=== PATIENT | female | born 1945 | race Caucasian/White ===

== ENCOUNTER 2018-07-14 16:55 | Emergency (ER) | payer OTHER, SELFPAY ==
--- NOTE | 2018-07-14 17:38 | ER ---
Nurse's Notes [facility] Name: Sonia Barbour Age: 72 yrs Sex: Female : 1945 Arrival Date: 07/14/2018 Time: 16:59 Bed 5 Private MD: Leland Rdz Diagnosis: Urinary tract infection, site not specified Presentation: 07/14 17:00 Presenting complaint: Patient states: i can just barley pee, i need to pee all the time ch and it barbour. this started yesterday. And i have renal failure but i dont know which stage. and there are sores on my legs, they hurt. Transition of care: patient was not received from another setting of care. Onset of symptoms was July 13, 2018. Risk Assessment: Do you want to hurt yourself or someone else? Patient reports no desire to harm self or others. Initial Sepsis Screen: Does the patient meet any 2 criteria? No. Patient's initial sepsis screen is negative. Does the patient have a suspected source of infection? No. Patient's initial sepsis screen is negative. Care prior to arrival: None. 17:00 Method Of Arrival: Wheelchair ch 17:00 Acuity: PAULINO 4 ch Triage Assessment: 17:06 General: Appears in no apparent distress. comfortable, Behavior is calm, cooperative, ch appropriate for age. Historical: - Allergies: 17:06 Sulfa (Sulfonamide Antibiotics); ch - Home Meds: 17:06 Tresiba FlexTouch U-100 100 unit/mL (3 mL) subcutaneous inpn [Active]; furosemide 80 mg ch Oral tab 1 tab 2 times per day [Active]; Senokot 8.6 mg Oral tab 2 tabs once daily [Active]; aspirin 81 mg Oral chew 1 tab once daily [Active]; spironolactone 50 mg Oral tab 1 tab 2 times per day [Active]; allopurinol 100 mg Oral tab 1 tab once daily [Active]; amlodipine 5 mg tab 1 tab once daily [Active]; aloe vera 25 mg oral cap [Active]; atorvastatin 10 mg oral tab 1 tab once daily [Active]; - PMHx: 17:06 Hypertension; Lupus; Diabetes - IDDM; kidney failure; neck pain/crick; lymphedema; ch edema; COPD; hypoxia-normally 88-95%; - PSHx: 17:06 ; Cholecystectomy; navel probe; ch - Immunization history:: Adult Immunizations up to date. - Social history:: Smoking status: Patient/guardian denies using tobacco. - Ebola Screening: : Patient negative for fever greater than or equal to 101.5 degrees Fahrenheit, and additional compatible Ebola Virus Disease symptoms Patient denies exposure to infectious person Patient denies travel to an Ebola-affected area in the 21 days before illness onset No symptoms or risks identified at this time. Screenin:19 Abuse screen: Denies threats or abuse. Nutritional screening: No deficits noted. tw2 Tuberculosis screening: No symptoms or risk factors identified. Fall Risk None identified. Assessment: 17:10 General: Appears in no apparent distress. obese, unkempt, Behavior is calm, tw2 cooperative, appropriate for age. Pain: Complains of pain in "burning with urination". Neuro: Level of Consciousness is awake, alert, obeys commands, Oriented to person, place, time, situation. Cardiovascular: Denies chest pain, shortness of breath, Heart tones S1 S2 Capillary refill < 3 seconds Patient's skin is warm and dry. Respiratory: Airway is patent Respiratory effort is even, unlabored, Respiratory pattern is regular, symmetrical. GI: No signs and/or symptoms were reported involving the gastrointestinal system. Abdomen is round non-distended, obese, Bowel sounds present X 4 quads. : Reports burning with urination. EENT: No signs and/or symptoms were reported regarding the EENT system. Derm: No signs and/or symptoms reported regarding the dermatologic system. Skin is dry. Musculoskeletal: Circulation, motion, and sensation intact. Range of motion: intact in all extremities. 17:46 Reassessment: Patient appears in no apparent distress at this time. No changes from tw2 previously documented assessment. Patient and/or family updated on plan of care and expected duration. Pain level reassessed. Patient is alert, oriented x 3, equal unlabored respirations, skin warm/dry/pink. Vital Signs: 17:06 BP 174 / 79; Pulse 77; Resp 24; Temp 99.2; Pulse Ox 93% on R/A; Height 5 ft. 7 in. ch (170.18 cm); Pain 8/10; 17:14 Weight 130.95 kg; aa5 17:14 Body Mass Index 45.22 (130.95 kg, 170.18 cm) aa5 ED Course: 16:59 Patient arrived in ED. as 16:59 Leland Rdz MD is Private Physician. as 17:02 Triage completed. 17:06 Arm band placed on left wrist. Patient placed in an exam room, on a stretcher. 17:09 Constantino Perez PA is PHCP. jr8 17:17 Reva Nielsen RN is Primary Nurse. tw2 17:18 Bed in low position. Call light in reach. Adult w/ patient. Pulse ox on. NIBP on. tw2 17:26 Diaz Garcia MD is Attending Physician. jr8 17:30 Straight cath inserted, using sterile technique, 18 Fr. Specimen obtained. ROBBY Juárez tw2 served as archery instructor Returned odette urine. Patient tolerated well. 17:38 Leland Rdz MD is Referral Physician. jr8 17:42 Urine Microscopic Only Sent. tw2 17:46 No provider procedures requiring assistance completed. Patient did not have IV access tw2 during this emergency room visit. Administered Medications: No medications were administered Outcome: 17:38 Discharge ordered by . jr8 17:46 Discharged to home via wheelchair, with family. tw2 17:46 Condition: stable 17:46 Discharge instructions given to patient, family, Instructed on discharge instructions, follow up and referral plans. medication usage, Demonstrated understanding of instructions, follow-up care, medications, Prescriptions given X 1. 17:46 Patient left the ED. tw2 Addendum: 07/17/2018 08:46 Addendum: Culture Results: Positive urine culture. No further action required. Bacteria s s sensitive to prescribed antibiotic. Signatures: Ann Menezes RN RN ch Martinez, Amelia as Calderon, Audri, RN RN aa5 Shama Davis RN RN Constantino Perez PA PA jr8 Reva Nielsen RN RN tw2 Corrections: (The following items were deleted from the chart) 07/14 17:08 17:00 Presenting complaint: Patient states: i can just barley pee, i need to pee all ch the time and it barbour. this started yesterday. And i have renal failure but i dont know which stage.
--- NOTE | 2018-07-14 17:38 | EDPHYS ---
Physician Documentation [facility] Name: Sonia Bright Age: 72 yrs Sex: Female : 1945 Arrival Date: 07/14/2018 Time: 16:59 Bed 5 Private MD: Leland Rdz ED Physician Diaz Garcia HPI: 07/14 17:23 This 72 yrs old Female presents to ER via Wheelchair with complaints of jr8 Urinary Problem. 17:23 The patient presents with urinary symptoms, dysuria. Onset: The symptoms/episode jr8 began/occurred acutely, today. Modifying factors: The symptoms are alleviated by nothing, the symptoms are aggravated by urinating. Associated signs and symptoms: The patient has no apparent associated signs or symptoms. Severity of symptoms: At their worst the symptoms were moderate, in the emergency department the symptoms are unchanged. The patient has not experienced similar symptoms in the past. The patient has not recently seen a physician. Historical: - Allergies: 17:06 Sulfa (Sulfonamide Antibiotics); ch - Home Meds: 17:06 Tresiba FlexTouch U-100 100 unit/mL (3 mL) subcutaneous inpn [Active]; furosemide 80 mg ch Oral tab 1 tab 2 times per day [Active]; Senokot 8.6 mg Oral tab 2 tabs once daily [Active]; aspirin 81 mg Oral chew 1 tab once daily [Active]; spironolactone 50 mg Oral tab 1 tab 2 times per day [Active]; allopurinol 100 mg Oral tab 1 tab once daily [Active]; amlodipine 5 mg tab 1 tab once daily [Active]; aloe vera 25 mg oral cap [Active]; atorvastatin 10 mg oral tab 1 tab once daily [Active]; - PMHx: 17:06 Hypertension; Lupus; Diabetes - IDDM; kidney failure; neck pain/crick; lymphedema; ch edema; COPD; hypoxia-normally 88-95%; - PSHx: 17:06 ; Cholecystectomy; navel probe; ch - Immunization history:: Adult Immunizations up to date. - Social history:: Smoking status: Patient/guardian denies using tobacco. - Ebola Screening: : Patient negative for fever greater than or equal to 101.5 degrees Fahrenheit, and additional compatible Ebola Virus Disease symptoms Patient denies exposure to infectious person Patient denies travel to an Ebola-affected area in the 21 days before illness onset No symptoms or risks identified at this time. ROS: 17:23 Eyes: Negative for injury, pain, redness, and discharge, ENT: Negative for injury, jr8 pain, and discharge, Neck: Negative for injury, pain, and swelling, Cardiovascular: Negative for chest pain, palpitations, and edema, Respiratory: Negative for shortness of breath, cough, wheezing, and pleuritic chest pain, Abdomen/GI: Negative for abdominal pain, nausea, vomiting, diarrhea, and constipation, Back: Negative for injury and pain, MS/Extremity: Negative for injury and deformity, Skin: Negative for injury, rash, and discoloration, Neuro: Negative for headache, weakness, numbness, tingling, and seizure. 17:23 : Positive for urinary symptoms, small amounts, burning with urination. Exam: 17:23 Eyes: Pupils equal round and reactive to light, extra-ocular motions intact. Lids and jr8 lashes normal. Conjunctiva and sclera are non-icteric and not injected. Cornea within normal limits. Periorbital areas with no swelling, redness, or edema. ENT: Nares patent. No nasal discharge, no septal abnormalities noted. Tympanic membranes are normal and external auditory canals are clear. Oropharynx with no redness, swelling, or masses, exudates, or evidence of obstruction, uvula midline. Mucous membranes moist. Neck: Trachea midline, no thyromegaly or masses palpated, and no cervical lymphadenopathy. Supple, full range of motion without nuchal rigidity, or vertebral point tenderness. No Meningismus. Cardiovascular: Regular rate and rhythm with a normal S1 and S2. No gallops, murmurs, or rubs. Normal PMI, no JVD. No pulse deficits. 3 + bilateral lower extremity edema Respiratory: Lungs have equal breath sounds bilaterally, clear to auscultation and percussion. No rales, rhonchi or wheezes noted. No increased work of breathing, no retractions or nasal flaring. Abdomen/GI: Soft, non-tender, with normal bowel sounds. No distension or tympany. No guarding or rebound. No evidence of tenderness throughout. Back: No spinal tenderness. No costovertebral tenderness. Full range of motion. Skin: Warm, dry with normal turgor. Normal color with no rashes, no lesions, and no evidence of cellulitis. MS/ Extremity: Pulses equal, no cyanosis. Neurovascular intact. Full, normal range of motion. Neuro: Awake and alert, GCS 15, oriented to person, place, time, and situation. Cranial nerves II-XII grossly intact. Motor strength 5/5 in all extremities. Sensory grossly intact. Vital Signs: 17:06 BP 174 / 79; Pulse 77; Resp 24; Temp 99.2; Pulse Ox 93% on R/A; Height 5 ft. 7 in. ch (170.18 cm); Pain 8; 17:14 Weight 130.95 kg; aa5 17:14 Body Mass Index 45.22 (130.95 kg, 170.18 cm) [facility] MDM: 17:09 Patient medically screened. [facility] 17:37 Data reviewed: vital signs, nurses notes, lab test result(s), and as a result, I will 8 discharge patient. Data interpreted: Pulse oximetry: on room air is 93 %. Interpretation: acceptable. Counseling: I had a detailed discussion with the patient and/or guardian regarding: the historical points, exam findings, and any diagnostic results supporting the discharge/admit diagnosis, lab results, the need for outpatient follow up, a family practitioner, to return to the emergency department if symptoms worsen or persist or if there are any questions or concerns that arise at home. 07/14 17:19 Order name: Urine Microscopic Only [facility] 07/14 17:38 Order name: Urine Dipstick--Ancillary (enter results) bd 07/14 17:19 Order name: Urine Dipstick-Ancillary (obtain specimen); Complete Time: 17:42 [facility] 07/14 17:20 Order name: Straight Cath - Urine; Complete Time: 17:39 [facility] Administered Medications: No medications were administered Disposition: 07/14/18 17:38 Discharged to Home. Impression: Urinary tract infection, site not specified. - Condition is Stable. - Discharge Instructions: Urinary Tract Infection, Adult. - Prescriptions for Levaquin 500 mg Oral Tablet - take 1 tablet by ORAL route once daily for 5 days; 5 tablet. - Medication Reconciliation Form, Thank You Letter, Antibiotic Education, Prescription Opioid Use form. - Follow up: Leland Rdz MD; When: 2 - 3 days; Reason: Recheck today's complaints, Continuance of care, Re-evaluation by your physician. - Problem is new. - Symptoms have improved. Addendum: 07/15/2018 17:47 Co-signature as Attending Physician, Diaz Garcia MD I agree with the assessment and c gunter plan of care. Signatures: Dispatcher [employer] EDAnn Molina, RN RN Diaz Nunez MD MD cha Roszak, Josh, PA PA jr8 Reva Nielsen, RN RN tw2 Corrections: (The following items were deleted from the chart) 07/14 17:46 17:38 07/14/2018 17:38 Discharged to Home. Impression: Urinary tract infection, site tw2 not specified. Condition is Stable. Forms are Medication Reconciliation Form, Thank You Letter, Antibiotic Education, Prescription Opioid Use. Follow up: Leland Rdz; When: 2 - 3 days; Reason: Recheck today's complaints, Continuance of care, Re-evaluation by your physician. Problem is new. Symptoms have improved. jr8
[2018-07-14 17:49] LABS: Urine Bacteria LOADED /HPF (<20); Urine RBC <5 /HPF (NONE SEEN)
[2018-07-14 17:50] LABS: Urine Culture Reflex Order REFLEXED
[2018-07-14 17:57] LABS: Urine Blood TRACE (NEG); Urine Glucose NEGATIVE (NEG); Urine Protein NEGATIVE (NEG); Urine pH 5.5 (5.0-7.0)
== END 2018-07-14 17:46 | disposition home or self-care (01) ==
LOC: ER 16:55
DX: N39.0 Urinary tract infection, site not specified (principal); I10 Essential (primary) hypertension; E11.9 Type 2 diabetes mellitus without complications; J44.9 Chronic obstructive pulmonary disease, unspecified; Z79.4 Long term (current) use of insulin; Z79.82 Long term (current) use of aspirin; Z88.2 Allergy status to sulfonamides
CPT/HCPCS: 51702; 81003; 81015; 87077; 87086; 87088; 87186; 99283

== ENCOUNTER 2019-05-15 23:47 | Observation (INO) | payer OTHER ==
[2019-05-16 00:38] LABS: Absolute Lymphocytes (CBC) 2.6 K/uL (0.7-4.9); Basophils % 0.6 % (0-1.3); Hematocrit 49.7 % (36.0-45.0); Lymphocytes % 23.8 % (15.3-44.8); MPV 8.6 fL (7.6-11.3); RBC Red Blood Cell Count 6.01 M/uL (3.86-4.86)
[2019-05-16 00:43] LABS: Protime INR 1.09
[2019-05-16 01:00] LABS: ALT/SGPT 25 U/L (12-78); AST/SGOT 26 U/L (15-37); Alkaline Phosphatase 151 U/L (45-117); BUN Blood Urea Nitrogen 23 mg/dL (7-18); Bicarbonate 35 mmol/L (21-32); Bilirubin Direct 0.2 mg/dL (0-0.2); Bilirubin Total 0.6 mg/dL (0.2-1.0); CKMB Creatine Kinase MB < 1.0 ng/mL (0.3-3.6); Creatine Phosphokinase 35 U/L (26-192); Glucose Level 79 mg/dL (74-106); Lipase 202 U/L (73-393); Magnesium 2.1 mg/dL (1.8-2.4); NT PRO-BNP 255 pg/mL (<125); Protein, Total 8.1 g/dL (6.4-8.2); Sodium Level 137 mmol/L (136-145); Troponin (Emerg Dept Use Only) < 0.02 ng/mL (0.0-0.045)
--- NOTE | 2019-05-16 02:45 | EDPHYS ---
Physician Documentation [facility] Name: Sonia Bright Age: 73 yrs Sex: Female : 1945 Arrival Date: 05/15/2019 Time: 23:50 Bed 4 Private MD: Lealnd Rdz ED Physician Molina Kincaid HPI: 05/16 02:58 This 73 yrs old Female presents to ER via Wheelchair with complaints of tw4 Breathing Difficulty. 02:58 The patient has shortness of breath at rest. Onset: The symptoms/episode began/occurred tw4 2 day(s) ago. Duration: The symptoms are continuous, and are unchanged since they started. The patient's shortness of breath has no apparent modifying factors. Associated signs and symptoms: The patient has no apparent associated signs or symptoms. Severity of symptoms: At their worst the symptoms were moderate in the emergency department the symptoms are unchanged. The patient has not experienced similar symptoms in the past. Historical: - Allergies: 00:06 Sulfa (Sulfonamide Antibiotics); ak1 00:06 Lidocaine; ak1 00:06 Novocain; ak1 - Home Meds: 00:06 Tresiba FlexTouch U-100 100 unit/mL (3 mL) subcutaneous inpn [Active]; spironolactone ak1 50 mg Oral tab 1 tab 2 times per day [Active]; Senokot 8.6 mg Oral tab 2 tabs once daily [Active]; furosemide 80 mg Oral tab 1 tab 2 times per day [Active]; atorvastatin 10 mg Oral tab 1 tab once daily [Active]; aspirin 81 mg Oral chew 1 tab once daily [Active]; amlodipine 5 mg tab 1 tab once daily [Active]; allopurinol 100 mg Oral tab 1 tab once daily [Active]; aloe vera 25 mg Oral cap [Active]; - PMHx: 00:06 COPD; Diabetes - IDDM; Diabetes - NIDDM; EDEMA; Hypertension; hypoxia-normally 88-95%; ak1 kidney failure; Lupus; lymphedema; neck pain/crick; - PSHx: 00:06 ; Cholecystectomy; navel probe; ak1 - Immunization history:: Adult Immunizations unknown. - Social history:: Smoking status: Patient/guardian denies using tobacco, the patient reports quitting approximately 35 years ago. - Ebola Screening: : No symptoms or risks identified at this time. ROS: 02:58 Constitutional: Negative for fever, chills, and weight loss, Eyes: Negative for injury, tw4 pain, redness, and discharge, Cardiovascular: Negative for chest pain, palpitations, and edema, Abdomen/GI: Negative for abdominal pain, nausea, vomiting, diarrhea, and constipation, Back: Negative for injury and pain, MS/Extremity: Negative for injury and deformity, Skin: Negative for injury, rash, and discoloration, Neuro: Negative for headache, weakness, numbness, tingling, and seizure. 02:58 Respiratory: Positive for shortness of breath. Exam: 02:58 Constitutional: This is a well developed, well nourished patient who is awake, alert, tw4 and in no acute distress. Head/Face: Normocephalic, atraumatic. Chest/axilla: Normal chest wall appearance and motion. Nontender with no deformity. No lesions are appreciated. Cardiovascular: Regular rate and rhythm with a normal S1 and S2. No gallops, murmurs, or rubs. Normal PMI, no JVD. No pulse deficits. Respiratory: Lungs have equal breath sounds bilaterally, clear to auscultation and percussion. No rales, rhonchi or wheezes noted. No increased work of breathing, no retractions or nasal flaring. Abdomen/GI: Soft, non-tender, with normal bowel sounds. No distension or tympany. No guarding or rebound. No evidence of tenderness throughout. 02:58 Musculoskeletal/extremity: Extremities: noted in the left wilson: chronic venous stasis ulcers, noted in the right wilson: chronic venous stasis ulcers. Vital Signs: 05/15 23:58 BP 152 / 73; Pulse 77; Resp 20; Temp 97.5(O); Pulse Ox 89% on R/A; Weight 113.4 kg (R); ak1 Height 5 ft. 9 in. (175.26 cm) (R); Pain 0/10; 05/16 00:02 Pulse Ox 94% on 2 lpm NC; ak1 01:57 BP 125 / 67; Pulse 73; Resp 18; Temp 97.6(TE); Pulse Ox 93% on 2 lpm NC; Pain 0/10; ak1 03:00 BP 142 / 68; Pulse 76; Resp 18; Pulse Ox 93% on 2 lpm NC; jb4 05/15 23:58 Body Mass Index 36.92 (113.40 kg, 175.26 cm) ak1 MDM: 05/15 23:54 Patient medically screened. 05/16 02:58 Differential diagnosis: Anxiety Reaction asthma, Bronchitis CHF exacerbation, tw4 Myocardial Infarction pneumonia. Antibiotic administration: Not indicated. Data reviewed: vital signs, nurses notes. Data interpreted: Pulse oximetry: on room air is 88 %. Interpretation: hypoxia. Plan: O2 by NC applied. Counseling: I had a detailed discussion with the patient and/or guardian regarding: the historical points, exam findings, and any diagnostic results supporting the discharge/admit diagnosis, lab results, radiology results. Physician consultation: Ron Schumacher MD was called at 03:00, regarding admission, to the telemetry unit. and will see patient in inpatient room. 05/15 23:55 Order name: Blood Culture Adult (2) 05/15 23:55 Order name: BMP; Complete Time: :57 05/16 01:57 Interpretation: Normal except: CL 97; BUN 23; GFR 41. 05/15 23:55 Order name: CBC with Diff; Complete Time: 01:57 05/16 01:57 Interpretation: Normal except: WBC 11.1; RBC 6.01; HGB 16.0; HCT 49.7; MCV 82.7; MCH tw4 26.6; PLT 633; RDW 19.0. 05/15 23:55 Order name: Ckmb; Complete Time: 01:57 05/16 01:58 Interpretation: Within normal limits: CKMB < 1.0. 05/15 23:55 Order name: CPK; Complete Time: 01:57 05/16 01:58 Interpretation: Within normal limits: CPK 35. 05/15 23:55 Order name: D-Dimer; Complete Time: 01:58 05/16 01:58 Interpretation: Abnormal: D-DIMER 810. 05/15 23:55 Order name: Hepatic Function; Complete Time: 01:57 05/16 01:57 Interpretation: Normal except: ALK 151; ALB 3.0; GLOB 5.1; A/G 0.6. 05/15 23:55 Order name: Lipase; Complete Time: 01:57 05/16 01:58 Interpretation: Within normal limits: LIP 202. 05/15 23:55 Order name: Magnesium; Complete Time: 01:57 tw 05/16 01:58 Interpretation: Within normal limits: MG 2.1. 05/15 23:55 Order name: NT PRO-BNP; Complete Time: 01:57 [email or web address]] 05/16 01:58 Interpretation: Normal except: NT PRO-BNP 255. 05/15 23:55 Order name: PT-INR; Complete Time: 01:59 05/16 01:59 Interpretation: Abnormal. 05/15 23:55 Order name: Ptt, Activated; Complete Time: 01:59 05/16 01:59 Interpretation: Abnormal: PTT 63.4. 05/15 23:55 Order name: Troponin (emerg Dept Use Only); Complete Time: 01:57 [facility] [[email or web address]] 05/16 01:58 Interpretation: Within normal limits: TROPED < 0.02. 05/16 00:25 Order name: Glucose, Ancillary Testing; Complete Time: 01:57 EDMS 05/16 01:58 Interpretation: Within normal limits: GLUC,ANCIL 80. 05/15 23:55 Order name: Call for Old EKG; Complete Time: 00:02 05/15 23:55 Order name: XRAY CXR (1 view) 05/15 23:55 Order name: EKG; Complete Time: 23:58 05/15 23:55 Order name: Cardiac monitoring; Complete Time: 00:02 05/15 23:55 Order name: EKG - Nurse/Tech; Complete Time: 00:02 05/15 23:55 Order name: IV Saline Lock; Complete Time: 00:28 05/15 23:55 Order name: Labs collected and sent; Complete Time: 00:29 05/15 23:55 Order name: O2 Per Protocol; Complete Time: 00:02 05/15 23:55 Order name: O2 Sat Monitoring; Complete Time: 00:02 05/16 03:12 Order name: Troponin I EDMS 05/16 03:12 Order name: Troponin I EDMS EC:07 Rate is 63 beats/min. Rhythm is regular with 1st degree heart block. QRS [place] is tw4 Normal. SD interval is normal. QRS interval is normal. No Q waves. T waves are Normal. No ST changes noted. Clinical impression: NSR w/ Non-specific ST/T Changes. Interpreted by me. Reviewed by me. Administered Medications: No medications were administered Point of Care Testing: Blood Glucose: 00:25 Blood Glucose: 80 mg/dL; ak1 00:25 pt stated she felt as if her blood sugar was "low" pt given orange juice. ak1 Ranges: Critical Glucose Levels:Adult <50 mg/dl or >400 mg/dl <40 mg/dl or >180 mg/dl Disposition: 05/16/19 02:43 Hospitalization ordered by Ron Schumacher for Inpatient Admission. Preliminary diagnosis is Chronic obstructive pulmonary disease with (acute) exacerbation. - Bed requested for Telemetry/MedSurg (observation). - Status is Inpatient Admission. fc - Condition is Fair. - Problem is an ongoing problem. - Symptoms are unchanged. UTI on Admission? No Signatures: Dispatcher [employer] [facility] Lexie Boudreaux, RN RN Meenakshi Mckeon RN RN ak1 Molina Kincaid MD MD tw4 Enedina Villarreal mw2 Bri Lowe ar5 Corrections: (The following items were deleted from the chart) 02:04 00:37 Chest For PE [id number].[id number] ordered. [facility] 03:16 02:43 Hospitalization Ordered by Ron Schumacher MD for Inpatient Admission. Preliminary ar5 diagnosis is Chronic obstructive pulmonary disease with (acute) exacerbation. Bed requested for Telemetry/MedSurg (observation). Status is Inpatient Admission. Condition is Fair. Problem is an ongoing problem. Symptoms are unchanged. UTI on Admission? No. tw4 04:16 03:16 05/16/2019 02:43 Hospitalization Ordered by Ron Schumacher MD for Inpatient fc Admission. Preliminary diagnosis is Chronic obstructive pulmonary disease with (acute) exacerbation. Bed requested for Telemetry/MedSurg (observation). Status is Inpatient Admission. Condition is Fair. Problem is an ongoing problem. Symptoms are unchanged. UTI on Admission? No. ar5
--- NOTE | 2019-05-16 02:45 | ER ---
Nurse's Notes [facility] Name: Sonia Bright Age: 73 yrs Sex: Female : 1945 Arrival Date: 05/15/2019 Time: 23:50 Bed 4 Private MD: Leland Rdz Diagnosis: Chronic obstructive pulmonary disease with (acute) exacerbation Presentation: 05/16 00:02 Presenting complaint: Patient states: SOB "for a long time" that worsened tonight at ak1 1700. pt denies pain. Transition of care: patient was not received from another setting of care. Onset of symptoms is unknown. Risk Assessment: Do you want to hurt yourself or someone else? Patient reports no desire to harm self or others. Initial Sepsis Screen: Does the patient meet any 2 criteria? No. Patient's initial sepsis screen is negative. Does the patient have a suspected source of infection? No. Patient's initial sepsis screen is negative. Care prior to arrival: None. 00:02 Method Of Arrival: Wheelchair ak1 00:02 Acuity: PAULINO 3 ak1 00:02 Note pt is wheelchair bound. ak1 Triage Assessment: 00:06 General: Appears in no apparent distress. obese, unkempt, Behavior is calm, ak1 cooperative. Pain: Denies pain. EENT: No signs and/or symptoms were reported regarding the EENT system. Neuro: Level of Consciousness is awake, alert, obeys commands, Oriented to person, place, time, situation, Moves all extremities. Gait is pt uses wheelchair at home. . Speech is normal. 00:29 Respiratory: Reports shortness of breath at rest on exertion since 1700 Onset: The ak symptoms/episode began/occurred 1700 tonight SOB worsened. pt stated she has had SOB "for a long time" pt sees Dr. Couch and states she need a sleep study done. , the patient has mild shortness of breath Denies cough. Historical: - Allergies: 00:06 Sulfa (Sulfonamide Antibiotics); ak1 00:06 Lidocaine; ak1 00:06 Novocain; ak1 - Home Meds: 00:06 Tresiba FlexTouch U-100 100 unit/mL (3 mL) subcutaneous inpn [Active]; spironolactone ak1 50 mg Oral tab 1 tab 2 times per day [Active]; Senokot 8.6 mg Oral tab 2 tabs once daily [Active]; furosemide 80 mg Oral tab 1 tab 2 times per day [Active]; atorvastatin 10 mg Oral tab 1 tab once daily [Active]; aspirin 81 mg Oral chew 1 tab once daily [Active]; amlodipine 5 mg tab 1 tab once daily [Active]; allopurinol 100 mg Oral tab 1 tab once daily [Active]; aloe vera 25 mg Oral cap [Active]; - PMHx: 00:06 COPD; Diabetes - IDDM; Diabetes - NIDDM; EDEMA; Hypertension; hypoxia-normally 88-95%; ak1 kidney failure; Lupus; lymphedema; neck pain/crick; - PSHx: 00:06 ; Cholecystectomy; navel probe; ak1 - Immunization history:: Adult Immunizations unknown. - Social history:: Smoking status: Patient/guardian denies using tobacco, the patient reports quitting approximately 35 years ago. - Ebola Screening: : No symptoms or risks identified at this time. Screenin:25 Abuse screen: Denies threats or abuse. Denies injuries from another. Nutritional ak1 screening: No deficits noted. Tuberculosis screening: No symptoms or risk factors identified. Fall Risk Ambulatory Aid- Crutches/Cane/Walker (15 pts). Assessment: 00:25 General: Appears in no apparent distress. comfortable, obese, unkempt, Behavior is ak1 calm, cooperative, appropriate for age. Pain: Denies pain. Neuro: Level of Consciousness is awake, alert, obeys commands, Oriented to person, place, time, situation, Appropriate for age Logistics Planner are equal bilaterally Moves all extremities. Gait is pt uses wheelchair at home and needs assistance with ambulation. . Cardiovascular: Rhythm is regular. Respiratory: Airway is patent Respiratory effort is even, unlabored, Respiratory pattern is regular, symmetrical, Breath sounds are clear bilaterally. GI: No signs and/or symptoms were reported involving the gastrointestinal system. : No signs and/or symptoms were reported regarding the genitourinary system. EENT: No signs and/or symptoms were reported regarding the EENT system. Derm: No signs and/or symptoms reported regarding the dermatologic system. Musculoskeletal: pt uses wheelchair at home, needs assistance with ambulation. 01:23 Reassessment: pt in CT. ak1 01:58 Reassessment: Patient appears in no apparent distress at this time. No changes from ak1 previously documented assessment. Patient and/or family updated on plan of care and expected duration. Pain level reassessed. Patient is alert, oriented x 3, equal unlabored respirations, skin warm/dry/pink. pt returned from CT with skin tears from attempt at moving from ER stretcher to CT table. pipe organ technician Mona stated pt refused to lay flat for CT. pt stated she can not lay flat, she can not breath laying flat. Dr. Kincaid notified. Vital Signs: 05/15 23:58 BP 152 / 73; Pulse 77; Resp 20; Temp 97.5(O); Pulse Ox 89% on R/A; Weight 113.4 kg (R); ak1 Height 5 ft. 9 in. (175.26 cm) (R); Pain 0/10; 05/16 00:02 Pulse Ox 94% on 2 lpm NC; ak1 01:57 BP 125 / 67; Pulse 73; Resp 18; Temp 97.6(TE); Pulse Ox 93% on 2 lpm NC; Pain 0/10; ak1 03:00 BP 142 / 68; Pulse 76; Resp 18; Pulse Ox 93% on 2 lpm NC; jb4 05/15 23:58 Body Mass Index 36.92 (113.40 kg, 175.26 cm) ak1 ED Course: 05/15 23:50 Patient arrived in ED. es 23:50 Leland Rdz MD is Private Physician. es 23:54 Molina Kincaid MD is Attending Physician. tw4 23:58 Arm band placed on Patient placed in an exam room, on a stretcher, on oxygen, on ak1 monitor car operator, on pulse oximetry. 05/16 00:03 Triage completed. ak1 00:20 Initial lab(s) drawn, by ky, sent to lab. First set of blood cultures drawn by me, ak1 Second set of blood cultures drawn pedi culture sent EKG done, by ED staff, reviewed by Molina Kincaid MD X-ray(s) taken. Oxygen administration via nasal cannula \\T\\ 2L/min. 00:25 Meenakshi Mckeon, RN is Primary Nurse. ak1 00:25 Patient has correct armband on for positive identification. Placed in gown. Bed in low ak1 position. Call light in reach. Side rails up X2. Adult w/ patient. court recording monitor on. Pulse ox on. NIBP on. 00:25 Inserted saline lock: 20 gauge in right antecubital area, using aseptic technique. ak1 Blood collected. 00:27 XRAY CXR (1 view) In Process Unspecified. EDMN 02:43 Ron Schumacher MD is Hospitalizing Provider. tw4 02:51 No provider procedures requiring assistance completed. Patient admitted, IV remains in ak1 place. Administered Medications: No medications were administered Point of Care Testing: Blood Glucose: 00:25 Blood Glucose: 80 mg/dL; ak1 00:25 pt stated she felt as if her blood sugar was "low" pt given orange juice. ak1 Ranges: Outcome: 02:43 Decision to Hospitalize by Provider. tw4 02:51 Condition: good ak1 02:51 Instructed on the need for admit. 03:54 Admitted to Tele accompanied by tech, family with patient, via stretcher, room 419, ak1 with oxygen, with chart, Report called to Denita BUSTAMANTE 04:16 Patient left the ED. fc Signatures: Dispatcher [employer] Preeti Ellison Felicia, RN RN fc Meenakshi Mcekon RN RN ak1 Louis Rock, ROBBY RN 4 Molina Kincaid MD MD tw4
[2019-05-16] MEDS ORDERED: IPRATROPIUM BROM 0.5MG/2.5ML NEB PRN (03:10)
[2019-05-16] MEDS ORDERED: ACETAMINOPHEN 500 MG TAB PO PRN (03:10)
[2019-05-16] MEDS ORDERED: ALBUTEROL 2.5 MG/3 ML NEB SOL NEB PRN (03:10)
[2019-05-16] MEDS ORDERED: METHYLPREDNISOLONE 40 MG INJ IV SCH (04:00)
[2019-05-16 04:38] VITALS: BMI 44.0
--- NOTE | 2019-05-16 07:45 | P.HP ---
Certification for Inpatient Patient admitted to: Observation With expected LOS: <2 Midnights Patient will require the following post-hospital care: None Practitioner: I am a practitioner with admitting privileges, knowledge of patient current condition, hospital course, and medical plan of care. Services: Services provided to patient in accordance with Admission requirements found in Title 42 Section 412.3 of the Code of Federal Regulations Patient History Date of Service: 05/16/19 Reason for admission: Acute COPD exacerbation History of Present Illness: Patient is a 73-year-old female who presents to the hospital with shortness of breath. She states she has been feeling some abdominal distention and has noticed that she has had more difficulty with her respirations over the last 24 hours. She came into the hospital for further evaluation. In the emergency room, patient was found to have a leukocytosis and was hypoxic with the O2 sat of 89%. Patient has been told she possibly has obstructive sleep apnea but she has not arranged for outpatient sleep study. She does have a history of diastolic congestive heart failure & COPD. She is on Lasix and Aldactone. She will be admitted to the hospital for further evaluation. Initially, she had stated that she was feeling better and wanted to go home. However, they stated they would be able to get her upstairs immediately, and she decided to stay in the hospital for further evaluation. I found out that patient was still in the hospital after reviewing medical records. Will consult Pulmonary for further evaluation. Allergies Sulfa (Sulfonamide Antibiotics) Allergy (Verified 07/26/12 14:13) Anaphylaxis "all victorina for numbing" Allergy (Uncoded 03/31/19 08:36) Unknown Albuterol Allergy (Uncoded 02/24/15 00:47) Unknown Home Medications: Allopurinol [Zyloprim] 100 mg PO DAILY 03/31/19 Amlodipine [Norvasc] 5 mg PO DAILY 03/31/19 Atorvastatin Calcium [Lipitor] 10 mg PO BEDTIME 03/31/19 Furosemide 80 mg PO DAILY 03/31/19 Insulin Aspart [Novolog Flexpen] 55 unit SQ TID 03/31/19 Insulin Degludec [Tresiba Flextouch U-200] 100 unit SQ DAILY 03/31/19 Spironolactone [Aldactone] 50 mg PO BID 03/31/19 - Past Medical/Surgical History Has patient received pneumonia vaccine in the past: No Diabetic: Yes -: HTN -: DM -: Lymphedema -: Insomnia -: -: Cholecystectomy - Family History Father Medical History: Cancer Mother Medical History: Stroke - Social History Smoking Status: Former smoker Alcohol use: No CD- Drugs: No Caffeine use: Yes Place of Residence: Home Review of Systems 10-point ROS is otherwise unremarkable Physical Examination - Vital Signs Temperature: 96.5 F Blood Pressure: 141/68 Pulse: 81 Respirations: 16 Pulse Ox (%): 94 - Physical Exam General: Alert, In no apparent distress, Oriented x3 HEENT: Atraumatic, PERRLA, Mucous membr. moist/pink, EOMI, Sclerae nonicteric Neck: Supple, 2+ carotid pulse no bruit, No LAD, Without JVD or thyroid abnormality Respiratory: Diminished, Expiratory wheezes Cardiovascular: Regular rate/rhythm, Normal S1 S2, Systolic murmur Gastrointestinal: Normal bowel sounds, Soft and benign, Non-distended, No tenderness Musculoskeletal: No clubbing, No tenderness, Swelling Integumentary: No rashes Neurological: Normal speech, Normal tone, Sensation intact, Cranial nerves 3-12 intact, Normal affect, Abnormal gait, Abnormal strength Lymphatics: No axilla or inguinal lymphadenopathy - Studies Laboratory Data (last 24 hrs) 05/16/19 00:20: PT 12.8 H, INR 1.09, APTT 63.4 H 05/16/19 00:20: WBC 11.1 H, Hgb 16.0 H, Hct 49.7 H, Plt Count 633 H 05/16/19 00:20: Sodium 137, Potassium 4.0, BUN 23 H, Creatinine 1.29, Glucose 79 , Magnesium 2.1, Total Bilirubin 0.6, AST 26, ALT 25, Alkaline Phosphatase 151 H , Lipase 202 Microbiology Data (last 24 hrs): 05/16/19 00:20 Blood - Blood Anaerobic Blood Culture - Final Assessment & Plan - Problems (Diagnosis) (1) COPD (chronic obstructive pulmonary disease) with acute bronchitis Current Visit: Yes Status: Acute (2) CHF (congestive heart failure) Current Visit: Yes Status: Acute (3) Chronic venous hypertension w/ulcer and inflammation involv both sides Current Visit: No Status: Acute (4) Diabetes Current Visit: No Status: Acute Qualifiers: Diabetes mellitus type: type 2 (5) Hyperlipidemia Current Visit: No Status: Acute (6) Hypertension Current Visit: No Status: Acute Qualifiers: Hypertension type: essential hypertension Qualified Code(s): I10 - Essential (primary) hypertension (7) Lymphedema Current Visit: No Status: Acute (8) Thrombocytosis Current Visit: Yes Status: Acute - Plan -nebs, steroids, and antibiotics; continue with gentle diuresing -O2 per protocol. -outpt sleep study -liver function testing; repeat coagulation profile; repeat CBC -repeat chest x-ray -pulmonary consultation Discharge Plan: Home Plan to discharge in: 48 Hours - Advance Directives Does patient have a Living Will: No Does patient have a Durable POA for Healthcare: No - Code Status/Comfort Care Code Status Assessed: Yes Code Status: Full Code Critical Care: No Time Spent Managing PTS Care (In Minutes): 45
[2019-05-16] MEDS ORDERED: GLUCAGON 1 MG/VIAL IM PRN ×2 (07:57→08:58)
[2019-05-16] MEDS ORDERED: D50W 25 GM/50 ML SYRINGE IV PRN ×2 (07:57→08:58)
[2019-05-16 08:13] LABS: Urine Appearance CLEAR; Urine Bilirubin NEGATIVE (NEG); Urine Blood NEGATIVE (NEG); Urine Color YELLOW; Urine Glucose NEGATIVE (NEG); Urine Protein 1+ (NEG)
[2019-05-16 08:28] LABS: Urine Microscopic Reflex ORDER UMIC
[2019-05-16] MEDS ORDERED: ASPIRIN EC 81 MG TAB PO SCH (09:00)
[2019-05-16] MEDS ORDERED: INSULIN ASPART 55 UNIT SQ SCH (09:00)
[2019-05-16] MEDS ORDERED: HOME MED 1 EA UNK (Spironolactone [Aldactone] 50 MG) PO SCH (09:00)
[2019-05-16] MEDS ORDERED: PNEUMOCOCCAL VACCINE 0.5 ML IMVAC ONE (09:00)
[2019-05-16] MEDS ORDERED: FUROSEMIDE 20 MG/ 2ML VIAL IV SCH (09:00)
[2019-05-16 09:02] LABS: Urine Bacteria <20 /HPF (<20); Urine Culture Reflex Order NOT NEEDED; Urine RBC <5 /HPF (NONE SEEN)
--- NOTE | 2019-05-16 09:08 | EKG ---
Test Date: 2019-05-16 Test Time: 00:08:42 Therapy Administrative Assistant: GABRIELE MEASUREMENT RESULTS: Intervals: Rate: 63 NE: 210 QRSD: 98 QT: 462 QTc: 472 [place]: P: 30 NE: 210 QRS: -33 T: 46 INTERPRETIVE STATEMENTS: Sinus rhythm with 1st degree AV block Left axis deviation Cannot rule out Anterior infarct, age undetermined Abnormal ECG Compared to ECG 12/13/2017 19:57:12 First degree AV block now present Myocardial infarct finding still present Electronically Signed On 05-16-19 09:07:37 CDT by Faustino De La Cruz
[2019-05-16] MEDS: INSULIN LISPRO 100 UNIT/1 ML SQ SCH ×3 (09:28→17:00)
[2019-05-16] MEDS: INSULIN GLARGINE 100 UNITS/ML SQ SCH (09:29)
[2019-05-16] MEDS: SPIRONOLACTONE 25 MG TABLET PO SCH ×2 (09:30→20:00)
[2019-05-16] MEDS: ALLOPURINOL 100 MG TAB PO SCH (09:30)
[2019-05-16] MEDS: FUROSEMIDE 40 MG/4 ML VIAL IV SCH ×2 (09:30→20:00)
[2019-05-16] MEDS: AMLODIPINE 5 MG TAB PO SCH (09:30)
[2019-05-16 11:28] LABS: Arterial Blood Carboxyhemoglob 1.8 % (0-1.5); Blood Gas Oxyhemoglobin 88.9 % (94-97); Blood O2 Saturation 91.1 % (92-98.5)
--- NOTE | 2019-05-16 11:35 | P.PN ---
Subjective Date of Service: 05/17/19 (Hospitalist) Chief Complaint: Hypoxemia Patient is 73 years of age add recently saw her in my clinic patient was scheduled to have a sleep study done admitted with hypoxemia she has never smoked patient's oxygen saturation satisfactory she was scheduled to have an outpatient ABG in was unable to do so denies any cough sputum hemoptysis chest pain Review of Systems General: Weakness Respiratory: Shortness of Breath Cardiovascular: Edema (Lower extremity edema) Physical Examination - Vital Signs Temperature: 96.6 F Blood Pressure: 158/74 Pulse: 82 Respirations: 20 Pulse Ox (%): 90 - Physical Exam General: Alert, Oriented x3 Neck: Supple Respiratory: Clear to auscultation bilaterally, Diminished Cardiovascular: Edema - Studies Laboratory Data (last 24 hrs) 05/16/19 00:20: PT 12.8 H, INR 1.09, APTT 63.4 H 05/16/19 00:20: WBC 11.1 H, Hgb 16.0 H, Hct 49.7 H, Plt Count 633 H 05/16/19 00:20: Sodium 137, Potassium 4.0, BUN 23 H, Creatinine 1.29, Glucose 79 , Magnesium 2.1, Total Bilirubin 0.6, AST 26, ALT 25, Alkaline Phosphatase 151 H , Lipase 202 Microbiology Data (last 24 hrs): 05/16/19 00:20 Blood - Blood Anaerobic Blood Culture - Final Assessment & Plan - Problems (Diagnosis) (1) Respiratory failure Current Visit: Yes Status: Acute Plan: Patient is 73 years of age admitted with hypoxemia no prior history of COPD never smoked the check her arterial blood gases patient was scheduled to have outpatient sleep study he probably has a fatty liver. Abnormally elevated alkaline phosphatase patient is polycythemic blood pressure elevated chest x- ray shows cardiomegaly possible volume overload continue with diuretics patient did not qualify for home O2 from my office Qualifiers: Chronicity: acute on chronic
[2019-05-16] MEDS: INSULIN -REGULAR HUMAN 50 UNIT/0.5 ML ML SQ SCH ×3 (11:51→21:36)
--- NOTE | 2019-05-16 12:07 | RAD REPORT ---
EXAM DESCRIPTION: RAD - Chest Single View - 05/16/2019 12:13 am CLINICAL HISTORY: SOB Chest pain. COMPARISON: No comparisonsChest Pa And Lat (2 Views) dated 01/10/2018; Chest Pa And Lat (2 Views) dyllan ed 12/07/2017; CHEST PA AND LAT 2 VIEW dated 08/30/2013; CHEST PA AND LAT 2 VIEW dated 06/06/2011 FINDINGS: Portable technique limits examination quality. Mild interstitial pulmonary edema is noted. The heart is moderately enlarged in size. The patient's c hin obscures a portion of the superior chest. IMPRESSION: Mild CHF.
[2019-05-17 06:52] LABS: Potassium 4.8 mmol/L (3.5-5.1)
[2019-05-17] MEDS: INSULIN -REGULAR HUMAN 50 UNIT/0.5 ML ML SQ SCH ×3 (07:30→16:30)
[2019-05-17 07:32] LABS: Absolute Lymphocytes (CBC) 1.4 K/uL (0.7-4.9); Basophils % 0.2 % (0-1.3); Hematocrit 51.1 % (36.0-45.0); Lymphocytes % 8.8 % (15.3-44.8); RBC Red Blood Cell Count 6.14 M/uL (3.86-4.86)
[2019-05-17] MEDS: INSULIN LISPRO 100 UNIT/1 ML SQ SCH ×3 (08:26→16:33)
[2019-05-17] MEDS: INSULIN GLARGINE 100 UNITS/ML SQ SCH (08:26)
[2019-05-17] MEDS: ALLOPURINOL 100 MG TAB PO SCH (08:27)
[2019-05-17] MEDS: FUROSEMIDE 40 MG/4 ML VIAL IV SCH (08:28)
[2019-05-17] MEDS: AMLODIPINE 5 MG TAB PO SCH (08:28)
[2019-05-17] MEDS: SPIRONOLACTONE 25 MG TABLET PO SCH (08:28)
[2019-05-17] MEDS ORDERED: ALLOPURINOL 100 MG TAB PO SCH (09:00)
[2019-05-17] MEDS ORDERED: ATORVASTATIN 10 MG TAB PO SCH (09:00)
[2019-05-17] MEDS ORDERED: ASPIRIN EC 81 MG TAB PO SCH (09:00)
[2019-05-17] MEDS ORDERED: AMLODIPINE 5 MG TAB PO SCH (09:00)
--- NOTE | 2019-05-17 09:56 | P.PN ---
Subjective Date of Service: 05/17/19 Chief Complaint: Respiratory failure No change in patient's condition denies any shortness of breath Review of Systems General: Weakness Cardiovascular: Edema Physical Examination - Vital Signs Temperature: 96.6 F Blood Pressure: 158/74 Pulse: 82 Respirations: 20 Pulse Ox (%): 90 - Physical Exam General: Alert, Oriented x3 HEENT: Atraumatic Neck: Supple Respiratory: Clear to auscultation bilaterally Cardiovascular: Edema Neurological: Normal speech - Studies Microbiology Data (last 24 hrs): 05/16/19 00:20 Blood - Blood Anaerobic Blood Culture - Final Assessment & Plan - Problems (Diagnosis) (1) Respiratory failure Current Visit: Yes Status: Acute Plan: Patient is chronically hypoxic hypercapnic as not qualify for home oxygen. Patient has abnormally console cardiology 2D echo resume p.o. diuretics patient advice to schedule an outpatient sleep study cardiology evaluation prior to discharge echocardiogram ordered troponins on admission were negative vital signs stable Qualifiers: Chronicity: acute on chronic
[2019-05-17 16:43] VITALS: BP 138/63; TEMP 97.3; O2SAT 93
--- NOTE | 2019-05-17 18:01 | P.DS ---
Admission Date: 05/16/19 Discharge Date: 05/17/19 Disposition: ROUTINE DISCHARGE Discharge Condition: FAIR Reason for Admission: Respiratory failure - Problems (1) Respiratory failure Status: Acute Qualifiers: Chronicity: acute on chronic Brief History of Present Illness: Pt presented with hypoxemia Hospital Course: Pt admitted with hypoxemia. ABG hypoxic hypercarbic resp failire.Pt did well. EKG's S/B cardilogy,BNP elevated. TSH normal .Pt did not qualify for home O2. Instructed to have sleep study done as outpatient Vital Signs/Physical Exam: Temp Pulse Resp BP Pulse Ox 97.3 F 74 20 138/63 93 05/17/19 16:00 05/17/19 16:00 05/17/19 16:00 05/17/19 16:00 05/17/19 16:00 Laboratory Data at Discharge: WBC 16.3 K/uL (4.3-10.9) H D 05/17/19 06:20 Hgb 16.1 g/dL (12.0-15.0) H 05/17/19 06:20 Hct 51.1 % (36.0-45.0) H 05/17/19 06:20 Plt Count 700 K/uL (152-406) H 05/17/19 06:20 PT 12.8 SECONDS (9.5-12.5) H 05/16/19 00:20 INR 1.09 05/16/19 00:20 APTT 63.4 SECONDS (24.3-36.9) H 05/16/19 00:20 Sodium 136 mmol/L (136-145) 05/17/19 06:20 Potassium 4.8 mmol/L (3.5-5.1) 05/17/19 06:20 BUN 33 mg/dL (7-18) H 05/17/19 06:20 Creatinine 1.19 mg/dL (0.55-1.3) 05/17/19 06:20 Glucose 139 mg/dL (74-106) H 05/17/19 06:20 Magnesium 2.1 mg/dL (1.8-2.4) 05/16/19 00:20 Total Bilirubin 0.6 mg/dL (0.2-1.0) 05/16/19 00:20 AST 26 U/L (15-37) 05/16/19 00:20 ALT 25 U/L (12-78) 05/16/19 00:20 Alkaline Phosphatase 151 U/L (45-117) H 05/16/19 00:20 Troponin I < 0.02 ng/mL (0.0-0.045) 05/16/19 07:37 Lipase 202 U/L (73-393) 05/16/19 00:20 Home Medications: Allopurinol [Zyloprim*] 100 mg PO DAILY 05/16/19 Amlodipine [Norvasc*] 1 tab PO DAILY 05/16/19 Aspirin [Aspirin EC 81 MG] 1 tab PO DAILY 05/16/19 Atorvastatin Calcium 10 mg PO DAILY 05/16/19 Furosemide 80 mg PO DAILY 05/16/19 Insulin Aspart [Novolog] See Protocol SQ TID 05/16/19 Insulin Degludec [Tresiba Flextouch U-200] 100 units SQ DAILY 05/16/19 Spironolactone [Aldactone] 50 mg PO BID 05/16/19 Diet: ADA Followup: Tono Garcia MD [ACTIVE - CAN ADMIT] - (call to schedule appointment)
--- NOTE | 2019-05-17 22:23 | CON ---
Date of Consultation: 05/17/2019 Reason For Consultation: Shortness of breath and abnormal EKG. History Of Present Illness: Ms. Bright is a 73-year-old woman, who has never really had any previous cardiac history. She has a history of morbid obesity. She weighs 298 pounds. She has a history of COPD, gout, hypertension, diabetes, dyslipidemia, lupus, lymphedema, and chronic renal insufficiency stage 3. She came in with shortness of breath, was hypoxic. Her initial pO2 was 64 with a pCO2 of 5 3, pH was 7.41. Never had any chest pain, mostly had issues with shortness of breath. Her chest x-r ay showed mild failure. EKG showed old anterior SC. She denied any palpitations or syncope. Has im proved dramatically on COPD therapy. She is awaiting to go home on her home oxygen and follow up. Past Medical History: As stated above. Allergies: INCLUDE SULFA AND CAROLINE. Review of Systems: Negative. Social History: Negative. Family History: Noncontributory. Medications: At home include allopurinol, Norvasc, aspirin, Lipitor, Lasix, insulin, and aldactone. Physical Examination: General: Ms. Bright weighed 298 pounds. She was in no acute distress. Vital Signs: Stable. She was afebrile. Chest: Clear to auscultation and percussion. Cardiac: Revealed a regular rhythm and rate without any murmurs, gallops, or rubs. Abdomen: Obese, but benign. Extremities: Revealed lymphedema bilaterally. Diagnostic Data: Includes a blood gas that was mentioned earlier. Her white count was 16,000. Her D-dimer was 810. BNP was 858 with a glucose of 139. Her GFR is 41. Chest x-ray showed mild CHF. EKG showed possible old anterior SC. Impression And Plan: 1.Abnormal EKG, secondary to chronic obstructive pulmonary disease and obesity. Patient had no ches t pain. She has what may be congestive heart failure on x-ray, although with her size and chronic ob structive pulmonary disease, I am not so sure this is the case. Nevertheless, I will be careful with diuresis considering her renal dysfunction. I am comfortable with her going home. It would be reas onable to have her do an echocardiogram as an outpatient. I believe her body habitus and size and wo uld make it very difficult for her to have a stress test. She would be a poor candidate for a chemic al stress test as well. 2.Chronic obstructive pulmonary disease exacerbation. 3.Gout. 4.Hypertension, well controlled. 5.Diabetes, well controlled. 6.Dyslipidemia, well controlled. 7.History of lupus. 8.Lymphedema. 9.Renal insufficiency stage 3. The case was discussed with Dr. Garcia. I would agree with her present regimen. I agree with her going. Home O2 is being planned. SILVESTRE/KODAK Voice ID: [id number] Report ID: [id number]
== END 2019-05-17 17:45 | disposition home or self-care (01) ==
LOC: ER 23:47 → ERHOLD 05-16 03:09 → 4TH 05-16 03:50
PROVIDERS: ADMIT Hospitalist; ATTEND Hospitalist
DX: J44.1 Chronic obstructive pulmonary disease with (acute) exacerbation (principal); J96.21 Acute and chronic respiratory failure with hypoxia; I12.9 Hypertensive chronic kidney disease with stage 1 through stage 4 chronic kidney disease, or unspecified chronic kidney disease; E11.22 Type 2 diabetes mellitus with diabetic chronic kidney disease; N18.3 Chronic kidney disease, stage 3 (moderate); I89.0 Lymphedema, not elsewhere classified; M10.9 Gout, unspecified; Z88.2 Allergy status to sulfonamides
CPT/HCPCS: 36415; 71045; 80048; 80076; 81003; 81015; 82550; 82553; 82805; 82962; 83690; 83735; 83880; 84443; 84484; 85025; 85379; 85610; 85730; 87040; 93005; 94760; 99285; G0378; J1940; J2920

== ENCOUNTER 2019-07-30 16:16 | Emergency (ER) | payer OTHER ==
[2019-07-30 18:12] LABS: Arterial Blood Carboxyhemoglob 1.9 % (0-1.5); Blood Gas Oxyhemoglobin 93.9 % (94-97); Blood O2 Saturation 96.2 % (92-98.5)
[2019-07-30 19:18] LABS: Arterial Blood Carboxyhemoglob 1.6 % (0-1.5); Blood Gas Oxyhemoglobin 88.9 % (94-97)
--- NOTE | 2019-07-30 19:32 | EDPHYS ---
Physician Documentation [facility] Name: Sonia Bright Age: 73 yrs Sex: Female : 1945 Arrival Date: 07/30/2019 Time: 18:00 Bed 7 Private MD: ED Physician Jimmie Barcenas HPI: 07/30 19:35 This 73 yrs old Female presents to ER via Unassigned with complaints of kdr Breathing Difficulty. 19:35 The patient has shortness of breath at rest, The patient has extreme kyphosis which is kdr now periodically especially when she sleeps. She is not able to lay down and her head droops forward. When in this position, she occasionally has difficulty breathing. Once her head is raised, her SOB resolves. Onset: The symptoms/episode began/occurred gradually, at an unknown time. Duration: The symptoms are intermittent. The patient's shortness of breath is aggravated by Slleeping. Associated signs and symptoms: The patient has no apparent associated signs or symptoms. Severity of symptoms: At their worst the symptoms were mild in the emergency department the symptoms have improved mildly. The patient has experienced similar episodes in the past, chronically. The patient has been recently seen by a physician: the patient's primary care provider. Historical: - Allergies: 18:14 Lidocaine; jl7 18:14 Novocain; jl7 18:14 Sulfa (Sulfonamide Antibiotics); jl7 18:14 Iodine; jl7 - Home Meds: 18:14 spironolactone 50 mg Oral tab 1 tab 2 times per day [Active]; furosemide 80 mg Oral tab jl7 1 tab 2 times per day [Active]; atorvastatin 10 mg Oral tab 1 tab once daily [Active]; allopurinol 100 mg Oral tab 1 tab once daily [Active]; amlodipine 5 mg tab 1 tab once daily [Active]; Tresiba FlexTouch U-100 100 unit/mL (3 mL) subcutaneous inpn [Active]; Novolog 100 unit/mL Sub-Q soln [Active]; Advair Diskus Inhl [Active]; - PMHx: 18:14 COPD; Diabetes - IDDM; Diabetes - NIDDM; EDEMA; Hypertension; hypoxia-normally 88-95%; jl7 kidney failure; Lupus; lymphedema; neck pain/crick; - PSHx: 18:14 ; Cholecystectomy; navel probe; jl7 - Immunization history:: Adult Immunizations unknown. - Social history:: Smoking status: unknown. - Ebola Screening: : No symptoms or risks identified at this time. ROS: 19:35 Constitutional: Negative for fever, chills, and weight loss, Eyes: Negative for injury, kdr pain, redness, and discharge, ENT: Negative for injury, pain, and discharge, Neck: Negative for injury, pain, and swelling, Cardiovascular: Negative for chest pain, palpitations, and edema, Abdomen/GI: Negative for abdominal pain, nausea, vomiting, diarrhea, and constipation, Back: Negative for injury and pain, : Negative for injury, bleeding, discharge, and swelling, Neuro: Negative for headache, weakness, numbness, tingling, and seizure activity. Psych: Negative for depression, anxiety, suicide ideation, homicidal ideation, and hallucinations, Allergy/Immunology: Negative for hives, rash, and allergies, Endocrine: Negative for neck swelling, polydipsia, polyuria, polyphagia, and marked weight changes, Hematologic/Lymphatic: Negative for swollen nodes, abnormal bleeding, and unusual bruising. 19:35 Respiratory: Positive for shortness of breath, Negative for hemoptysis, pleurisy, wheezing. 19:35 MS/extremity: Positive for Bilateral leg swelling which is chronic and worsening over time. Exam: 19:35 Constitutional: This is a well developed, well nourished patient who is awake, alert, kdr and in no acute distress. Head/Face: Normocephalic, atraumatic. Eyes: Pupils equal round and reactive to light, extra-ocular motions intact. Lids and lashes normal. Conjunctiva and sclera are non-icteric and not injected. Cornea within normal limits. Periorbital areas with no swelling, redness, or edema. Neck: Trachea midline, no thyromegaly or masses palpated, and no cervical lymphadenopathy. Supple, full range of motion without nuchal rigidity, or vertebral point tenderness. No Meningismus. Chest/axilla: Normal chest wall appearance and motion. Nontender with no deformity. No lesions are appreciated. Cardiovascular: Regular rate and rhythm with a normal S1 and S2. No gallops, murmurs, or rubs. Normal PMI, no JVD. No pulse deficits. 19:35 Abdomen/GI: Inspection: obese 19:35 Musculoskeletal/extremity: Bilateral swelling - chronic. Vital Signs: 17:15 BP 144 / 67; Pulse 71; Resp 14 S; Pulse Ox 91% on R/A; jl7 18:00 BP 120 / 74; Pulse 69; Resp 19; Pulse Ox 96% on 2 lpm NC; jl7 18:46 BP 120 / 83; Pulse 75; Resp 19 S; Pulse Ox 93% on R/A; jl7 19:25 BP 102 / 80; Pulse 70; Resp 17; Temp 98; Pulse Ox 94% on R/A; rr5 MDM: 19:31 Patient medically screened. kdr 19:35 Data reviewed: vital signs, nurses notes, radiologic studies. Counseling: I had a kdr detailed discussion with the patient and/or guardian regarding: the historical points, exam findings, and any diagnostic results supporting the discharge/admit diagnosis, the need for outpatient follow up. Physician consultation: Tono Garcia MD and will see patient in office, next week, States that he has not been able to find that the patient is hypoxic enough to qualify for insurance coverage of a home oxygen supply. Physician consultation: Leland Rdz MD regarding patient's condition, outpatient follow-up, next week, and will see patient in office, next week. ED course: The patient was stable and non-acute in the ED. There was no evidence by history or physical of a need for an acute intervention in what has been chronic problems that are progressively worsening over time. 07/30 18:00 Order name: ABG Arterial Blood Gas; Complete Time: 18:23 EDMS 07/30 18:23 Order name: ABG kdr 07/30 18:00 Order name: EKG Electrocardiogram; Complete Time: 18:44 EDMS Administered Medications: No medications were administered Disposition: 07/30/19 19:31 Discharged to Home. Impression: Shortness of breath - Secondary to body habitus. - Condition is Stable. - Discharge Instructions: Shortness of Breath, [id number]. - Medication Reconciliation Form, Thank You Letter form. - Follow up: Private Physician; When: 2 - 3 days; Reason: If symptoms return, Further diagnostic work-up, Recheck today's complaints, Continuance of care, Re-evaluation by your physician. - Problem is an ongoing problem. - Symptoms are unchanged. Signatures: Dispatcher [employer] EDDC Jimmie Barcenas MD MD kdr Marti Faye RN RN iw Vijay Decker, RN RN jl7 Rashi Herrera, RN RN rr5 Corrections: (The following items were deleted from the chart) 19:31 19:31 07/30/2019 19:31 Discharged to Home. Impression: Shortness of breath. Condition kdr is Stable. Forms are Medication Reconciliation Form, Thank You Letter, Antibiotic Education, Prescription Opioid Use. Follow up: Private Physician; When: 2 - 3 days; Reason: If symptoms return, Further diagnostic work-up, Recheck today's complaints, Continuance of care, Re-evaluation by your physician. Problem is an ongoing problem. Symptoms are unchanged. kdr 20:00 19:31 07/30/2019 19:31 Discharged to Home. Impression: Shortness of breath - Secondary rr5 to body habitus. Condition is Stable. Forms are Medication Reconciliation Form, Thank You Letter, Antibiotic Education, Prescription Opioid Use. Follow up: Private Physician; When: 2 - 3 days; Reason: If symptoms return, Further diagnostic work-up, Recheck today's complaints, Continuance of care, Re-evaluation by your physician. Problem is an ongoing problem. Symptoms are unchanged. kdr
--- NOTE | 2019-07-30 19:32 | ER ---
Nurse's Notes [facility] Name: Sonia Bright Age: 73 yrs Sex: Female : 1945 Arrival Date: 07/30/2019 Time: 18:00 Bed 7 Private MD: Diagnosis: Shortness of breath-Secondary to body habitus Presentation: 07/30 18:11 Risk Assessment: Do you want to hurt yourself or someone else? Patient reports no jl7 desire to harm self or others. Initial Sepsis Screen: Does the patient meet any 2 criteria? No. Patient's initial sepsis screen is negative. Does the patient have a suspected source of infection? No. Patient's initial sepsis screen is negative. Care prior to arrival: None. 18:11 Acuity: PAULINO 3 jl7 Historical: - Allergies: 18:14 Lidocaine; jl7 18:14 Novocain; jl7 18:14 Sulfa (Sulfonamide Antibiotics); jl7 18:14 Iodine; jl7 - Home Meds: 18:14 spironolactone 50 mg Oral tab 1 tab 2 times per day [Active]; furosemide 80 mg Oral tab jl7 1 tab 2 times per day [Active]; atorvastatin 10 mg Oral tab 1 tab once daily [Active]; allopurinol 100 mg Oral tab 1 tab once daily [Active]; amlodipine 5 mg tab 1 tab once daily [Active]; Tresiba FlexTouch U-100 100 unit/mL (3 mL) subcutaneous inpn [Active]; Novolog 100 unit/mL Sub-Q soln [Active]; Advair Diskus Inhl [Active]; - PMHx: 18:14 COPD; Diabetes - IDDM; Diabetes - NIDDM; EDEMA; Hypertension; hypoxia-normally 88-95%; jl7 kidney failure; Lupus; lymphedema; neck pain/crick; - PSHx: 18:14 ; Cholecystectomy; navel probe; jl7 - Immunization history:: Adult Immunizations unknown. - Social history:: Smoking status: unknown. - Ebola Screening: : No symptoms or risks identified at this time. Screenin:30 Abuse screen: Denies threats or abuse. Denies injuries from another. Nutritional jl7 screening: No deficits noted. Tuberculosis screening: No symptoms or risk factors identified. Fall Risk No fall in past 12 months (0 pts). Secondary diagnosis (15 points) impaired mobility, No IV (0 pts). Ambulatory Aid- None/Bed Rest/Nurse Assist (0 pts). Gait- Impaired (20 pts.). Mental Status- Overestimates/Forgets Limitations (15 pts.). Assessment: 17:30 General: Appears in no apparent distress. uncomfortable, obese, unkempt, Behavior is jl7 calm, cooperative, appropriate for age. Pain: Complains of pain in OROSCO. Neuro: Level of Consciousness is awake, alert, obeys commands, Oriented to person, place, time, situation. Cardiovascular: Patient's skin is warm and dry. Rhythm is regular. Respiratory: Airway is patent Respiratory effort is even, unlabored, Respiratory pattern is regular, symmetrical, Breath sounds are clear bilaterally. GI: Abdomen is round non-distended. EENT: Eyes. Derm: Skin is pink, warm \T\ dry. 19:25 Reassessment: awaiting for review. repeat ABG done. General: Appears in no apparent rr5 distress. uncomfortable, Behavior is calm, cooperative, appropriate for age. Pain: Complains of pain in head Pain radiates to neck Pain Quality of pain is described as aching, Pain began gradually, Is intermittent. Neuro: Level of Consciousness is awake, alert, obeys commands, Oriented to person, place, time, situation, Appropriate for age Reports headache. Cardiovascular: Capillary refill < 3 seconds Patient's skin is warm and dry. Respiratory: Airway is patent Respiratory effort is even, unlabored, Respiratory pattern is regular, symmetrical. GI: Abdomen is round obese. : No signs and/or symptoms were reported regarding the genitourinary system. : No signs and/or symptoms were reported regarding the genitourinary system. EENT: Eyes reddened left eye. Derm: Skin is pink, warm \T\ dry. Musculoskeletal: Circulation, motion, and sensation intact. Capillary refill < 3 seconds. 19:56 Reassessment: Patient appears in no apparent distress at this time. Patient is alert, rr5 oriented x 3, equal unlabored respirations, skin warm/dry/pink. discharge instruction given and explained without complaints, verbalized understanding. Vital Signs: 17:15 BP 144 / 67; Pulse 71; Resp 14 S; Pulse Ox 91% on R/A; jl7 18:00 BP 120 / 74; Pulse 69; Resp 19; Pulse Ox 96% on 2 lpm NC; jl7 18:46 BP 120 / 83; Pulse 75; Resp 19 S; Pulse Ox 93% on R/A; jl7 19:25 BP 102 / 80; Pulse 70; Resp 17; Temp 98; Pulse Ox 94% on R/A; rr5 ED Course: 17:30 Patient has correct armband on for positive identification. Call light in reach. Side jl7 rails up X 1. monitoring analyst on. Pulse ox on. NIBP on. pt sitting in personal wheelchair. 18:00 Patient arrived in ED. iw 18:00 Arm band placed on right wrist. jl7 18:04 Jimmie Barcenas MD is Attending Physician. iw 18:10 Vijay Decker, RN is Primary Nurse. jl7 18:12 Triage completed. jl7 19:58 No provider procedures requiring assistance completed. Patient did not have IV access rr5 during this emergency room visit. Administered Medications: No medications were administered Outcome: 19:31 Discharge ordered by . kdr 19:58 Discharged to home via wheelchair, with family. rr5 19:58 Condition: stable 19:58 Discharge instructions given to patient, family, Instructed on discharge instructions, follow up and referral plans. oxygen prescription. Demonstrated understanding of instructions, follow-up care. 20:00 Patient left the ED. rr5 Signatures: Jimmie Barcenas MD MD kdr Marti Faye RN RN iw Vijay Decker RN RN jl7 Rashi Herrera RN RN rr5
[2019-07-30 21:35] VITALS: BP 102/80; TEMP 98; O2SAT 94
--- NOTE | 2019-07-31 07:44 | EKG ---
Test Date: 2019-07-30 Test Time: 17:19:47 Dial Refinisher: ESE MEASUREMENT RESULTS: Intervals: Rate: 69 KS: 216 QRSD: 90 QT: 444 QTc: 475 [place]: P: 58 KS: 216 QRS: -34 T: 41 INTERPRETIVE STATEMENTS: Sinus rhythm with 1st degree AV block with premature atrial complexes Left axis deviation Possible Anterior infarct, age undetermined Abnormal ECG Compared to ECG 05/16/2019 00:08:42 Atrial premature complex(es) now present Myocardial infarct finding still present Electronically Signed On 07-31-19 07:42:50 CDT by Ortiz Gonsalves
== END 2019-07-30 20:00 | disposition home or self-care (01) ==
LOC: ER 16:16
DX: R06.02 Shortness of breath (principal)
CPT/HCPCS: 82805; 93005; 99284

== ENCOUNTER 2019-10-11 17:48 | Emergency (ER) | payer OTHER ==
[2019-10-11] MEDS ORDERED: IPRATROPIUM BROM 0.5MG/2.5ML ONE (18:13)
[2019-10-11] MEDS ORDERED: ALBUTEROL 2.5 MG/3 ML NEB SOL ONE (18:13)
--- NOTE | 2019-10-11 19:25 | ER ---
Nurse's Notes [facility] Name: Sonia Bright Age: 74 yrs Sex: Female : 1945 Arrival Date: 10/11/2019 Time: 17:49 Bed 8 Private MD: Diagnosis: Acute upper respiratory infection, unspecified Presentation: 10/11 18:01 Presenting complaint: Patient states: SOB started earlier today and she checked her sv pulse ox and it was 62%. Pt appears in no apparent distress at this time. Transition of care: patient was not received from another setting of care. Onset of symptoms was October 11, 2019. Risk Assessment: Do you want to hurt yourself or someone else? Patient reports no desire to harm self or others. Initial Sepsis Screen: Does the patient meet any 2 criteria? RR > 20 per min. No. Patient's initial sepsis screen is negative. Does the patient have a suspected source of infection? No. Patient's initial sepsis screen is negative. Care prior to arrival: None. 18:01 Method Of Arrival: Wheelchair sv 18:01 Acuity: PAULINO 3 sv Triage Assessment: 18:01 General: Appears in no apparent distress. comfortable, well developed, Behavior is sv calm, cooperative, appropriate for age. Pain: Denies pain. Neuro: Level of Consciousness is awake, alert, obeys commands, Oriented to person, place, time, situation, Moves all extremities. Full function Speech is normal. Cardiovascular: Capillary refill is sluggish in bilateral fingers Patient's skin is warm and dry. Respiratory: Reports shortness of breath at rest Airway is patent Respiratory effort is even, unlabored, Respiratory pattern is regular, tachypnea Onset: The symptoms/episode began/occurred today, the patient has mild shortness of breath. Derm: Skin is normal. Historical: - Allergies: 18:06 Iodine; sv 18:06 Lidocaine; sv 18:06 Novocain; sv 18:06 Sulfa (Sulfonamide Antibiotics); sv - Home Meds: 18:06 Advair Diskus Inhl [Active]; allopurinol 100 mg Oral tab 1 tab once daily [Active]; sv atorvastatin 10 mg Oral tab 1 tab once daily [Active]; amlodipine 5 mg tab 1 tab once daily [Active]; furosemide 80 mg Oral tab 1 tab once daily [Active]; Tresiba FlexTouch U-100 100 unit/mL (3 mL) subcutaneous inpn [Active]; Novolog 100 unit/mL Sub-Q soln [Active]; - PMHx: 18:06 COPD; Diabetes - IDDM; EDEMA; Hypertension; hypoxia-normally 88-95%; kidney failure; sv Lupus; lymphedema; neck pain/crick; - PSHx: 18:06 ; Cholecystectomy; navel probe; sv - Immunization history:: Adult Immunizations up to date, Flu vaccine is up to date. - Social history:: Smoking status: Patient/guardian denies using tobacco. - Ebola Screening: : No symptoms or risks identified at this time. Screenin:00 Abuse screen: Denies threats or abuse. Denies injuries from another. Nutritional sv screening: No deficits noted. Tuberculosis screening: No symptoms or risk factors identified. Fall Risk None identified. Assessment: 18:45 Reassessment: Patient appears in no apparent distress at this time. No changes from sv previously documented assessment. Patient and/or family updated on plan of care and expected duration. Pain level reassessed. Patient is alert, oriented x 3, equal unlabored respirations, skin warm/dry/pink. 20:03 Reassessment: pt is A\T\O x 4, resp unlabored, verbalized understanding of and agrees to bb plan of care discharge instructions given pt assisted to exit via wheelchair accompanied by family. Vital Signs: 18:06 BP 146 / 68; Pulse 72; Resp 22; Temp 97.6; Pulse Ox 85% on R/A; Weight 127.01 kg; sv Height 5 ft. 9 in. (175.26 cm); 18:45 BP 128 / 67; Pulse 68; Resp 22; Pulse Ox 96% on 2 lpm NC; sv 20:04 BP 134 / 62; Pulse 70; Resp 18 S; Temp 97.7(O); Pulse Ox 96% on 2 lpm NC; bb 18:06 Body Mass Index 41.35 (127.01 kg, 175.26 cm) sv 18:06 Pt placed on O2 \T\ 2L per NC, O2 sat up to 95%. sv ED Course: 17:49 Patient arrived in ED. as 17:59 Zev Sy NP is PHCP. pm1 18:00 Jagdeep Foley MD is Attending Physician. pm1 18:00 Jacoby, Kellen, RN is Primary Nurse. sv 18:00 Patient has correct armband on for positive identification. Call light in reach. Adult sv w/ patient. Pulse ox on. NIBP on. Door closed. 18:04 Triage completed. sv 18:07 Arm band placed on. sv 18:17 Flu and/or RSV swab sent to lab. Strep swab sent to lab. sv 18:43 Throat Culture Sent. sv 19:24 Tono Garcia MD is Referral Physician. pm1 20:05 No provider procedures requiring assistance completed. Patient did not have IV access bb during this emergency room visit. Administered Medications: 18:17 Drug: Albuterol - atroVENT (3:1) (2.5 mg - 0.5 mg) 3 ml Route: Nebulizer; sv 18:43 Follow up: Response: No adverse reaction sv 19:50 Drug: predniSONE 60 mg Route: PO; rb1 20:03 Follow up: Response: No adverse reaction bb 20:03 Not Given (Patient Refused): Rocephin (cefTRIAXone) 1 grams IM once bb Outcome: 19:24 Discharge ordered by . pm1 20:05 Discharged to home via wheelchair, with family. bb 20:05 Condition: stable 20:05 Discharge instructions given to patient. 20:06 Patient left the ED. bb Signatures: Kellen Dozier, Celina Loyd RN, Brenda, RN RN bb Sarita Webster, ROBBY RN rb1 Zev Sy, GLOBAL MARKETING SPECIALIST GLOBAL MARKETING SPECIALIST pm1
--- NOTE | 2019-10-11 19:25 | EDPHYS ---
Physician Documentation [facility] Name: Sonia Bright Age: 74 yrs Sex: Female : 1945 Arrival Date: 10/11/2019 Time: 17:49 Bed 8 Private MD: ED Physician Jagdeep Foley HPI: 10/11 18:09 This 74 yrs old Female presents to ER via Wheelchair with complaints of pm1 Shortness Of Breath. 18:09 The patient has shortness of breath at rest. Onset: The symptoms/episode began/occurred pm1 this morning. Duration: The symptoms are continuous. The patient's shortness of breath is aggravated by exertion, is alleviated by nothing. Associated signs and symptoms: Pertinent positives: productive cough, Pertinent negatives: chest pain, fever, nausea, vomiting. The patient has not recently seen a physician, has an appointment scheduled, Dr Garcia in 2 days. Patient presented to the ER with complaints of shortness of breath with a cough. She believes that she might have the flu. Her and son who are present in the ER with here have the same symptoms of cough, cold, and congestion. Historical: - Allergies: 18:06 Iodine; sv 18:06 Lidocaine; sv 18:06 Novocain; sv 18:06 Sulfa (Sulfonamide Antibiotics); sv - Home Meds: 18:06 Advair Diskus Inhl [Active]; allopurinol 100 mg Oral tab 1 tab once daily [Active]; sv atorvastatin 10 mg Oral tab 1 tab once daily [Active]; amlodipine 5 mg tab 1 tab once daily [Active]; furosemide 80 mg Oral tab 1 tab once daily [Active]; Tresiba FlexTouch U-100 100 unit/mL (3 mL) subcutaneous inpn [Active]; Novolog 100 unit/mL Sub-Q soln [Active]; - PMHx: 18:06 COPD; Diabetes - IDDM; EDEMA; Hypertension; hypoxia-normally 88-95%; kidney failure; sv Lupus; lymphedema; neck pain/crick; - PSHx: 18:06 ; Cholecystectomy; navel probe; sv - Immunization history:: Adult Immunizations up to date, Flu vaccine is up to date. - Social history:: Smoking status: Patient/guardian denies using tobacco. - Ebola Screening: : No symptoms or risks identified at this time. ROS: 18:09 Constitutional: Negative for fever, chills, and weight loss, Eyes: Negative for injury, pm1 pain, redness, and discharge, ENT: Negative for injury, pain, and discharge, Neck: Negative for injury, pain, and swelling, Cardiovascular: Negative for chest pain, palpitations, and edema. 18:09 Abdomen/GI: Negative for abdominal pain, nausea, vomiting, diarrhea, and constipation, Back: Negative for injury and pain, : Negative for injury, bleeding, discharge, and swelling, MS/Extremity: Negative for injury and deformity, Skin: Negative for injury, rash, and discoloration. 18:09 Neuro: Negative for headache, weakness, numbness, tingling, and seizure. 18:09 Respiratory: Positive for cough, shortness of breath. Exam: 18:09 Constitutional: This is a well developed, well nourished patient who is awake, alert, pm1 and in no acute distress. Head/Face: Normocephalic, atraumatic. ENT: Nares patent. No nasal discharge, no septal abnormalities noted. Tympanic membranes are normal and external auditory canals are clear. Oropharynx with no redness, swelling, or masses, exudates, or evidence of obstruction, uvula midline. Mucous membranes moist. Neck: Trachea midline, no thyromegaly or masses palpated, and no cervical lymphadenopathy. Supple, full range of motion without nuchal rigidity, or vertebral point tenderness. No Meningismus. Chest/axilla: Normal chest wall appearance and motion. Nontender with no deformity. No lesions are appreciated. 18:09 Respiratory: Lungs have equal breath sounds bilaterally, clear to auscultation and percussion. No rales, rhonchi or wheezes noted. No increased work of breathing, no retractions or nasal flaring. 18:09 Skin: Warm, dry with normal turgor. Normal color with no rashes, no lesions, and no evidence of cellulitis. MS/ Extremity: Pulses equal, no cyanosis. Neurovascular intact. Full, normal range of motion. 18:09 Cardiovascular: Rate: normal, Rhythm: regular, Pulses: no pulse deficits are appreciated, Edema: is not appreciated. 18:09 Back: kyphosis, that is marked. 18:09 Neuro: Orientation: is normal, Motor: is normal, moves all fours. Vital Signs: 18:06 BP 146 / 68; Pulse 72; Resp 22; Temp 97.6; Pulse Ox 85% on R/A; Weight 127.01 kg; sv Height 5 ft. 9 in. (175.26 cm); 18:45 BP 128 / 67; Pulse 68; Resp 22; Pulse Ox 96% on 2 lpm NC; sv 20:04 BP 134 / 62; Pulse 70; Resp 18 S; Temp 97.7(O); Pulse Ox 96% on 2 lpm NC; bb 18:06 Body Mass Index 41.35 (127.01 kg, 175.26 cm) sv 18:06 Pt placed on O2 \T\ 2L per NC, O2 sat up to 95%. sv MDM: 18:07 Patient medically screened. pm1 18:10 Refusal of service: The patient/guardian displays adequate decision making capability pm1 and despite a detailed discussion of alternatives, benefits, risks, and consequences refuses: all X-rays, blood work. Patient reports that she is here to test for flu because she, her , and son have the same symptoms of cough and congestion. 19:23 Data reviewed: vital signs. Data interpreted: Pulse oximetry: on 2L(s) per nasal pm1 canula, is 96 %. Interpretation: normal. 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 10/11 18:08 Order name: Strep; Complete Time: 18:44 pm1 10/11 18:08 Order name: Flu; Complete Time: 18:44 pm1 10/11 18:42 Order name: Throat Culture EDMS Administered Medications: 18:17 Drug: Albuterol - atroVENT (3:1) (2.5 mg - 0.5 mg) 3 ml Route: Nebulizer; sv 18:43 Follow up: Response: No adverse reaction sv 19:50 Drug: predniSONE 60 mg Route: PO; rb1 20:03 Follow up: Response: No adverse reaction bb 20:03 Not Given (Patient Refused): Rocephin (cefTRIAXone) 1 grams IM once bb Disposition: 10/12 07:05 Co-signature as Attending Physician, Jagdeep Foley MD. rn Disposition: 10/11/19 19:24 Discharged to Home. Impression: Acute upper respiratory infection, unspecified. - Condition is Stable. - Discharge Instructions: Upper Respiratory Infection, Adult. - Prescriptions for Zithromax Z- Rayshawn 250 mg Oral Tablet - take 1 tablet by ORAL route as directed for 5 days Day 1 - take two (2) tablets one time. Day 2, 3, 4 , 5 take one (1) tablet once daily.; 6 tablet. Medrol (Rayshawn) 4 mg Oral Tablets, Dose Pack - take 1 tablet by ORAL route as directed - follow package instructions; 1 packet. - Medication Reconciliation Form, Thank You Letter, Antibiotic Education, Prescription Opioid Use form. - Follow up: Emergency Department; When: As needed; Reason: Worsening of condition. Follow up: Tono Garcia MD; When: 2 - 3 days; Reason: Recheck today's complaints, Continuance of care, Re-evaluation by your physician. - Problem is new. - Symptoms have improved. Signatures: Dispatcher [employer] EDKellen Vogel RN RN Florencia Valencia RN RN bb Nieto, Roman, MD MD rn Barber, Rebecca, RN RN rb1 Zev Sy NP BUTT PRESSER pm1 Corrections: (The following items were deleted from the chart) 10/11 20:06 19:24 10/11/2019 19:24 Discharged to Home. Impression: Acute upper respiratory bb infection, unspecified. Condition is Stable. Forms are Medication Reconciliation Form, Thank You Letter, Antibiotic Education, Prescription Opioid Use. Follow up: Emergency Department; When: As needed; Reason: Worsening of condition. Follow up: Tono Garcia; When: 2 - 3 days; Reason: Recheck today's complaints, Continuance of care, Re-evaluation by your physician. Problem is new. Symptoms have improved. pm1
[2019-10-11] MEDS ORDERED: CEFTRIAXONE 1000 MG/VIAL ONE (19:49)
[2019-10-11] MEDS ORDERED: predniSONE 20 MG TAB ONE (19:50)
[2019-10-11 20:18] VITALS: O2SAT 96
[2019-10-11 20:20] VITALS: BP 134/62; TEMP 97.7
== END 2019-10-11 20:06 | disposition home or self-care (01) ==
LOC: ER 17:48
DX: J06.9 Acute upper respiratory infection, unspecified (principal); R05 Cough; I10 Essential (primary) hypertension; E11.9 Type 2 diabetes mellitus without complications; J44.9 Chronic obstructive pulmonary disease, unspecified; Z79.4 Long term (current) use of insulin; Z88.2 Allergy status to sulfonamides; Z88.5 Allergy status to narcotic agent; Z91.048 Other nonmedicinal substance allergy status
CPT/HCPCS: 87070; 87081; 87804; 94640; 99284; J7512

== ENCOUNTER 2019-10-16 18:05 | Emergency (ER) | payer OTHER ==
--- NOTE | 2019-10-16 19:14 | ER ---
Nurse's Notes [facility] Name: Sonia Bright Age: 74 yrs Sex: Female : 1945 Arrival Date: 10/16/2019 Time: 18:08 Bed Waiting Private MD: Leland Rdz Diagnosis: Presentation: 10/16 18:13 Presenting complaint: Patient states: "My oxygen is low and my pulse is fast and my aj1 heart is bothering me, its fluttering" Reports that she has been feeling this way since this afternoon she is not sure when. States that she has been having problems with her oxygen, she is waiting to get a portable machine for her home. Transition of care: patient was not received from another setting of care. Onset of symptoms was 2019. Risk Assessment: Do you want to hurt yourself or someone else? Patient reports no desire to harm self or others. Care prior to arrival: None. 18:13 Method Of Arrival: Wheelchair aj1 18:17 Initial Sepsis Screen: Does the patient meet any 2 criteria? No. Patient's initial aj1 sepsis screen is negative. Does the patient have a suspected source of infection? No. Patient's initial sepsis screen is negative. 18:17 Acuity: PAULINO 2 aj1 Triage Assessment: 18:16 General: Appears in no apparent distress. comfortable, Behavior is calm, cooperative, aj1 appropriate for age. Pain: Denies pain. Neuro: Level of Consciousness is awake, alert, obeys commands. Cardiovascular: Patient's skin is warm and dry. Respiratory: Reports shortness of breath Airway is patent Respiratory effort is even, unlabored, Respiratory pattern is regular, symmetrical, Onset: The symptoms/episode began/occurred today, the patient has mild shortness of breath. Historical: - Allergies: 18:16 Iodine; aj1 18:16 Lidocaine; aj1 18:16 Novocain; aj1 18:16 Sulfa (Sulfonamide Antibiotics); aj1 - Home Meds: 18:16 Advair Diskus Inhl [Active]; allopurinol 100 mg Oral tab 1 tab once daily [Active]; aj1 amlodipine 5 mg tab 1 tab once daily [Active]; atorvastatin 10 mg Oral tab 1 tab once daily [Active]; furosemide 80 mg Oral tab 1 tab once daily [Active]; Novolog 100 unit/mL Sub-Q soln [Active]; spironolactone 50 mg Oral tab 1 tab 2 times per day [Active]; Tresiba FlexTouch U-100 100 unit/mL (3 mL) subcutaneous inpn [Active]; - PMHx: 18:16 COPD; Diabetes - IDDM; Diabetes - NIDDM; EDEMA; Hypertension; hypoxia-normally 88-95%; aj1 kidney failure; Lupus; lymphedema; neck pain/crick; - Immunization history:: Adult Immunizations up to date. - Social history:: Smoking status: Patient/guardian denies using tobacco. - Ebola Screening: : Patient denies travel to an Ebola-affected area in the 21 days before illness onset. Assessment: 18:15 Reassessment: Patient placed on O2\\T\\2l per nc, O\\T\\ sat up to 94% on 2L. aj 1 19:12 Reassessment: Patient states that she is leaving, explained to patient that she will be aj1 getting the next room. Patient states that even if she gets a room right now she is leaving. States that she doesn't have time to be seen today and will come back tomorrow. Explained to patient that low O2 sat can be deadly, patient states that her O2 sat is always is in upper 80's and that 87% is normal for her, and she is leaving. Patient took off O2, and left with her family. Vital Signs: 18:17 BP 139 / 70; Pulse 82; Resp 20; Temp 97.1; Pulse Ox 87% on R/A; Weight 127.01 kg; aj1 Height 5 ft. 9 in. (175.26 cm) (R); 18:17 Body Mass Index 41.35 (127.01 kg, 175.26 cm) aj1 ED Course: 18:08 Patient arrived in ED. mr 18:08 Leland Rdz MD is Private Physician. mr 18:17 Triage completed. aj1 18:17 Arm band placed on. aj1 Administered Medications: No medications were administered Outcome: 19:14 Patient left the ED. aj1 Signatures: Jesusita Kendall RN RN aj1 Leanne Gonzalez mr Corrections: (The following items were deleted from the chart) 18:41 18:41 Reassessment: Patient placed on O2\\T\\2l per nc, O\\T\\ sat up to 94% on 2L aj1 aj 1
[2019-10-16 19:19] VITALS: BP 139/70; TEMP 97.1; O2SAT 87
--- NOTE | 2019-10-18 14:04 | EKG ---
Test Date: 2019-10-16 Test Time: 18:28:05 Glass Installer Technician: RIDDHI MEASUREMENT RESULTS: Intervals: Rate: 78 MD: 214 QRSD: 92 QT: 422 QTc: 481 Solomon: P: 42 MD: 214 QRS: -38 T: 47 INTERPRETIVE STATEMENTS: Sinus rhythm with 1st degree AV block Left axis deviation Possible Anterior infarct, age undetermined Abnormal ECG Compared to ECG 07/30/2019 17:19:47 Atrial premature complex(es) no longer present Myocardial infarct finding still present Electronically Signed On 10-18-19 13:59:40 ENGINEERING PRODUCTION LIAISON by Faustino De La Cruz
== END 2019-10-16 19:14 | disposition left against medical advice (07) ==
LOC: ER 18:05
DX: Z53.21 Procedure and treatment not carried out due to patient leaving prior to being seen by health care provider (principal)
CPT/HCPCS: 93005; 99281

== ENCOUNTER 2019-10-18 17:49 | Emergency (ER) | payer OTHER ==
[2019-10-18 19:36] LABS: Protime INR 1.1
[2019-10-18 19:53] LABS: ALT/SGPT 20 U/L (12-78); AST/SGOT 17 U/L (15-37); Alkaline Phosphatase 147 U/L (45-117); BUN Blood Urea Nitrogen 23 mg/dL (7-18); Bicarbonate 37 mmol/L (21-32); Bilirubin Direct 0.2 mg/dL (0-0.2); Bilirubin Total 0.8 mg/dL (0.2-1.0); Glucose Level 119 mg/dL (74-106); Magnesium 2.2 mg/dL (1.8-2.4); NT PRO-BNP 447 pg/mL (<125); Potassium 3.5 mmol/L (3.5-5.1); Protein, Total 7.4 g/dL (6.4-8.2); Sodium Level 142 mmol/L (136-145); Troponin (Emerg Dept Use Only) < 0.02 ng/mL (0.0-0.045)
--- NOTE | 2019-10-18 19:59 | RAD REPORT ---
EXAM DESCRIPTION: RAD - Chest Single View - 10/18/2019 7:45 pm CLINICAL HISTORY: Palpitations COMPARISON: April 2019 TECHNIQUE: AP portable chest image was obtained 1918 hours . FINDINGS: Lung volumes are low. Cardiomegaly and vascular engorgement noted. Interstitial pattern is prominent. Trachea is midline. No measurable pleural effusion and no pneumothorax. No acute bony abn ormality seen. No acute aortic findings suspected. IMPRESSION: Mild to moderate CHF/volume overload pattern.
[2019-10-18 20:05] LABS: Absolute Lymphocytes (CBC) 1.3 K/uL (0.7-4.9); Basophils % 0.7 % (0-1.3); MPV 8.6 fL (7.6-11.3); RBC Red Blood Cell Count 6.22 M/uL (3.86-4.86)
[2019-10-18] MEDS ORDERED: MUPIROCIN 2% OINT 22GM TUBE TOP ONE (21:25)
--- NOTE | 2019-10-18 21:30 | EDPHYS ---
Physician Documentation [facility] Name: Sonia Bright Age: 74 yrs Sex: Female : 1945 Arrival Date: 10/18/2019 Time: 17:51 Bed 7 Private MD: ED Physician Melina Ojeda HPI: 10/18 19:06 This 74 yrs old Female presents to ER via Wheelchair with complaints of Leg pm1 Infection, Palpitations. 19:06 The patient presents with a history of heart skipping beats. Context: The symptoms pm1 occur at rest. 19:06 Onset: The symptoms/episode began/occurred yesterday. Duration: The patient or guardian pm1 reports multiple episodes, that have now resolved. Modifying factors: The symptoms are aggravated by nothing. The symptoms are alleviated by nothing. Associated signs and symptoms: Pertinent negatives: chest pain, cough, fever, no increase in shortness of breath. Patient reports at her baseline SOB. Severity of symptoms: Pain is currently a 0 / 10. The patient has not recently seen a physician, has an appointment scheduled, With Dr. Garcia tomorrow. On my evaluation of the patient she stated that she came to the ER because she noticed that her blood pressure was elevated at home, but not it is better. She has also had some weeping from her left lower leg for the last three days. No fever. No chest pain. Baseline shortness of breath. Patient's complaints to me did not match triage complaint. Historical: - Allergies: 18:11 Iodine; iw 18:11 Lidocaine; iw 18:11 Novocain; iw 18:11 Sulfa (Sulfonamide Antibiotics); iw - Home Meds: 18:11 Advair Diskus Inhl [Active]; allopurinol 100 mg Oral tab 1 tab once daily [Active]; iw amlodipine 5 mg tab 1 tab once daily [Active]; atorvastatin 10 mg Oral tab 1 tab once daily [Active]; furosemide 80 mg Oral tab 1 tab once daily [Active]; Novolog 100 unit/mL Sub-Q soln [Active]; spironolactone 50 mg Oral tab 1 tab 2 times per day [Active]; Tresiba FlexTouch U-100 100 unit/mL (3 mL) subcutaneous inpn [Active]; - PMHx: 18:11 COPD; Diabetes - IDDM; Diabetes - NIDDM; EDEMA; Hypertension; hypoxia-normally 88-95%; iw kidney failure; Lupus; lymphedema; neck pain/crick; - Immunization history:: Adult Immunizations up to date. - Social history:: Smoking status: Patient denies any tobacco usage or history of. Smoking status: Patient/guardian denies using tobacco, but has a distant history of tobacco abuse. - Ebola Screening: : Patient negative for fever greater than or equal to 101.5 degrees Fahrenheit, and additional compatible Ebola Virus Disease symptoms Patient denies exposure to infectious person Patient denies travel to an Ebola-affected area in the 21 days before illness onset No symptoms or risks identified at this time. ROS: 19:06 Constitutional: Negative for fever, chills, and weight loss, Eyes: Negative for injury, pm1 pain, redness, and discharge, ENT: Negative for injury, pain, and discharge, Neck: Negative for injury, pain, and swelling. 19:06 Abdomen/GI: Negative for abdominal pain, nausea, vomiting, diarrhea, and constipation, Back: Negative for injury and pain, MS/Extremity: Negative for injury and deformity. 19:06 Neuro: Negative for headache, weakness, numbness, tingling, and seizure. 19:06 Cardiovascular: Positive for palpitations, Negative for chest pain. 19:06 Respiratory: Positive for baseline shortness of breath, Negative for cough, sputum production, wheezing. 19:06 Skin: Positive for weeping from left lower leg. Exam: 19:06 Constitutional: This is a well developed, well nourished patient who is awake, alert, pm1 and in no acute distress. Head/Face: Normocephalic, atraumatic. Neck: Trachea midline, no thyromegaly or masses palpated, and no cervical lymphadenopathy. Supple, full range of motion without nuchal rigidity, or vertebral point tenderness. No Meningismus. Chest/axilla: Normal chest wall appearance and motion. Nontender with no deformity. No lesions are appreciated. Cardiovascular: Regular rate and rhythm with a normal S1 and S2. No gallops, murmurs, or rubs. Normal PMI, no JVD. No pulse deficits. Respiratory: Lungs have equal breath sounds bilaterally, clear to auscultation and percussion. No rales, rhonchi or wheezes noted. No increased work of breathing, no retractions or nasal flaring. Back: No spinal tenderness. No costovertebral tenderness. Full range of motion. 19:06 Skin: Appearance: normal except for affected area, bilateral lower lymphedema. Left wilson with 4 cm diameter area of abraded skin with clear serous drainage. 19:06 Neuro: Orientation: is normal, Motor: is normal, moves all fours. Vital Signs: 18:11 BP 145 / 70; Pulse 73; Resp 20 S; Temp 97.6; Pulse Ox 87% on R/A; Weight 127.01 kg; iw Height 5 ft. 9 in. (175.26 cm); Pain 0/10; 19:00 BP 131 / 59; Pulse 69; Resp 20; Pulse Ox 93% on R/A; jb4 20:00 BP 142 / 70; Pulse 66; Resp 18; Pulse Ox 95% on R/A; jb4 21:00 BP 139 / 68; Pulse 66; Resp 18; Pulse Ox 95% on R/A; jb4 21:35 BP 147 / 62; Pulse 67; Resp 16; Pulse Ox 96% ; rv 18:11 Body Mass Index 41.35 (127.01 kg, 175.26 cm) iw MDM: 18:53 Patient medically screened. pm1 19:06 ED course: Patient's complaint to triage does not match the HPI that the patient gave pm1 me but I will order a cardiac workup to evaluate her complaint of palpitations. 21:21 Data reviewed: vital signs. Data interpreted: Pulse oximetry: on room air is 95 %. pm1 Interpretation: normal. Counseling: I had a detailed discussion with the patient and/or guardian regarding: the historical points, exam findings, and any diagnostic results supporting the discharge/admit diagnosis, lab results, radiology results, the need for outpatient follow up, to return to the emergency department if symptoms worsen or persist or if there are any questions or concerns that arise at home. 21:33 ED course: Patient without change in shortness of breath from her baseline. x-ray shows pm1 mild CHF. Patient currently taking Lasix 80 mg PO. patient Cr within normal limits. Will give patient extra dosage of Lasix in ER, but will without recommending increasing her daily dosage since she is not having any increased shortness of breath. 10/18 19:05 Order name: Basic Metabolic Panel; Complete Time: 19:59 pm1 01/19 19:05 Order name: CBC with Diff; Complete Time: 21:19 pm10/18 19:05 Order name: LFT's; Complete Time: 19:59 pm1 10/18 19:05 Order name: Magnesium; Complete Time: 19:59 pm10/18 19:05 Order name: NT PRO-BNP; Complete Time: 19:59 pm1 10/18 19:05 Order name: PT-INR; Complete Time: 19:49 pm10/18 19:05 Order name: Troponin (emerg Dept Use Only); Complete Time: 19:59 pm1 10/18 19:05 Order name: XRAY Chest (1 view); Complete Time: 21:19 pm10/18 19:05 Order name: EKG; Complete Time: 19:06 pm10/18 19:05 Order name: Cardiac monitoring; Complete Time: 19:43 pm1 10/18 19:05 Order name: EKG - Nurse/Tech; Complete Time: 19:43 pm10/18 19:05 Order name: IV Saline Lock; Complete Time: 19:43 pm10/18 19:05 Order name: Labs collected and sent; Complete Time: 19:44 pm10/18 19:05 Order name: O2 Per Protocol; Complete Time: 19:44 pm10/18 19:05 Order name: O2 Sat Monitoring; Complete Time: 19:44 pm1 Administered Medications: 21:32 Drug: Bactroban Ointment 2 % 1 application Route: Topical; Site: affected area; jb4 21:33 Follow up: Response: Medication administered at discharge. jb4 21:33 Drug: LaSIX 40 mg Route: PO; jb4 21:33 Follow up: Response: Medication administered at discharge. jb4 21:33 Drug: Rocephin 1 grams Route: IV; Rate: calculated rate; Site: right antecubital; jb4 21:33 Follow up: IV Status: Completed infusion jb4 Disposition: 10/19 15:53 Co-signature as Attending Physician, Mleina Ojeda MD. Chart complete. ma2 Disposition: 10/18/19 21:29 Discharged to Home. Impression: Palpitations, Cellulitis of left lower limb. - Condition is Stable. - Discharge Instructions: Cellulitis, Adult, Palpitations, Lymphedema. - Prescriptions for Cephalexin 500 mg Oral Capsule - take 1 capsule by ORAL route every 6 hours for 10 days; 40 capsule. Bactroban 2 % Topical Ointment - Apply to affected area 1 application by TOPICAL route every 12 hours; 60 gram. - Medication Reconciliation Form, Thank You Letter, Antibiotic Education, Prescription Opioid Use form. - Follow up: Emergency Department; When: As needed; Reason: Worsening of condition. Follow up: Private Physician; When: 2 - 3 days; Reason: Recheck today's complaints, Continuance of care, Re-evaluation by your physician. - Problem is new. - Symptoms have improved. Signatures: Dispatcher [employer] EDMS Marti Faye, RN RN iw Zev Sy NP GM [employer]LE pm1 Louis Rock RN RN jb4 Melina Ojeda MD MD ma2 Alexx Castillo RN RN rv Corrections: (The following items were deleted from the chart) 10/18 21:36 21:29 10/18/2019 21:29 Discharged to Home. Impression: Palpitations; Cellulitis of left rv lower limb. Condition is Stable. Forms are Medication Reconciliation Form, Thank You Letter, Antibiotic Education, Prescription Opioid Use. Follow up: Emergency Department; When: As needed; Reason: Worsening of condition. Follow up: Private Physician; When: 2 - 3 days; Reason: Recheck today's complaints, Continuance of care, Re-evaluation by your physician. Problem is new. Symptoms have improved. pm1 22:25 19:06 The patient presents with a history of heart racing, pm1 pm1
--- NOTE | 2019-10-18 21:30 | ER ---
Nurse's Notes [facility] Name: Sonia Bright Age: 74 yrs Sex: Female : 1945 Arrival Date: 10/18/2019 Time: 17:51 Bed 7 Private MD: Diagnosis: Palpitations;Cellulitis of left lower limb Presentation: 10/18 18:09 Presenting complaint: Patient states: was seen here yesterday for low oxygen and heart iw felt like it was skipping beats, pt did not want to stay past triage , pt still having similar symptoms., always feels SOB, palpitations started at 5 today , also has weeping to left leg, hx of lymphedema. Transition of care: patient was not received from another setting of care. Onset of symptoms was October 17, 2019. Risk Assessment: Do you want to hurt yourself or someone else? Patient reports no desire to harm self or others. Initial Sepsis Screen: Does the patient meet any 2 criteria? No. Patient's initial sepsis screen is negative. Does the patient have a suspected source of infection? No. Patient's initial sepsis screen is negative. Care prior to arrival: None. 18:09 Method Of Arrival: Wheelchair iw 18:09 Acuity: PAULINO 2 iw Historical: - Allergies: 18:11 Iodine; iw 18:11 Lidocaine; iw 18:11 Novocain; iw 18:11 Sulfa (Sulfonamide Antibiotics); iw - Home Meds: 18:11 Advair Diskus Inhl [Active]; allopurinol 100 mg Oral tab 1 tab once daily [Active]; iw amlodipine 5 mg tab 1 tab once daily [Active]; atorvastatin 10 mg Oral tab 1 tab once daily [Active]; furosemide 80 mg Oral tab 1 tab once daily [Active]; Novolog 100 unit/mL Sub-Q soln [Active]; spironolactone 50 mg Oral tab 1 tab 2 times per day [Active]; Tresiba FlexTouch U-100 100 unit/mL (3 mL) subcutaneous inpn [Active]; - PMHx: 18:11 COPD; Diabetes - IDDM; Diabetes - NIDDM; EDEMA; Hypertension; hypoxia-normally 88-95%; iw kidney failure; Lupus; lymphedema; neck pain/crick; - Immunization history:: Adult Immunizations up to date. - Social history:: Smoking status: Patient denies any tobacco usage or history of. Smoking status: Patient/guardian denies using tobacco, but has a distant history of tobacco abuse. - Ebola Screening: : Patient negative for fever greater than or equal to 101.5 degrees Fahrenheit, and additional compatible Ebola Virus Disease symptoms Patient denies exposure to infectious person Patient denies travel to an Ebola-affected area in the 21 days before illness onset No symptoms or risks identified at this time. Screenin:30 Abuse screen: Denies threats or abuse. Denies injuries from another. Nutritional hb screening: No deficits noted. Tuberculosis screening: No symptoms or risk factors identified. Fall Risk None identified. Assessment: 18:30 General: Appears in no apparent distress. Behavior is calm, cooperative. Pain: Denies hb pain. Neuro: Level of Consciousness is awake, alert, obeys commands, Oriented to person, place, time, situation. Cardiovascular: Heart tones S1 S2 present Capillary refill < 3 seconds. Respiratory: Airway is patent Respiratory effort is even, unlabored, Respiratory pattern is regular, symmetrical, Breath sounds are diminished bilaterally. GI: No signs and/or symptoms were reported involving the gastrointestinal system. : No signs and/or symptoms were reported regarding the genitourinary system. EENT: No signs and/or symptoms were reported regarding the EENT system. Derm: BLE edema, dressing in place. Musculoskeletal: No signs and/or symptoms reported regarding the musculoskeletal system. 19:15 Reassessment: Patient appears in no apparent distress at this time. Patient and/or jb4 family updated on plan of care and expected duration. Pain level reassessed. Patient is alert, oriented x 3, equal unlabored respirations, skin warm/dry/pink. 20:15 Reassessment: Patient appears in no apparent distress at this time. Patient and/or jb4 family updated on plan of care and expected duration. Pain level reassessed. Patient is alert, oriented x 3, equal unlabored respirations, skin warm/dry/pink. 21:04 Reassessment: Patient appears in no apparent distress at this time. Patient and/or jb4 family updated on plan of care and expected duration. Pain level reassessed. Patient is alert, oriented x 3, equal unlabored respirations, skin warm/dry/pink. Vital Signs: 18:11 BP 145 / 70; Pulse 73; Resp 20 S; Temp 97.6; Pulse Ox 87% on R/A; Weight 127.01 kg; iw Height 5 ft. 9 in. (175.26 cm); Pain 0/10; 19:00 BP 131 / 59; Pulse 69; Resp 20; Pulse Ox 93% on R/A; jb4 20:00 BP 142 / 70; Pulse 66; Resp 18; Pulse Ox 95% on R/A; jb4 21:00 BP 139 / 68; Pulse 66; Resp 18; Pulse Ox 95% on R/A; jb4 21:35 BP 147 / 62; Pulse 67; Resp 16; Pulse Ox 96% ; rv 18:11 Body Mass Index 41.35 (127.01 kg, 175.26 cm) iw ED Course: 17:51 Patient arrived in ED. rg4 18:11 Triage completed. iw 18:11 Arm band placed on. iw 18:30 Ryann Chanel, RN is Primary Nurse. hb 18:30 Patient has correct armband on for positive identification. Call light in reach. hb 18:53 Zev Sy NP is PHCP. pm1 18:53 Melina Ojeda MD is Attending Physician. pm1 19:23 Inserted saline lock: 20 gauge in right antecubital area, using aseptic technique. oe Blood collected. 19:45 XRAY Chest (1 view) In Process Unspecified. EDMS 21:35 No provider procedures requiring assistance completed. IV discontinued, intact, rv bleeding controlled, No redness/swelling at site. Pressure dressing applied. Wound care: to CELLULITIS located on right leg and left leg was dressed with 4X4s, BACTROBAN. Administered Medications: 21:32 Drug: Bactroban Ointment 2 % 1 application Route: Topical; Site: affected area; jb4 21:33 Follow up: Response: Medication administered at discharge. jb4 21:33 Drug: LaSIX 40 mg Route: PO; jb4 21:33 Follow up: Response: Medication administered at discharge. jb4 21:33 Drug: Rocephin 1 grams Route: IV; Rate: calculated rate; Site: right antecubital; jb4 21:33 Follow up: IV Status: Completed infusion jb4 Outcome: 21:29 Discharge ordered by . pm1 21:36 Discharged to home via wheelchair, with family. rv 21:36 Condition: good 21:36 Discharge instructions given to patient, family, Instructed on discharge instructions, follow up and referral plans. medication usage, Demonstrated understanding of instructions, follow-up care, medications, Prescriptions given X 2. 21:36 Patient left the ED. rv Signatures: Dispatcher [employer] Marti Peters, RN RN iw Zev Sy, [employer]ETER pm1 Ryann Chanel, RN RN Kristin Sawyer 4 Louis Rock RN RN jb4 [employer] Freeman Ronaldo RN RN rv Corrections: (The following items were deleted from the chart) 18:14 18:09 Presenting complaint: Patient states: was seen here yesterday for low oxygen and iw heart felt like it was skipping beats, pt did not want to stay past triage , pt still having similar symptoms., always feels SOB, palpitations started at 5 today iw
[2019-10-18] MEDS ORDERED: CEFTRIAXONE/SWI 1gm 1 GM/10 ML SYR ONE (21:31)
[2019-10-18] MEDS ORDERED: FUROSEMIDE 40 MG TABLET ONE (21:31)
[2019-10-18 22:42] VITALS: TEMP 97.6
[2019-10-18 22:48] VITALS: BP 147/62; O2SAT 96
--- NOTE | 2019-10-19 14:54 | EKG ---
Test Date: 2019-10-18 Test Time: 18:24:39 Scada Operator: RIDDHI MEASUREMENT RESULTS: Intervals: Rate: 74 GA: 200 QRSD: 92 QT: 426 QTc: 472 Wendell: P: 78 GA: 200 QRS: -38 T: 58 INTERPRETIVE STATEMENTS: Normal sinus rhythm Left axis deviation Possible Anterior infarct, age undetermined Abnormal ECG Compared to ECG 10/16/2019 18:28:05 First degree AV block no longer present Myocardial infarct finding still present Electronically Signed On 10-19-19 14:52:03 INTAKE RN by Ortiz Gonsalves
== END 2019-10-18 21:36 | disposition home or self-care (01) ==
LOC: ER 17:49
DX: R00.2 Palpitations (principal); L03.116 Cellulitis of left lower limb; Z91.09 Other allergy status, other than to drugs and biological substances; Z88.2 Allergy status to sulfonamides; Z88.6 Allergy status to analgesic agent; J44.9 Chronic obstructive pulmonary disease, unspecified; E11.9 Type 2 diabetes mellitus without complications; I10 Essential (primary) hypertension; N19 Unspecified kidney failure
CPT/HCPCS: 93005; 85025; 80048; 36415; 83735; 85610; 80076; 84484; 83880; 71045; 96374; 99284; J0696

== ENCOUNTER 2019-10-26 14:09 | Inpatient (IN) | payer OTHER ==
--- NOTE | 2019-10-26 15:59 | ER ---
Nurse's Notes [facility] Name: Sonia Bright Age: 74 yrs Sex: Female : 1945 Arrival Date: 10/26/2019 Time: 14:11 Bed 5 Private MD: Leland Rdz Diagnosis: Cellulitis and acute lymphangitis of other parts of limb;Edema, unspecified;Type 2 diabetes mellitus;Obesity, unspecified;Unspecified kidney failure;Unspecified combined systolic (congestive) and diastolic (congestive) heart failure Presentation: 10/26 15:05 Presenting complaint: Patient states: BLE swelling and weeping, was seen here recently iw and given an ointment for her legs but the swelling and redness is getting worse. Transition of care: patient was not received from another setting of care. Onset of symptoms was October 26, 2019. Risk Assessment: Do you want to hurt yourself or someone else? Patient reports no desire to harm self or others. Initial Sepsis Screen: Does the patient meet any 2 criteria? No. Patient's initial sepsis screen is negative. Does the patient have a suspected source of infection? No. Patient's initial sepsis screen is negative. Care prior to arrival: None. 15:05 Method Of Arrival: Wheelchair iw 15:05 Acuity: PAULINO 3 iw Triage Assessment: 15:15 General: Appears in no apparent distress. comfortable, Behavior is cooperative, bp appropriate for age, anxious. Pain: Complains of pain in right leg and left leg. EENT: No deficits noted. Neuro: No deficits noted. Cardiovascular: No deficits noted. Respiratory: No deficits noted. GI: No signs and/or symptoms were reported involving the gastrointestinal system. : No signs and/or symptoms were reported regarding the genitourinary system. Derm: No signs and/or symptoms reported regarding the dermatologic system. Musculoskeletal: Swelling present in right leg and left leg. Historical: - Allergies: 15:14 Iodine; iw 15:14 Lidocaine; iw 15:14 Novocain; iw 15:14 Sulfa (Sulfonamide Antibiotics); iw - Home Meds: 15:14 Advair Diskus Inhl [Active]; allopurinol 100 mg Oral tab 1 tab once daily [Active]; iw amlodipine 5 mg tab 1 tab once daily [Active]; atorvastatin 10 mg Oral tab 1 tab once daily [Active]; furosemide 80 mg Oral tab 1 tab once daily [Active]; Novolog 100 unit/mL Sub-Q soln [Active]; spironolactone 50 mg Oral tab 1 tab 2 times per day [Active]; Tresiba FlexTouch U-100 100 unit/mL (3 mL) subcutaneous inpn [Active]; - PMHx: 15:14 COPD; Diabetes - IDDM; Diabetes - NIDDM; EDEMA; Hypertension; hypoxia-normally 88-95%; iw kidney failure; Lupus; lymphedema; neck pain/crick; - Immunization history:: Adult Immunizations up to date. - Coronavirus screen:: The patient has NOT traveled to [place], [place], or [place] in the past 14 days. Proceed with normal triage process as indicated. - Social history:: Smoking status: Patient/guardian denies using tobacco, but has a distant history of tobacco abuse. - Ebola Screening: : Patient negative for fever greater than or equal to 101.5 degrees Fahrenheit, and additional compatible Ebola Virus Disease symptoms Patient denies exposure to infectious person Patient denies travel to an Ebola-affected area in the 21 days before illness onset No symptoms or risks identified at this time. Screenin:45 Abuse screen: Denies threats or abuse. Denies injuries from another. Nutritional bp screening: No deficits noted. Tuberculosis screening: No symptoms or risk factors identified. Fall Risk None identified. Assessment: 15:15 General: SEE TRIAGE NOTE. bp 17:19 Reassessment: ADMIT IN PROCESS. GOMEZ PLACED 2/2 PT DECREASED MOBILITY AND LASIX bp ADMINISTRATION. Vital Signs: 15:14 BP 138 / 70; Pulse 86; Resp 22 S; Temp 98.6; Pulse Ox 86% on R/A; Weight 127.01 kg; iw Height 5 ft. 9 in. (175.26 cm); Pain 10/10; 17:19 BP 93 / 73; Pulse 85; Resp 19; Pulse Ox 94% ; bp 18:12 BP 134 / 82; Pulse 75; Resp 22; Pulse Ox 92% ; bp 15:14 Body Mass Index 41.35 (127.01 kg, 175.26 cm) iw ED Course: 14:11 Patient arrived in ED. mr 14:11 Leland Rdz MD is Private Physician. mr 14:45 Diaz Garcia MD is Attending Physician. domingo 14:46 Arsen Sal, RN is Primary Nurse. bp 15:12 Triage completed. iw 15:14 Arm band placed on. iw 15:45 Patient has correct armband on for positive identification. Bed in low position. Call bp light in reach. Side rails up X2. Adult w/ patient. 15:57 Naresh Villatoro MD is Hospitalizing Provider. domingo 16:10 Inserted saline lock: 22 gauge in right antecubital area, using aseptic technique. bp Blood collected. 16:26 US Extremity Venous W Compression Burak In Process Unspecified. EDHI 17:09 Gomez cath inserted, using sterile technique, 16 Fr., by ut, balloon inflated, to aa5 gravity drainage, Patient tolerated well. 17:31 cardiac monitor on. Pulse ox on. NIBP on. 5 17:31 Urine collected: clean catch specimen, clear. 5 18:13 No provider procedures requiring assistance completed. Patient admitted, IV remains in bp place. Administered Medications: 16:10 Drug: Xopenex 2.5 mg Route: Inhalation; bp 16:10 Drug: AtroVENT Aerosol 0.5 mg Route: Inhalation; bp 16:30 Drug: Zosyn 3.375 grams Route: IVPB; Infused Over: 60 mins; Site: right antecubital; bp 17:28 Follow up: IV Status: Completed infusion; IV Intake: 100ml bp 17:15 Drug: Lasix 60 mg Route: IVP; Site: right antecubital; bp 17:55 Follow up: Response: No adverse reaction bp 17:28 Drug: vancoMYCIN 1 grams Route: IVPB; Infused Over: 2 hrs; Site: right antecubital; bp 18:13 Follow up: IV Status: Infusion continued upon admission bp Intake: 17:28 IV: 100ml; Total: 100ml. bp Outcome: 15:58 Decision to Hospitalize by Provider. domingo 18:12 Admitted to Med/surg accompanied by tech, family with patient, via stretcher, room 410, bp with chart, Report called to ARY BUSTAMANTE 18:12 Condition: stable 18:12 Instructed on the need for admit. 18:42 Patient left the ED. bp Signatures: Dispatcher [employer] EDMS Diaz Garcia MD MD cha Rivera, Marti Ritchie RN RN Marquita Spence RN RN [facility] Denita Bethea mh5 Doron, Arsen, RN RN bp
--- NOTE | 2019-10-26 15:59 | EDPHYS ---
Physician Documentation [facility] Name: Sonia Bright Age: 74 yrs Sex: Female : 1945 Arrival Date: 10/26/2019 Time: 14:11 Bed 5 Private MD: Leland Rdz ED Physician Diaz Garcia HPI: 10/26 15:54 This 74 yrs old Female presents to ER via Wheelchair with complaints of Leg domingo Swelling. 15:54 The patient presents with decreased range of motion, pain, swelling, tenderness. The domingo complaints affect the right leg and left leg. Context: resulted from an unknown cause. Onset: The symptoms/episode began/occurred 2 day(s) ago. Modifying factors: The symptoms are alleviated by nothing. elevating leg, the symptoms are aggravated by movement, weight bearing. Associated signs and symptoms: The patient has no apparent associated signs or symptoms. The patient has shortness of breath at rest. The patient's shortness of breath is aggravated by light activity, is alleviated by elevating head, nebulizer treatment, pursed lip breathing, application of supplemental oxygen. Historical: - Allergies: 15:14 Iodine; iw 15:14 Lidocaine; iw 15:14 Novocain; iw 15:14 Sulfa (Sulfonamide Antibiotics); iw - Home Meds: 15:14 Advair Diskus Inhl [Active]; allopurinol 100 mg Oral tab 1 tab once daily [Active]; iw amlodipine 5 mg tab 1 tab once daily [Active]; atorvastatin 10 mg Oral tab 1 tab once daily [Active]; furosemide 80 mg Oral tab 1 tab once daily [Active]; Novolog 100 unit/mL Sub-Q soln [Active]; spironolactone 50 mg Oral tab 1 tab 2 times per day [Active]; Tresiba FlexTouch U-100 100 unit/mL (3 mL) subcutaneous inpn [Active]; - PMHx: 15:14 COPD; Diabetes - IDDM; Diabetes - NIDDM; EDEMA; Hypertension; hypoxia-normally 88-95%; iw kidney failure; Lupus; lymphedema; neck pain/crick; - Immunization history:: Adult Immunizations up to date. - Coronavirus screen:: The patient has NOT traveled to [place], [place], or [place] in the past 14 days. Proceed with normal triage process as indicated. - Social history:: Smoking status: Patient/guardian denies using tobacco, but has a distant history of tobacco abuse. - Ebola Screening: : Patient negative for fever greater than or equal to 101.5 degrees Fahrenheit, and additional compatible Ebola Virus Disease symptoms Patient denies exposure to infectious person Patient denies travel to an Ebola-affected area in the 21 days before illness onset No symptoms or risks identified at this time. ROS: 15:55 Constitutional: Negative for fever, chills, and weight loss, Eyes: Negative for injury, domingo pain, redness, and discharge, ENT: Negative for injury, pain, and discharge, Neck: Negative for injury, pain, and swelling, Cardiovascular: Negative for chest pain, palpitations, and edema, Abdomen/GI: Negative for abdominal pain, nausea, vomiting, diarrhea, and constipation, Back: Negative for injury and pain, : Negative for injury, bleeding, discharge, and swelling, Neuro: Negative for headache, weakness, numbness, tingling, and seizure, Psych: Negative for depression, anxiety, suicide ideation, homicidal ideation, and hallucinations, Allergy/Immunology: Negative for hives, rash, and allergies, Endocrine: Negative for neck swelling, polydipsia, polyuria, polyphagia, and marked weight changes, Hematologic/Lymphatic: Negative for swollen nodes, abnormal bleeding, and unusual bruising. 15:55 Skin: Positive for erythema, swelling, of the right leg and left leg. Exam: 15:55 Constitutional: This is a well developed, well nourished patient who is awake, alert, domingo and in no acute distress. Head/Face: Normocephalic, atraumatic. Eyes: Pupils equal round and reactive to light, extra-ocular motions intact. Lids and lashes normal. Conjunctiva and sclera are non-icteric and not injected. Cornea within normal limits. Periorbital areas with no swelling, redness, or edema. ENT: Nares patent. No nasal discharge, no septal abnormalities noted. Tympanic membranes are normal and external auditory canals are clear. Oropharynx with no redness, swelling, or masses, exudates, or evidence of obstruction, uvula midline. Mucous membranes moist. Neck: Trachea midline, no thyromegaly or masses palpated, and no cervical lymphadenopathy. Supple, full range of motion without nuchal rigidity, or vertebral point tenderness. No Meningismus. Chest/axilla: Normal chest wall appearance and motion. Nontender with no deformity. No lesions are appreciated. Cardiovascular: Regular rate and rhythm with a normal S1 and S2. No gallops, murmurs, or rubs. Normal PMI, no JVD. No pulse deficits. Abdomen/GI: Soft, non-tender, with normal bowel sounds. No distension or tympany. No guarding or rebound. No evidence of tenderness throughout. Back: No spinal tenderness. No costovertebral tenderness. Full range of motion. Female : Normal external genitalia. MS/ Extremity: Pulses equal, no cyanosis. Neurovascular intact. Full, normal range of motion. Neuro: Awake and alert, GCS 15, oriented to person, place, time, and situation. Cranial nerves II-XII grossly intact. Motor strength 5/5 in all extremities. Sensory grossly intact. Cerebellar exam normal. Normal gait. Psych: Awake, alert, with orientation to person, place and time. Behavior, mood, and affect are within normal limits. 15:55 Respiratory: mild respiratory distress is noted, Respirations: labored breathing, that is mild, Breath sounds: rhonchi, wheezing: expiratory Respiratory rate: 22 Vital Signs: 15:14 BP 138 / 70; Pulse 86; Resp 22 S; Temp 98.6; Pulse Ox 86% on R/A; Weight 127.01 kg; iw Height 5 ft. 9 in. (175.26 cm); Pain 10/10; 17:19 BP 93 / 73; Pulse 85; Resp 19; Pulse Ox 94% ; bp 18:12 BP 134 / 82; Pulse 75; Resp 22; Pulse Ox 92% ; bp 15:14 Body Mass Index 41.35 (127.01 kg, 175.26 cm) iw MDM: 14:45 Patient medically screened. [facility] 15:56 Data reviewed: vital signs, nurses notes, lab test result(s), EKG, radiologic studies, domingo doppler, plain films. 10/26 15:49 Order name: Basic Metabolic Panel; Complete Time: 17:52 [facility] 10/26 15:49 Order name: CBC with Diff; Complete Time: 17:52 [facility] 10/26 15:49 Order name: LFT's; Complete Time: 17:52 [facility] 10/26 15:49 Order name: Magnesium; Complete Time: 17:52 [facility] 10/26 15:49 Order name: NT PRO-BNP; Complete Time: 17:52 [facility] 10/26 15:49 Order name: PT-INR; Complete Time: 17:52 [facility] 10/26 15:49 Order name: Troponin (emerg Dept Use Only); Complete Time: 17:52 [facility] 10/26 15:49 Order name: XRAY Chest (1 view) [facility] 10/26 15:49 Order name: Urine Culture [facility] 10/26 15:49 Order name: Blood Culture Adult (2) [facility] 10/26 15:49 Order name: US Extremity Venous W Compression Burak; Complete Time: 17:52 [facility] 10/26 17:20 Order name: Urine Dipstick--Ancillary (enter results) 10/26 17:53 Order name: ABG [facility] 10/26 18:37 Order name: ABG Arterial Blood Gas EDPR 10/26 15:49 Order name: EKG; Complete Time: 15:50 [facility] 10/26 15:49 Order name: Cardiac monitoring; Complete Time: 15:53 [facility] 10/26 15:49 Order name: O2 Per Protocol; Complete Time: 15:52 [facility] 10/26 15:49 Order name: O2 Sat Monitoring; Complete Time: 15:50 [facility] 10/26 16:42 Order name: RAD; Complete Time: 17:52 [facility] 10/26 17:53 Order name: BIPAP [facility] 10/26 17:21 Order name: Santamaria: VO received at 1700; Complete Time: 17:22 aa5 Administered Medications: 16:10 Drug: Xopenex 2.5 mg Route: Inhalation; bp 16:10 Drug: AtroVENT Aerosol 0.5 mg Route: Inhalation; bp 16:30 Drug: Zosyn 3.375 grams Route: IVPB; Infused Over: 60 mins; Site: right antecubital; bp 17:28 Follow up: IV Status: Completed infusion; IV Intake: 100ml bp 17:15 Drug: Lasix 60 mg Route: IVP; Site: right antecubital; bp 17:55 Follow up: Response: No adverse reaction bp 17:28 Drug: vancoMYCIN 1 grams Route: IVPB; Infused Over: 2 hrs; Site: right antecubital; bp 18:13 Follow up: IV Status: Infusion continued upon admission bp Disposition: 10/26/19 15:58 Hospitalization ordered by Naresh Villatoro for Inpatient Admission. Preliminary diagnosis are Cellulitis and acute lymphangitis of other parts of limb, Edema, unspecified, Type 2 diabetes mellitus, Obesity, unspecified, Unspecified kidney failure, Unspecified combined systolic (congestive) and diastolic (congestive) heart failure. - Bed requested for Telemetry/MedSurg (Inpatient). - Status is Inpatient Admission. bp - Condition is Fair. - Problem is new. - Symptoms are unchanged. UTI on Admission? No Signatures: Dispatcher [employer] EDMS Ana Luisa Dayna Diaz Rosenberg MD MD cha Williams, Irene, RN RN iw Marquita Spence RN RN aa5 Arsen Sal RN RN bp Corrections: (The following items were deleted from the chart) 17:18 15:58 Hospitalization Ordered by Naresh Villatoro MD for Inpatient Admission. Preliminary bd diagnosis is Cellulitis and acute lymphangitis of other parts of limb; Edema, unspecified; Type 2 diabetes mellitus. Bed requested for Telemetry/MedSurg (Inpatient). Status is Inpatient Admission. Condition is Fair. Problem is new. Symptoms are unchanged. UTI on Admission? No. domingo 17:55 17:18 10/26/2019 15:58 Hospitalization Ordered by Naresh Villatoro MD for Inpatient domingo Admission. Preliminary diagnosis is Cellulitis and acute lymphangitis of other parts of limb; Edema, unspecified; Type 2 diabetes mellitus. Bed requested for Telemetry/MedSurg (Inpatient). Status is Inpatient Admission. Condition is Fair. Problem is new. Symptoms are unchanged. UTI on Admission? No. bd 18:42 17:55 10/26/2019 15:58 Hospitalization Ordered by Naresh Villatoro MD for Inpatient bp Admission. Preliminary diagnosis is Cellulitis and acute lymphangitis of other parts of limb; Edema, unspecified; Type 2 diabetes mellitus; Obesity, unspecified; Unspecified kidney failure; Unspecified combined systolic (congestive) and diastolic (congestive) heart failure. Bed requested for Telemetry/MedSurg (Inpatient). Status is Inpatient Admission. Condition is Fair. Problem is new. Symptoms are unchanged. UTI on Admission? No. domingo
[2019-10-26] MEDS ORDERED: IPRATROPIUM BROM 0.5MG/2.5ML ONE (16:30)
[2019-10-26] MEDS ORDERED: LEVALBUTEROL 1.25 MG/3 ML NEB ONE (16:30)
[2019-10-26] MEDS ORDERED: PIPER/TAZO/NS 3.375gm 3.375 GM/100 ML BAG ONE (16:30)
[2019-10-26] MEDS ORDERED: VANCOMYCIN/NS 1 gm 1 GM/250 ML BAG IV ONE (16:30)
[2019-10-26 16:36] LABS: Protime INR 1.14
--- NOTE | 2019-10-26 16:37 | RAD REPORT ---
EXAM DESCRIPTION: RAD - Chest Single View - 10/26/2019 4:31 pm CLINICAL HISTORY: Abdominal distention;Dyspnea Chest pain. COMPARISON: Chest Single View dated 10/18/2019; Chest Single View dated 05/16/2019; Chest Pa And Lat ( 2 Views) dated 01/10/2018; Chest Pa And Lat (2 Views) dated 12/07/2017 FINDINGS: Portable technique limits examination quality. Mild pulmonary edema is seen. The heart is moderately enlarged in size. No displaced fractures. IMPRESSION: Mild CHF versus volume overload pattern.
--- NOTE | 2019-10-26 16:54 | RAD REPORT ---
EXAM DESCRIPTION: US - Extrem Venous W Compress Burak - 10/26/2019 4:38 pm CLINICAL HISTORY: Pain;Swelling Bilateral leg edema and swelling. COMPARISON: EXT VENOUS UNI LTD dated 01/17/2011 TECHNIQUE: Real-time sonographic interrogation of the left and right lower extremity deep venous sys tems was performed. FINDINGS: Normal compressibility, flow augmentation, phasic flow and spontaneous flow is identified in both the left and right lower extremity deep venous systems. IMPRESSION: No sonographic evidence of left or right lower extremity deep venous thrombosis.
[2019-10-26 16:55] LABS: ALT/SGPT 20 U/L (12-78); AST/SGOT 18 U/L (15-37); Albumin 2.7 g/dL (3.4-5.0); Alkaline Phosphatase 136 U/L (45-117); BUN Blood Urea Nitrogen 22 mg/dL (7-18); Bicarbonate 36 mmol/L (21-32); Bilirubin Direct 0.2 mg/dL (0-0.2); Bilirubin Total 0.6 mg/dL (0.2-1.0); Glucose Level 163 mg/dL (74-106); Magnesium 2.2 mg/dL (1.8-2.4); NT PRO-BNP 642 pg/mL (<125); Potassium 3.2 mmol/L (3.5-5.1); Protein, Total 7.1 g/dL (6.4-8.2); Sodium Level 142 mmol/L (136-145); Troponin (Emerg Dept Use Only) < 0.02 ng/mL (0.0-0.045)
[2019-10-26 17:02] LABS: Absolute Lymphocytes (CBC) 1.3 K/uL (0.7-4.9); Basophils % 0.5 % (0-1.3); Hematocrit 47.3 % (36.0-45.0); Lymphocytes % 13.3 % (15.3-44.8); MPV 8.8 fL (7.6-11.3); RBC Red Blood Cell Count 5.96 M/uL (3.86-4.86)
[2019-10-26] MEDS ORDERED: FUROSEMIDE 100 MG/10 ML VIAL IV ONE (17:45)
[2019-10-26 18:18] LABS: Arterial Blood Carboxyhemoglob 1.8 % (0-1.5); Blood Gas Oxyhemoglobin 88.9 % (94-97); Blood O2 Saturation 91.2 % (92-98.5)
[2019-10-26] MEDS ORDERED: D50W 25 GM/50 ML SYRINGE/VIAL IV PRN (18:41)
[2019-10-26] MEDS ORDERED: VANCOMYCIN/NS 1 gm 1 GM/250 ML BAG IVPB ONE (18:41)
[2019-10-26] MEDS ORDERED: ONDANSETRON 4 MG/2 ML VIAL IV PRN (18:41)
[2019-10-26] MEDS ORDERED: ACETAMINOPHEN 500 MG TAB PO PRN (18:41)
[2019-10-26] MEDS ORDERED: GLUCAGON 1 MG/VIAL IM PRN (18:41)
[2019-10-26] MEDS ORDERED: MORPHINE 2 MG/ML SYR IV PRN (18:41)
[2019-10-26] MEDS: INSULIN -REGULAR HUMAN 50 UNIT/0.5 ML ML SQ SCH (21:00)
[2019-10-26] MEDS ORDERED: CEFEPIME 2 GM VIAL IV SCH (21:00)
[2019-10-26] MEDS ORDERED: VANCOMYCIN 1 GM/VIAL ONE (21:11)
[2019-10-26] MEDS ORDERED: NA CHLORIDE 0.9% 250 ML ONE (21:14)
[2019-10-26] MEDS: CEFEPIME/SWI 2gm 2 GM/20 ML SYR IV SCH (21:41)
[2019-10-26] MEDS: FUROSEMIDE 40 MG/4 ML VIAL IV SCH (23:00)
--- NOTE | 2019-10-26 23:02 | HP ---
Date of Admission: 10/26/2019 Chief Complaint: Leg erythema, pain. Code Status: Full. Primary Care Physician: Leland Rdz M.D. History Of Present Illness: The patient is a 74-year-old female with past medical history of diabete s on insulin, hypertension, lymphedema, insomnia, comes in with worsening erythema of her lower extre mities. Patient was in her usual state of health. [facility], has not gone in a long time, comes in with worsening erythema of her bilateral lower extremities . Patient has chronic venous stasis ulcers. She also has noted increased pain, tenderness, and swel ling along with some subjective fevers. No chills. The patient denies any recent trauma to the lowe r extremities. Also noticed weeping. Patient's symptoms are constant, moderate, progressively worse anh. She came into the ER for further evaluation. In the ER, her vital signs were stable, she was afebrile, mildly tachypneic. She was hypoxic at 86% on room air. 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 Labs currently are pending, however, no signs of sepsis at this time. Venous Doppler is being done currently. When I saw the patient in the ER, she was awake, aler t, and oriented x3, some mild distress, ill-appearing. Past Medical History: Hypertension, diabetes insulin-requiring, lymphedema, insomnia. Surgical History: , cholecystectomy. Allergies: TO SULFA, ALL CAROLINE FOR NUMBING, ALBUTEROL, AND NOW CLAIMING ALLERGY TO MUPIROCIN. Medications: List reviewed. Social History: Patient quit smoking at the age of 37. No alcohol use or illicit drug use. Lives a t home. , has a son. Family History: Father had cancer. Mother had stroke. Review of Systems: Ten-point system reviewed, negative except as per HPI. Physical Examination: Vital Signs: Blood pressure 138/70, pulse 86, respirations 22, temperature 98.6, O2 86% on room air. General: Awake, alert, and oriented x3. Elderly female, morbidly obese, ill-appearing, in mild dist ress. HEENT: Normocephalic, atraumatic. PERRLA. EOMI. Moist mucous membranes. Oropharynx is clear. Po or dentition. Conjunctivae are anicteric. Neck: Supple. No JVD. Trachea midline. CV: S1, S2. Regular rate and rhythm. Peripheral pulses weak bilaterally. Respiratory: Diminished breath sounds, no wheezing or stridor. Patient is tachypneic. No use of ac cessory muscles. Gastrointestinal: Abdomen is soft. Patient has a large abdominal pannus with chronic changes of the skin. Positive bowel sounds. No guarding or rigidity. Extremities: No clubbing or cyanosis. Patient has 3+ edema bilateral lower extremities with some ca lf tenderness. Neuro: Cranial nerves 2 through 12 intact grossly. No focal neurological deficits. Speech is deric l. Musculoskeletal: Severe kyphosis. Skin: The patient has erythema of the bilateral lower extremities, left lower extremity worse than r ight. The patient's skin is warm to touch in the lower extremities. Patient has weeping and some ab rasions of the skin, tender to palpation. Laboratory Data: Currently pending. Imaging Studies: Mild congestive heart failure versus volume overload pattern. Doppler sonogram is currently being performed at this time. Assessment: A 74-year-old female with, 1.Bilateral lower extremity cellulitis. We will start on broad spectrum IV antibiotics with vancomy chino and cefepime. We will obtain blood cultures and wound cultures likely secondary to her chronic l ymphedema, which is getting worse. Patient also reports worsening redness with mupirocin treatment, which may or may not be accurate. [facility]. We will need to rule out deep venous thrombosis. Doppler sonogram is being obtained at this time. We will follow u p. 2.Hypoxia likely due to congestive heart failure. The patient's chest x-ray showing congestive hear t failure pattern. No reported history of congestive heart failure. BNP is pending at this time. W e will start on diuretics. We will monitor I's and O's, daily weights. Patient does not have echoca rdiogram on record. We will obtain echo. 3.Diabetes mellitus type 2, insulin requiring. We will start on sliding scale insulin and monitor b lood glucose levels. 4.Essential hypertension. Resume home medications as appropriate. 5.Chronic lymphedema with acute worsening. 6.Morbid obesity. 7.Severe kyphosis. 8.Deep vein thrombosis prophylaxis with Lovenox. Plan: Admit patient to Med-Surg, place as inpatient. Length of stay greater than 2 midnights. PT zaynab butt SA/KODAK Voice ID: [id number]
[2019-10-26 23:14] VITALS: BMI 41.3
[2019-10-26] MEDS: HYDROCODONE/APAP 10/325 TAB PO PRN (23:31)
[2019-10-27 04:17] LABS: Absolute Lymphocytes (CBC) 0.8 K/uL (0.7-4.9); Basophils % 0.6 % (0-1.3); Hematocrit 46.4 % (36.0-45.0); MPV 8.6 fL (7.6-11.3)
[2019-10-27 04:32] LABS: Potassium 3.4 mmol/L (3.5-5.1)
[2019-10-27] MEDS: FUROSEMIDE 40 MG/4 ML VIAL IV SCH ×2 (07:26→18:49)
[2019-10-27] MEDS: INSULIN -REGULAR HUMAN 50 UNIT/0.5 ML ML SQ SCH ×4 (07:30→20:54)
[2019-10-27] MEDS ORDERED: SILVER SULFADIAZINE 1% 25 GM TOP SCH (09:00)
[2019-10-27] MEDS: SILVER SULFADIAZINE 1% 25 GM TOP SCH (09:00)
[2019-10-27] MEDS ORDERED: POTASSIUM 25 MEQ EFFERV TAB PO ONE (09:00)
[2019-10-27] MEDS: CEFEPIME/SWI 2gm 2 GM/20 ML SYR IV SCH ×2 (09:00→20:54)
[2019-10-27] MEDS ORDERED: VANCOMYCIN 2 GM in NA CHLORIDE 0.9% 500 ML IVPB SCH ×2 (11:00→21:00)
[2019-10-27] MEDS: HYDROCODONE/APAP 10/325 TAB PO PRN ×2 (14:27→23:26)
--- NOTE | 2019-10-27 15:45 | P.PN ---
Subjective Date of Service: 10/27/19 Chief Complaint: Increased lower extremity swelling and erythema Patient feels her lower extremity swelling and erythema have improved. She desires to go home today. I am told Echocardiogram could not be completed due to severe kyphosis. Physical Examination - Vital Signs Temperature: 96.5 F Blood Pressure: 149/59 Pulse: 61 Respirations: 17 Pulse Ox (%): 95 - Physical Exam General: Alert, In no apparent distress, Oriented x3 HEENT: Mucous membr. moist/pink Neck: Supple, JVD not distended Respiratory: Clear to auscultation bilaterally, Diminished Cardiovascular: Regular rate/rhythm, Normal S1 S2, Edema (3+ bilateral lower extremity pitting edema) Gastrointestinal: Normal bowel sounds, Soft and benign Musculoskeletal: Erythema (Bilateral lower extremities up to the knees.), Kyphosis Integumentary: Erythema (Bilateral lower extremity weeping sores.), Venous stasis ulcer Lymphatics: Other (Bilateral lower extremity lymphedema) - Studies Laboratory Data (last 24 hrs) 10/26/19 14:15: PT 13.4 H, INR 1.14 10/26/19 14:15: WBC 9.7 D, Hgb 14.9, Hct 47.3 H, Plt Count 537 H 10/26/19 14:15: Sodium 142, Potassium 3.2 L, BUN 22 H, Creatinine 1.01, Glucose 163 H, Magnesium 2.2, Total Bilirubin 0.6, AST 18, ALT 20, Alkaline Phosphatase 136 H Assessment And Plan - Current Problems (Diagnosis) (1) Chronic cor pulmonale Current Visit: Yes Status: Acute (2) Acute on chronic heart failure Current Visit: Yes Status: Acute (3) Lower extremity cellulitis Current Visit: Yes Status: Acute (4) Diabetes Current Visit: No Status: Acute (5) Lymphedema Current Visit: No Status: Acute - Plan Continue current antibiotics. Follow wound culture IV Lasix Keep legs elevated Wound care consult appreciated. Continue local wound dressing. Daily weight, input and output. Monitor renal function on Lasix. Patient encouraged to use CPAP.
[2019-10-28 05:33] LABS: Absolute Lymphocytes (CBC) 1.2 K/uL (0.7-4.9); Basophils % 0.6 % (0-1.3); Hematocrit 45.8 % (36.0-45.0); Lymphocytes % 13.1 % (15.3-44.8); MPV 8.5 fL (7.6-11.3); RBC Red Blood Cell Count 5.77 M/uL (3.86-4.86)
[2019-10-28] MEDS: FUROSEMIDE 40 MG/4 ML VIAL IV SCH ×2 (05:44→18:41)
[2019-10-28 05:55] LABS: Potassium 3.8 mmol/L (3.5-5.1)
[2019-10-28] MEDS: INSULIN -REGULAR HUMAN 50 UNIT/0.5 ML ML SQ SCH ×3 (07:30→16:30)
[2019-10-28] MEDS: CEFEPIME/SWI 2gm 2 GM/20 ML SYR IV SCH (07:41)
[2019-10-28] MEDS: SILVER SULFADIAZINE 1% 25 GM TOP SCH (07:42)
[2019-10-28] MEDS ORDERED: POTASSIUM CL SA 10 MEQ TAB PO ONE (09:00)
--- NOTE | 2019-10-28 13:12 | P.DS ---
Admission Date: 10/26/19 Discharge Date: 10/28/19 Disposition: DC HOME/HOME HEALTH CARE Discharge Condition: FAIR Reason for Admission: Increased lower extremity swelling and erythema - Problems (1) Chronic cor pulmonale Current Visit: Yes Status: Acute (2) Acute on chronic heart failure Current Visit: Yes Status: Acute (3) Lower extremity cellulitis Current Visit: Yes Status: Acute (4) Diabetes Current Visit: No Status: Acute (5) Lymphedema Current Visit: No Status: Acute Brief History of Present Illness: 74-year-old morbidly obese woman with a history severe kyphosis, diabetes mellitus type 2, chronic lymphedema, venous stasis dermatitis and ulcers presented to the emergency department with a complaint of increased swelling and redness of bilateral lower extremities. Patient had apparently been noncompliant with wound care clinic visits. Venous Doppler of lower extremities in the ED demonstrated no DVT. She had no leukocytosis and denied fever. Patient was hospitalized due to a concern for cellulitis of the lower extremities. Hospital Course: Patient was admitted to the medical floor and treated with IV cefepime and vancomycin for possible cellulitis. Blood cultures yielded no growth. Patient was seen and evaluated by the wound care team. Her lower extremity weeping sores were dressed with Silvadene cream and Kerlix wrap. She was also treated with IV Lasix. Patient feels her lower extremity swellings and erythema have improved. Her outpatient oral Lasix is switched to torsemide to improve GI absorption. She is prescribed Augmentin and doxycycline as outpatient for possible lower extremity cellulitis. Regular follow up with wound care clinic has been re-emphasized to her. She will also be discharged with home health for nursing. Echocardiogram could not be completed due to severe kyphosis. Vital Signs/Physical Exam: Temp Pulse Resp BP Pulse Ox 97.0 F 67 15 146/64 H 95 10/28/19 12:00 10/28/19 12:00 10/28/19 12:00 10/28/19 12:10/28/19 12:00 General: Alert, In no apparent distress, Oriented x3 HEENT: Mucous membr. moist/pink Neck: Supple, JVD not distended Respiratory: Diminished Cardiovascular: Edema (3+ bilateral lower extremity pitting edema) Gastrointestinal: Normal bowel sounds, Soft and benign Musculoskeletal: Erythema Integumentary: Erythema (Lower extremity weeping sores.) Neurological: Normal speech, Normal strength at 5/5 x4 extr Laboratory Data at Discharge: WBC 9.0 K/uL (4.3-10.9) D 10/28/19 05:09 Hgb 14.5 g/dL (12.0-15.0) 10/28/19 05:09 Hct 45.8 % (36.0-45.0) H 10/28/19 05:09 Plt Count 499 K/uL (152-406) H 10/28/19 05:09 PT 13.4 SECONDS (9.5-12.5) H 10/26/19 14:15 INR 1.14 10/26/19 14:15 Sodium 142 mmol/L (136-145) 10/28/19 05:09 Potassium 3.8 mmol/L (3.5-5.1) 10/28/19 05:09 BUN 21 mg/dL (7-18) H 10/28/19 05:09 Creatinine 1.14 mg/dL (0.55-1.3) 10/28/19 05:09 Glucose 96 mg/dL (74-106) 10/28/19 05:09 Magnesium 2.0 mg/dL (1.8-2.4) 10/27/19 03:49 Total Bilirubin 0.6 mg/dL (0.2-1.0) 10/26/19 14:15 AST 18 U/L (15-37) 10/26/19 14:15 ALT 20 U/L (12-78) 10/26/19 14:15 Alkaline Phosphatase 136 U/L (45-117) H 10/26/19 14:15 Home Medications: Amlodipine [Norvasc*] 1 tab PO DAILY 05/16/19 Aspirin [Aspirin EC 81 MG] 1 tab PO DAILY 05/16/19 Atorvastatin Calcium 10 mg PO DAILY 05/16/19 Insulin Aspart [Novolog] See Protocol SQ TID 05/16/19 Insulin Degludec [Tresiba Flextouch U-200] 100 units SQ DAILY 05/16/19 allopurinoL [Zyloprim*] 100 mg PO DAILY 05/16/19 Cranberry Conc/Ascorbic Acid [Cranberry 12,600 mg Softgel] 1 each PO DAILY 10/26 Fluticasone/Salmeterol [Advair Hfa 230-21 Mcg Inhaler] 2 puff IH BID 10/26/19 Amoxicillin/Potassium Clav [Augmentin 875-125 Tablet] 1 each PO BID #14 tablet 10/28/19 Doxycycline Hyclate 100 mg PO BID #14 capsule 10/28/19 Omeprazole 20 mg PO DAILY #30 capsule. 10/28/19 Silver Sulfadiazine [Silvadene 1% Cream] 1 appl TOP DAILY #1 tube 10/28/19 Torsemide [Demadex*] 80 mg PO DAILY #30 tab 10/28/19 New Medications: Amoxicillin/Potassium Clav [Augmentin 875-125 Tablet] 1 each PO BID #14 tablet Doxycycline Hyclate 100 mg PO BID #14 capsule Omeprazole 20 mg PO DAILY #30 capsule. Silver Sulfadiazine [Silvadene 1% Cream] 1 appl TOP DAILY #1 tube Torsemide [Demadex*] 80 mg PO DAILY #30 tab Diet: ADA Activity: Fall precautions Time spent managing pt's care (in minutes): 35
[2019-10-28 15:18] VITALS: O2SAT 95
[2019-10-28 16:52] VITALS: BP 154/63; TEMP 97.5
== END 2019-10-28 19:10 | disposition home health service (06) | DRG 602 ==
LOC: ER 14:09 → ERHOLD 16:26 → 4TH 18:15
PROVIDERS: ADMIT Family Medicine; ATTEND Family Medicine
DX: L03.116 Cellulitis of left lower limb (principal); I26.09 Other pulmonary embolism with acute cor pulmonale; Z68.41 Body mass index [BMI] 40.0-44.9, adult; L03.115 Cellulitis of right lower limb; E11.9 Type 2 diabetes mellitus without complications; M40.209 Unspecified kyphosis, site unspecified; E66.01 Morbid (severe) obesity due to excess calories; I89.0 Lymphedema, not elsewhere classified; I11.0 Hypertensive heart disease with heart failure; I50.9 Heart failure, unspecified
CPT/HCPCS: 36415; 51702; 71045; 80048; 80076; 82805; 82947; 83735; 83880; 84132; 84484; 85025; 85610; 87040; 87070; 87077; 87086; 87088; 87186; 87205; 93970; 94760; 96365; 96367; 96375; 99251; 99285; J0692; J1940; J2543; J3370; J7030; J7040

== ENCOUNTER 2019-12-17 20:47 | Inpatient (IN) | payer OTHER ==
[2019-12-17 21:48] LABS: Basophils % 0.1 % (0-1.3); Hematocrit 41.6 % (36.0-45.0); Lymphocytes % 3.5 % (15.3-44.8); MPV 8.1 fL (7.6-11.3); RBC Red Blood Cell Count 5.28 M/uL (3.86-4.86)
[2019-12-17 21:51] LABS: Protime INR 1.12
[2019-12-17] MEDS ORDERED: NA CHLORIDE 0.9% 250 ML ONE (22:21)
[2019-12-17] MEDS ORDERED: VANCOMYCIN 1 GM/VIAL ONE (22:21)
--- NOTE | 2019-12-17 22:30 | RAD REPORT ---
EXAM DESCRIPTION: RAD - Chest Single View - 12/17/2019 9:34 pm CLINICAL HISTORY: COUGH Chest pain. COMPARISON: Chest Single View dated 10/26/2019; Chest Single View dated 10/18/2019; Chest Single View dated 05/16/2019; Chest Pa And Lat (2 Views) dated 01/10/2018 FINDINGS: Portable technique limits examination quality. The patient has head obscures a significant portion of the upper lobes. Mild interstitial pulmonary e fawn suspected. The heart is mildly enlarged in size. No displaced fractures. IMPRESSION: Mild CHF.
[2019-12-17 22:34] LABS: ALT/SGPT 34 U/L (12-78); Albumin 2.1 g/dL (3.4-5.0); Alkaline Phosphatase 264 U/L (45-117); BUN Blood Urea Nitrogen 133 mg/dL (7-18); Bicarbonate 24 mmol/L (21-32); Bilirubin Direct 0.3 mg/dL (0-0.2); Bilirubin Total 0.5 mg/dL (0.2-1.0); Glucose Level 237 mg/dL (74-106); NT PRO-BNP 3339 pg/mL (<125); Protein, Total 7.6 g/dL (6.4-8.2); Sodium Level 130 mmol/L (136-145); Troponin (Emerg Dept Use Only) < 0.02 ng/mL (0.0-0.045)
[2019-12-17 22:35] LABS: AST/SGOT 40 U/L (15-37); Magnesium 2.5 mg/dL (1.8-2.4); Potassium 5.5 mmol/L (3.5-5.1)
[2019-12-17 23:27] LABS: Anisocytosis 1+; Blood Morphology Comment NOTED (NOT SEEN); Platelet Estimate INCR
--- NOTE | 2019-12-17 23:53 | EDPHYS ---
Physician Documentation [facility] Name: Sonia Bright Age: 74 yrs Sex: Female : 1945 Arrival Date: 12/17/2019 Time: 20:47 Bed 6 Private MD: ED Physician Diaz Garcia HPI: 12/16 20:58 This 74 yrs old Female presents to ER via EMS with complaints of SICK PERSON. jmm 20:58 the patient presents with a swollen area of the right leg. Onset: The symptoms/episode jmm began/occurred gradually, 4 day(s) ago. This is a 74 year old female with a history of lupus, htn, lymphedema that presents to the ED with complaints of generalized body aches. Patient has a history of cellulitis to both extremities. Patient denies fever. . Historical: - Allergies: 21:08 Iodine; jd3 21:08 Lidocaine; jd3 21:08 Novocain; jd3 21:08 Sulfa (Sulfonamide Antibiotics); jd3 - Home Meds: 21:08 allopurinol 100 mg Oral tab 1 tab once daily [Active]; atorvastatin 10 mg Oral tab 1 jd3 tab once daily [Active]; furosemide 80 mg Oral tab 1 tab once daily [Active]; Novolog 100 unit/mL Sub-Q soln [Active]; spironolactone 50 mg Oral tab 1 tab 2 times per day [Active]; Advair Diskus Inhl [Active]; amlodipine 5 mg tab 1 tab once daily [Active]; Tresiba FlexTouch U-100 100 unit/mL (3 mL) subcutaneous inpn [Active]; - PMHx: 21:08 hypoxia-normally 88-95%; lymphedema; Hypertension; Lupus; EDEMA; kidney failure; jd3 Diabetes - NIDDM; COPD; Diabetes - IDDM; neck pain/crick; - Immunization history:: Adult Immunizations up to date. - Social history:: Smoking status: Patient denies any tobacco usage or history of. ROS: 20:58 Cardiovascular: Negative for chest pain, palpitations, and edema, Respiratory: Negative jmm for shortness of breath, cough, wheezing, and pleuritic chest pain. 20:58 Constitutional: Positive for body aches. 20:58 All other systems are negative. Exam: 20:58 Constitutional: This is a well developed, well nourished patient who is awake, alert, jmm and in no acute distress. Head/Face: atraumatic. Eyes: EOMI, no conjunctival erythema appreciated ENT: Moist Mucus Membranes Neck: Trachea midline, Supple Chest/axilla: Normal chest wall appearance and motion. Cardiovascular: Regular rate and rhythm. No edema appreciated Respiratory: Normal respirations, no respiratory distress appreciated Abdomen/GI: Non distended, soft 20:58 Musculoskeletal/extremity: swelling, erythema and induration noted to the right lower extremity. . 20:58 Skin: erythema and induration noted to the panis. 20:58 Neuro: Orientation: is normal, Mentation: is normal, Memory: is normal. 20:58 Psych: Behavior/mood is pleasant, cooperative. Vital Signs: 20:58 BP 137 / 61; Pulse 73; Resp 19 S; Temp 97.3(O); Pulse Ox 97% on 2 lpm NC; Weight 172.37 jd3 kg (R); Height 5 ft. 9 in. (175.26 cm) (R); Pain 5/10; 21:58 BP 132 / 52; Pulse 72; Resp 17 S; Pulse Ox 96% on 2 lpm NC; jd3 23:13 BP 121 / 53; Pulse 70; Resp 17 S; Pulse Ox 95% on R/A; jd3 12/17 00:20 BP 128 / 59; Pulse 69; Resp 18 S; Pulse Ox 95% on R/A; jd3 12/16 20:58 Body Mass Index 56.12 (172.37 kg, 175.26 cm) jd3 MDM: 12/16 21:20 Patient medically screened. domingo 23:49 Data reviewed: vital signs, nurses notes. Counseling: I had a detailed discussion with [facility] the patient and/or guardian regarding: the historical points, exam findings, and any diagnostic results supporting the discharge/admit diagnosis, lab results, the need for further work-up and treatment in the hospital. ED course: I discussed the patient with Dr. Schumacher. Recommends 1 dose of vancomycin and will further evaluate the patient. . 12/16 21:13 Order name: Basic Metabolic Panel ea 12/16 21:13 Order name: CBC with Diff ea 12/16 21:13 Order name: LFT's; Complete Time: 22:39 ea 12/16 21:13 Order name: Magnesium; Complete Time: 22:39 12/16 21:13 Order name: NT PRO-BNP; Complete Time: 22:39 12/16 21:13 Order name: PT-INR; Complete Time: 22:09 12/16 21:13 Order name: Troponin (emerg Dept Use Only); Complete Time: 22:39 12/16 21:13 Order name: Basic Metabolic Panel; Complete Time: 22:39 [facility] 12/16 21:13 Order name: CBC with Automated Diff; Complete Time: 23:29 [facility] 12/16 21:15 Order name: Blood Culture Adult (2) 12/16 21:16 Order name: Lactate; Complete Time: 22:39 12/16 21:26 Order name: Urine Microscopic Only; Complete Time: 01:09 [facility] 12/16 22:05 Order name: Manual Differential; Complete Time: 23:29 [facility] 12/17 00:28 Order name: Basic Metabolic Panel [facility] 12/16 21:13 Order name: XRAY Chest (1 view); Complete Time: 22:32 12/16 21:13 Order name: EKG; Complete Time: 21:14 12/16 21:13 Order name: Cardiac monitoring; Complete Time: 21:24 12/16 21:13 Order name: EKG - Nurse/Tech; Complete Time: 21:19 12/16 21:13 Order name: IV Saline Lock; Complete Time: 21:50 12/16 21:13 Order name: Labs collected and sent; Complete Time: 21:50 12/16 21:13 Order name: O2 Per Protocol; Complete Time: 21:24 12/16 21:13 Order name: O2 Sat Monitoring; Complete Time: 21:24 12/16 21:26 Order name: Urine Dipstick-Ancillary (obtain specimen); Complete Time: 01:09 [facility] 12/16 23:34 Order name: CT Stone Protocol [facility] 12/17 00:28 Order name: Clear Liquid [facility] 12/17 00:28 Order name: Basic Metabolic Panel [facility] 12/17 00:28 Order name: CBC with Automated Diff [facility] 12/17 00:28 Order name: CBC with Automated Diff [facility] 12/16 21:27 Order name: Cath; Complete Time: 00:06 jd3 Administered Medications: 22:29 CANCELLED (Physician Discretion): Zosyn 3.375 grams IVPB once over 60 mins; (mix in NS jd3 100 mL) 22:35 Drug: vancoMYCIN 1 grams Route: IVPB; Infused Over: 2 hrs; Site: right antecubital; d3 12/17 00:35 Follow up: Response: No adverse reaction; IV Status: Completed infusion; IV Intake: jd3 250ml Disposition: 12:11 Co-signature as Attending Physician, Diaz Garcia MD I agree with the assessment and domingo plan of care. Disposition: 12/17/19 23:52 Hospitalization ordered by Ron Schumacher for Inpatient Admission. Preliminary diagnosis are Cellulitis of right lower limb, Acute Kidney Injury. - Bed requested for Telemetry/MedSurg (Inpatient). - Status is Inpatient Admission. jd3 - Condition is Stable. - Problem is new. - Symptoms are unchanged. Signatures: Dispatcher [employer] EDDiaz Fair MD MD cha Mickail, Joel, PA PA jmm Garcia, Cindy, RN Loretta Domínguez RN RN ea Davies, Jonathon, RN RN j Corrections: (The following items were deleted from the chart) 12/16 22:29 22:04 Zosyn 3.375 grams IVPB once over 60 mins; (mix in NS 100 mL) ordered. [facility] j 22:29 22:29 Zosyn 3.375 grams IVPB once over 60 mins; (mix in NS 100 mL) [place]. [place] [id number] 12/17 00:36 12/16 23:52 Hospitalization Ordered by Ron Schumacher MD for Inpatient Admission. Preliminary diagnosis is Cellulitis of right lower limb; Acute Kidney Injury. Bed requested for Telemetry/MedSurg (Inpatient). Status is Inpatient Admission. Condition is Stable. Problem is new. Symptoms are unchanged. [facility] 12/17 01:27 00:36 12/17/2019 23:52 Hospitalization Ordered by Ron Schumacher MD for Inpatient jd3 Admission. Preliminary diagnosis is Cellulitis of right lower limb; Acute Kidney Injury. Bed requested for Telemetry/MedSurg (Inpatient). Status is Inpatient Admission. Condition is Stable. Problem is new. Symptoms are unchanged.
--- NOTE | 2019-12-17 23:53 | ER ---
Nurse's Notes [facility] Name: Sonia Bright Age: 74 yrs Sex: Female : 1945 Arrival Date: 12/17/2019 Time: 20:47 Bed 6 Private MD: Diagnosis: Cellulitis of right lower limb;Acute Kidney Injury Presentation: 12/16 20:58 Chief complaint: EMS states: "The son called EMS for the pt who has been feeling weaker jd3 and weaker over the last 4 days. she has anitra lower leg wounds that the son has been wrapping, but have been weeping through the wrapping shortly after. we also noticed a wound noted under her abdomen. the pt's main complaint is that she is aching and feeling weak all over.". Coronavirus screen: The patient has NOT traveled to a country currently being monitored by the [facility] within the last 14 days. The patient has NOT had contact with any known and/or suspected case of coronavirus. Proceed with normal triage procedures. Ebola Screen: Patient negative for fever greater than or equal to 101.5 degrees Fahrenheit, and additional compatible Ebola Virus Disease symptoms. Initial Sepsis Screen: Does the patient meet any 2 criteria? No. Patient's initial sepsis screen is negative. Does the patient have a suspected source of infection? Yes: Skin breakdown/wound. Risk Assessment: Do you want to hurt yourself or someone else? Patient reports no desire to harm self or others. 20:58 Method Of Arrival: EMS: [facility] jd3 20:58 Acuity: PAULINO 3 jd3 21:21 Onset of symptoms was December 13, 2019. jd3 Historical: - Allergies: 21:08 Iodine; jd3 21:08 Lidocaine; jd3 21:08 Novocain; jd3 21:08 Sulfa (Sulfonamide Antibiotics); jd3 - Home Meds: 21:08 allopurinol 100 mg Oral tab 1 tab once daily [Active]; atorvastatin 10 mg Oral tab 1 jd3 tab once daily [Active]; furosemide 80 mg Oral tab 1 tab once daily [Active]; Novolog 100 unit/mL Sub-Q soln [Active]; spironolactone 50 mg Oral tab 1 tab 2 times per day [Active]; Advair Diskus Inhl [Active]; amlodipine 5 mg tab 1 tab once daily [Active]; Tresiba FlexTouch U-100 100 unit/mL (3 mL) subcutaneous inpn [Active]; - PMHx: 21:08 hypoxia-normally 88-95%; lymphedema; Hypertension; Lupus; EDEMA; kidney failure; jd3 Diabetes - NIDDM; COPD; Diabetes - IDDM; neck pain/crick; - Immunization history:: Adult Immunizations up to date. - Social history:: Smoking status: Patient denies any tobacco usage or history of. Screenin:09 Abuse screen: Denies threats or abuse. Nutritional screening: No deficits noted. jd3 Tuberculosis screening: No symptoms or risk factors identified. Fall Risk IV access (20 points). Ambulatory Aid- Crutches/Cane/Walker (15 pts). Gait- Weak (10 pts.). Mental Status- Oriented to own ability (0 pts). Total Wong Fall Scale indicates Low Risk Score (25-44 pts). Fall prevention measures have been instituted. Side Rails Up X 2 Placed close to Nursing Station Frequent Obs/Assesments occuring. Assessment: 21:11 General: Appears in no apparent distress. uncomfortable, Behavior is calm, cooperative, jd3 appropriate for age. Pain: Complains of pain in pt reports aching all over. Quality of pain is described as aching. Neuro: Level of Consciousness is awake, alert, obeys commands, Oriented to person, place, time, situation. Cardiovascular: Denies chest pain, Heart tones S1 S2 present Capillary refill < 3 seconds Patient's skin is warm and dry. Rhythm is regular. Respiratory: Airway is patent Respiratory effort is even, unlabored, Respiratory pattern is regular, symmetrical, Breath sounds are clear bilaterally. Denies cough, shortness of breath. GI: Abdomen is round obese, Bowel sounds present X 4 quads. Abd is soft and non tender X 4 quads. Reports nausea, Patient currently denies abdominal pain, constipation, diarrhea, vomiting. : No signs and/or symptoms were reported regarding the genitourinary system. EENT: No signs and/or symptoms were reported regarding the EENT system. Derm: Skin is intact, Skin is dry, Skin is normal, Skin temperature is warm Wound noted Other: ANITRA lower leg wounds that are weeping through the dressing. weeping wound that is red, noted to under pt's abdominal fold. Musculoskeletal: No signs and/or symptoms reported regarding the musculoskeletal system. 21:59 Reassessment: Patient appears in no apparent distress at this time. Patient and/or jd3 family updated on plan of care and expected duration. Pain level reassessed. Patient is alert, oriented x 3, equal unlabored respirations, skin warm/dry/pink. pt reporting wanting to go home. provider notified. provider at bedside discussing plan of care. Patient states feeling better. 22:04 Reassessment: 2204 received critical result from the lab of WBC of 28.8. 23:13 Reassessment: Patient appears in no apparent distress at this time. No changes from [facility] previously documented assessment. Patient and/or family updated on plan of care and expected duration. Pain level reassessed. Patient is alert, oriented x 3, equal unlabored respirations, skin warm/dry/pink. 12/17 00:14 Reassessment: Patient appears in no apparent distress at this time. Patient and/or jd3 family updated on plan of care and expected duration. Pain level reassessed. Patient is alert, oriented x 3, equal unlabored respirations, skin warm/dry/pink. pt agreeing to be hospitalized. : Urine is brown in color and opaque. Vital Signs: 12/16 20:58 BP 137 / 61; Pulse 73; Resp 19 S; Temp 97.3(O); Pulse Ox 97% on 2 lpm NC; Weight 172.37 jd3 kg (R); Height 5 ft. 9 in. (175.26 cm) (R); Pain 5/10; 21:58 BP 132 / 52; Pulse 72; Resp 17 S; Pulse Ox 96% on 2 lpm NC; jd3 23:13 BP 121 / 53; Pulse 70; Resp 17 S; Pulse Ox 95% on R/A; d3 12/17 00:20 BP 128 / 59; Pulse 69; Resp 18 S; Pulse Ox 95% on R/A; [facility] 12/16 20:58 Body Mass Index 56.12 (172.37 kg, 175.26 cm) [facility] ED Course: 12/16 20:47 Patient arrived in ED. cf2 20:58 Placido Avitia, RN is Primary Nurse. jd3 21:06 Triage completed. jd3 21:08 Arm band placed on. EKG completed in triage. Results shown to MD. jd3 21:08 Maintain EMS IV. Dressing intact. Good blood return noted. Site clean \\T\\ dry. Gauge \\T\\ tom 3 site: 18 G right AC.. 21:09 Patient has correct armband on for positive identification. Placed in gown. Bed in low jd3 position. Call light in reach. Side rails up X2. music researcher on. Pulse ox on. NIBP on. 21:14 Dionisio Orosco PA is PHCP. [facility] 21:14 Diaz Garcia MD is Attending Physician. [facility] 21:31 XRAY Chest (1 view) In Process Unspecified. EDMS 22:35 Inserted saline lock: 22 gauge in left antecubital area, using aseptic technique. Blood ea collected. 23:27 Notified Nurse Practitioner and/or Physician Supervisor Harvesting of a critical lab result(s), sg Bands of 15. 23:50 Ron Schumacher MD is Hospitalizing Provider. [facility] 12/17 00:08 Straight cath inserted, using sterile technique, 18 Fr. Specimen obtained. ea 01:10 No provider procedures requiring assistance completed. Patient admitted, IV remains in jd3 place. Administered Medications: 12/16 22:29 CANCELLED (Physician Discretion): Zosyn 3.375 grams IVPB once over 60 mins; (mix in NS jd3 100 mL) 22:35 Drug: vancoMYCIN 1 grams Route: IVPB; Infused Over: 2 hrs; Site: right antecubital; jd3 12/17 00:35 Follow up: Response: No adverse reaction; IV Status: Completed infusion; IV Intake: jd3 250ml Intake: 00:35 IV: 250ml; Total: 250ml. jd3 Outcome: 12/16 23:52 Decision to Hospitalize by Provider. [facility] 12/17 01:10 Condition: stable jd3 Instructed on the need for admit, Demonstrated understanding of instructions. 01:26 Admitted to Med/surg accompanied by nurse, accompanied by tech, via stretcher, room jd3 218, with oxygen, with chart, Report called to Loretta BUSTAMANTE 01:27 Patient left the ED. j Signatures: Dispatcher [employer] EDMS Dario Lambert RN RN sg Mickail, Joel, PA PA jmm Antunez, Elena, RN RN ea Davies, Jonathon, RN RN jd3 Marion Perez cf2 Nina Gonsalves, ROBBY RN ah Corrections: (The following items were deleted from the chart) 00:37 00:20 BP 128 / 49; Pulse 69bpm; Resp 18bpm; Spontaneous; Pulse Ox 95% RA; conrad jd3
[2019-12-18] MEDS ORDERED: ACETAMINOPHEN 500 MG TAB PO PRN (00:26)
[2019-12-18 00:49] LABS: Urine Bacteria >50 /HPF (<20)
[2019-12-18 00:50] LABS: Urine Amorphous Sediment 2+ /HPF (NONE SEEN); Urine Coarse Granular Casts FEW /LPF (NONE SEEN); Urine Culture Reflex Order NOT NEEDED; Urine Mucus 2+ /HPF (NONE SEEN)
[2019-12-18] MEDS: NA CHLORIDE 0.9% 1,000 ML IV SCH ×3 (02:44→20:26)
--- NOTE | 2019-12-18 08:42 | EKG ---
Test Date: 2019-12-17 Test Time: 21:00:58 Milling Operator: LACHELLE MEASUREMENT RESULTS: Intervals: Rate: 71 PA: 200 QRSD: 108 QT: 458 QTc: 497 [place]: P: 50 PA: 200 QRS: -24 T: 44 INTERPRETIVE STATEMENTS: Normal sinus rhythm Cannot rule out Anterior infarct, age undetermined Abnormal ECG Compared to ECG 10/18/2019 18:24:39 Left-axis deviation no longer present Myocardial infarct finding still present Electronically Signed On 12-18-19 08:42:27 CDT by Ortiz Gonsalves
[2019-12-18] MEDS ORDERED: D50W 25 GM/50 ML SYRINGE/VIAL IV PRN (09:34)
[2019-12-18] MEDS ORDERED: GLUCAGON 1 MG/VIAL IM PRN (09:34)
[2019-12-18] MEDS: INSULIN -REGULAR HUMAN 50 UNIT/0.5 ML ML SQ SCH ×3 (11:59→20:24)
--- NOTE | 2019-12-18 12:01 | P.HP ---
Certification for Inpatient Patient admitted to: Inpatient With expected LOS: >2 Midnights Patient will require the following post-hospital care: None Practitioner: I am a practitioner with admitting privileges, knowledge of patient current condition, hospital course, and medical plan of care. Services: Services provided to patient in accordance with Admission requirements found in Title 42 Section 412.3 of the Code of Federal Regulations Patient History Date of Service: 12/18/19 Primary Care Provider: Endy Reason for admission: Sepsis, cellulitis History of Present Illness: Patient came to the emergency room with swelling and reddness of her legs. She was found to have a wbc of 28. She also had an elevation of her creatine to 4. Her baseline is 1. The patient was started on antibiotics and admitted to the floor. Patient told the PA in the er that she wanted to go home. This morning she immediately stated she wants to go. This was after several discussions about how serious her condition was Allergies azithromycin Allergy (Verified 10/26/19 23:45) Hives/Rash mupirocin Allergy (Verified 10/26/19 23:45) Itching/Hives/Rash Sulfa (Sulfonamide Antibiotics) Allergy (Verified 07/26/12 14:13) Anaphylaxis "all victorina for numbing" Allergy (Uncoded 03/31/19 08:36) Unknown Home Medications: Aspirin [Aspirin EC 81 MG] 1 tab PO DAILY 05/16/19 Atorvastatin Calcium 10 mg PO DAILY 05/16/19 Insulin Aspart [Novolog] See Protocol SQ TID 05/16/19 Insulin Degludec [Tresiba Flextouch U-200] 100 units SQ DAILY 05/16/19 allopurinoL [Zyloprim*] 100 mg PO DAILY 05/16/19 Cranberry Conc/Ascorbic Acid [Cranberry 12,600 mg Softgel] 1 each PO DAILY 10/26 Ciprofloxacin HCl [Cipro 500 MG Tablet] 500 mg PO BID 14 Days #28 tab 12/18/19 Docusate/Senna [Senokot-S*] 1 tab PO DAILY 12/18/19 Doxycycline Hyclate 100 mg PO BID 14 Days #28 capsule 12/18/19 - Past Medical/Surgical History Has patient received pneumonia vaccine in the past: Yes Diabetic: Yes -: HTN -: DM -: Lymphedema -: Insomnia -: -: Cholecystectomy - Family History Father -: Cancer Notes: prostate Mother -: Hypertension - Social History Smoking Status: Former smoker Alcohol use: No CD- Drugs: No Caffeine use: Yes Place of Residence: Home Review of Systems 10-point ROS is otherwise unremarkable Musculoskeletal: Leg Pain Integumentary: Other (erythema and swelling with drainage of the lower extremities) Physical Examination - Vital Signs Temperature: 97.1 F Blood Pressure: 128/57 Pulse: 69 Respirations: 19 Pulse Ox (%): 97 - Physical Exam General: Alert, In no apparent distress HEENT: Atraumatic, PERRLA, Mucous membr. moist/pink, EOMI, Sclerae nonicteric Neck: Supple, 2+ carotid pulse no bruit, No LAD, Without JVD or thyroid abnormality Respiratory: Clear to auscultation bilaterally, Normal air movement Cardiovascular: Regular rate/rhythm, Normal S1 S2 Gastrointestinal: Normal bowel sounds, No tenderness Musculoskeletal: No tenderness Integumentary: Skin breakdown, Tenderness/swelling, Erythema, Warmth, Other ( increased drainage from the left leg more than the right. ) Neurological: Normal gait, Normal speech, Normal strength at 5/5 x4 extr, Normal tone, Normal affect Lymphatics: No axilla or inguinal lymphadenopathy - Studies Laboratory Data (last 24 hrs) 12/17/19 21:30: PT 13.2 H, INR 1.12 12/17/19 21:30: WBC 28.8 H*, Hgb 12.7, Hct 41.6, Plt Count 655 H 12/17/19 21:30: Sodium 130 L, Potassium 5.5 H, BUN 133 H, Creatinine 4.44 H, Glucose 237 H, Magnesium 2.5 H D, Total Bilirubin 0.5, AST 40 H, ALT 34, Alkaline Phosphatase 264 H Microbiology Data (last 24 hrs): 12/17/19 21:47 Blood - Blood Gram Stain - Final Assessment and Plan - Problems (Diagnosis) (1) Gram negative sepsis Current Visit: Yes Status: Acute Plan: Gram -ve in one bottle. Will start her on cefepime. await the antibiotigram to switch her to the appropriate medications. If she leaves [facility] we can switch start her on cipro and doxycycline. However this would be the worse case. (2) Cellulitis Current Visit: Yes Status: Acute Plan: bilaterally. Will continue dressing changes and start her on the appropriate antiboitics Qualifiers: Site of cellulitis: extremity Site of cellulitis of extremity: lower extremity Laterality: unspecified laterality Qualified Code(s): L03.119 - Cellulitis of unspecified part of limb (3) Acute renal failure Current Visit: Yes Status: Acute Plan: will continue fluids. Hold the lasix. Continue monitoring the patients creatine. Have told her leaving [facility] could lead to kidney failure and dialysis. She still wishes just to go home. Qualifiers: Acute renal failure type: unspecified Qualified Code(s): N17.9 - Acute kidney failure, unspecified (4) Non compliance with medical treatment Current Visit: Yes Status: Acute Plan: Patient has been know to me for about a month. She has missed several appointment Confabulated about other providers. She is very difficulty. Have told her sepsis or kidney failure could lead to or dialysis. She states she still wants to go home. The patient would have to leave [facility] if she so chooses. Would like her family to speak with me. Her son has been reasonable and tries to take care of his mother. Several times he has refuted some of her stories, that he is willing to take care of her. (5) CHF (congestive heart failure) Current Visit: No Status: Acute Plan: She is a bit overloaded will have to hold the diuretics till the kidney function improves Qualifiers: Heart failure type: diastolic Heart failure chronicity: chronic Qualified Code(s): I50.32 - Chronic diastolic (congestive) heart failure (6) COPD (chronic obstructive pulmonary disease) with acute bronchitis Current Visit: No Status: Chronic Plan: stable no wheezing. She is not on any inhalers her or at home. Will just continue oxygen. (7) Lymphedema Current Visit: No Status: Acute Discharge Plan: Home Plan to discharge in: 48 Hours - Advance Directives Does patient have a Living Will: No Does patient have a Durable POA for Healthcare: No - Code Status/Comfort Care Code Status Assessed: No Code Status: Full Code Critical Care: No Time Spent Managing Pts Care (In Minutes): 55
[2019-12-18 12:16] LABS: Absolute Lymphocytes (CBC) 0.6 K/uL (0.7-4.9); Basophils % 0.2 % (0-1.3); Hematocrit 39.1 % (36.0-45.0); Lymphocytes % 1.7 % (15.3-44.8); MPV 8.4 fL (7.6-11.3); RBC Red Blood Cell Count 4.99 M/uL (3.86-4.86)
[2019-12-18] MEDS: CEFEPIME/SWI 1gm 10 ML IV SCH (12:20)
[2019-12-18 12:28] LABS: Potassium 5.3 mmol/L (3.5-5.1)
[2019-12-18 13:21] LABS: Anisocytosis 1+; Blood Morphology Comment NOTED (NOT SEEN); Platelet Estimate INCR; Urine White Blood Cell Casts OK
--- NOTE | 2019-12-18 16:26 | P.CNS ---
Date of Consult: 12/18/19 Reason for Consult: ARNEL Requesting Physician: Ron Schumacher Primary Care Provider: Dr. Schumacher Chief Complaint: Sepsis, cellulitis History of Present Illness: 74 yo WF HTN, DM presented to the ER with 4 days of moderate, persistent swelling of the RLE with associated generalized body aches. Denies NSAIDs. Reports poor urine output with dark urine prior to admission. Reports taking furosemide. Poor historian. 20:58 This 74 yrs old Female presents to ER via EMS with complaints of SICK PERSON. jmm 20:58 the patient presents with a swollen area of the right leg. Onset: The symptoms/episode jmm began/occurred gradually, 4 day(s) ago. This is a 74 year old female with a history of lupus, htn, lymphedema that presents to the ED with complaints of generalized body aches. Patient has a history of cellulitis to both extremities. Patient denies fever. Allergies azithromycin Allergy (Verified 10/26/19 23:45) Hives/Rash mupirocin Allergy (Verified 10/26/19 23:45) Itching/Hives/Rash Sulfa (Sulfonamide Antibiotics) Allergy (Verified 07/26/12 14:13) Anaphylaxis "all victorina for numbing" Allergy (Uncoded 03/31/19 08:36) Unknown Home medications list reviewed: Yes Home Medications: Aspirin [Aspirin EC 81 MG] 1 tab PO DAILY 05/16/19 Atorvastatin Calcium 10 mg PO DAILY 05/16/19 Insulin Aspart [Novolog] See Protocol SQ TID 05/16/19 Insulin Degludec [Tresiba Flextouch U-200] 100 units SQ DAILY 05/16/19 allopurinoL [Zyloprim*] 100 mg PO DAILY 05/16/19 Cranberry Conc/Ascorbic Acid [Cranberry 12,600 mg Softgel] 1 each PO DAILY 10/26 Ciprofloxacin HCl [Cipro 500 MG Tablet] 500 mg PO BID 14 Days #28 tab 12/18/19 Docusate/Senna [Senokot-S*] 1 tab PO DAILY 12/18/19 Doxycycline Hyclate 100 mg PO BID 14 Days #28 capsule 12/18/19 - Past Medical/Surgical History Diabetic: Yes -: HTN -: DM -: Lymphedema -: Insomnia -: -: Cholecystectomy - Family History Father Medical History: Cancer Notes: prostate Mother Medical History: Hypertension - Social History Smoking Status: Former smoker Alcohol use: No CD- Drugs: No Caffeine use: Yes Place of Residence: Home Review of Systems 10-point ROS is otherwise unremarkable General: Weakness, Malaise Respiratory: SOB with Excertion Cardiovascular: Edema Musculoskeletal: Back Pain Integumentary: Rash, Lesions Neurological: Weakness Physical Examination Temp Pulse Resp BP Pulse Ox 97.1 F 69 19 128/57 L 97 12/18/19 12:10 12/18/19 12:10 12/18/19 12:10 12/18/19 12:10 12/18/19 12:10 General: In no apparent distress, Cooperative HEENT: Mucous membr. moist/pink Neck: Supple (Kyphosis) Respiratory: Diminished Cardiovascular: Regular rate/rhythm, No rubs, Edema Gastrointestinal: Soft and benign, Non-distended, No guarding Musculoskeletal: No clubbing, No contractures, Kyphosis Integumentary: No cyanosis, Skin breakdown, Skin lesion, Tenderness/swelling, Erythema Neurological: Normal speech Urinary: Santamaria catheter Laboratory Data (last 24 hrs) 12/17/19 21:30: PT 13.2 H, INR 1.12 12/17/19 21:30: WBC 28.8 H*, Hgb 12.7, Hct 41.6, Plt Count 655 H 12/17/19 21:30: Sodium 130 L, Potassium 5.5 H, BUN 133 H, Creatinine 4.44 H, Glucose 237 H, Magnesium 2.5 H D, Total Bilirubin 0.5, AST 40 H, ALT 34, Alkaline Phosphatase 264 H Imagings Data: EXAM DESCRIPTION: RAD - Chest Single View - 12/17/2019 9:34 pm CLINICAL HISTORY: COUGH Chest pain. COMPARISON: Chest Single View dated 10/26/2019; Chest Single View dated 2019; Chest Single View dated 05/16/2019; Chest Pa And Lat (2 Views) dated 2017 FINDINGS: Portable technique limits examination quality. The patient has head obscures a significant portion of the upper lobes. Mild interstitial pulmonary edema suspected. The heart is mildly enlarged in size. No displaced fractures. IMPRESSION: Mild CHF. Conclusions/Impression: A/ ARNEL likely due to PreRenal vs ATN. Hyponatremia Hyperkalemia Hypocalcemia CKD III Diastolic CHF, chronic LE Lymphedema DM II with CKD Gout GN Sepsis with associated cellulitis. P/ Continue current POC and Medications. Continue IVF. Santamaria inserted. Continue Abx. Follow up cultures. Start Vitamin D. No NSAIDs. Send urine studies. AM labs. Daily weight. Thank you kindly for the consultation. Case reviewed with Dr. Schumacher.
[2019-12-18] MEDS: ENOXAPARIN 30 MG/0.3 ML SQ SCH (16:46)
[2019-12-18] MEDS ORDERED: CEFEPIME 1 GM/VIAL IV SCH (21:00)
[2019-12-19 04:44] LABS: Urine Appearance TURBID; Urine Bilirubin NEGATIVE (NEG); Urine Blood 3+ (NEG); Urine Color BROWN; Urine Glucose TRACE (NEG); Urine Specific Gravity 1.025 (1.005-1.030)
[2019-12-19 04:45] LABS: Urine Protein 3+ (NEG)
[2019-12-19 05:10] LABS: Urine Amorphous Sediment 1+ /HPF (NONE SEEN); Urine Bacteria 20-50 /HPF (<20); Urine Culture Reflex Order NOT NEEDED; Urine Mucus 2+ /HPF (NONE SEEN); Urine RBC TNTC /HPF (NONE SEEN)
[2019-12-19 05:38] LABS: Absolute Lymphocytes (CBC) 0.6 K/uL (0.7-4.9); Basophils % 0.3 % (0-1.3); Hematocrit 40.2 % (36.0-45.0); Lymphocytes % 2.2 % (15.3-44.8); MPV 8.5 fL (7.6-11.3); RBC Red Blood Cell Count 5.15 M/uL (3.86-4.86)
[2019-12-19 05:49] LABS: Phosphorus 8.3 mg/dL (2.5-4.9); Potassium 5.3 mmol/L (3.5-5.1)
[2019-12-19] MEDS ORDERED: NA CHLORIDE 0.9% 1,000 ML IV SCH (06:00)
[2019-12-19] MEDS: NA CHLORIDE 0.9% 1,000 ML IV SCH ×5 (07:00→23:35)
[2019-12-19] MEDS: INSULIN -REGULAR HUMAN 50 UNIT/0.5 ML ML SQ SCH ×4 (07:30→21:00)
[2019-12-19] MEDS: CALCITROL 0.25 MCG CAP PO SCH (08:20)
[2019-12-19] MEDS: allopurinoL 100 MG TAB PO SCH (08:20)
[2019-12-19] MEDS: ATORVASTATIN 10 MG TAB PO SCH (08:20)
[2019-12-19] MEDS: DOCUSATE NA/SENNA CONC 1 TAB PO SCH (09:00)
[2019-12-19] MEDS ORDERED: SODIUM CHLORIDE 0.9% 10ML INJ IV PRN (11:13)
--- NOTE | 2019-12-19 11:20 | P.PN ---
Subjective Date of Service: 12/19/19 Primary Care Provider: Dr. Schumacher Chief Complaint: Sepsis, cellulitis Subjective: Worsening (patient hypothermic this morning and started on a bear hugger) Review of Systems is unable to be obtained (Patient does not respond to questions) Physical Examination - Vital Signs Temperature: 95.8 F Blood Pressure: 108/52 Pulse: 61 Respirations: 20 Pulse Ox (%): 90 - Physical Exam General: Unresponsive HEENT: Atraumatic, PERRLA, EOMI Neck: Supple, JVD not distended Respiratory: Clear to auscultation bilaterally, Normal air movement Cardiovascular: Regular rate/rhythm, Normal S1 S2 Gastrointestinal: Normal bowel sounds, No tenderness Musculoskeletal: No tenderness Integumentary: Rash(es), Skin breakdown, Erythema, Warmth, Other (weeping wounds of the left lower leg) Neurological: Normal speech, Normal tone, Normal affect Lymphatics: No axilla or inguinal lymphadenopathy - Studies Microbiology Data (last 24 hrs): 12/17/19 22:11 Blood - Blood Blood Culture Gram Stain - Final 12/17/19 22:11 Blood - Blood Gram Stain - Final 12/17/19 21:47 Blood - Blood Blood Culture Gram Stain - Final 12/17/19 21:47 Blood - Blood Gram Stain - Final Assessment & Plan - Problems (Diagnosis) (1) Gram negative sepsis Current Visit: Yes Status: Acute Plan: Gram -ve in one bottle. Will start her on cefepime. await the antibiotigram to switch her to the appropriate medications. If she leaves [facility] we can switch start her on cipro and doxycycline. However this would be the worse case. 11/20/19 Patient wbc is improving. she has a uti and cellulitis. Which may be the source of her infection As she is hypothermic she was started on a bear hugger. The patient will continue fluid and cefepime. Considering broadening antibiotic coverage. However she seems to be responding to the cefepime. Will wait a day for the antibiotigram. Will move her to the ICU. This is difficulty as the staff is geared towards the pandemic. (2) Acute renal failure Current Visit: Yes Status: Acute Plan: will continue fluids. Hold the lasix. Continue monitoring the patients creatine. Have told her leaving [facility] could lead to kidney failure and dialysis. She still wishes just to go home. 11/20/19 Patients creatine is not improving. She has miminal urine. Will continue with aggressive hydration. Have spoken with Dr. Barbosa regarding the patient Qualifiers: Acute renal failure type: unspecified Qualified Code(s): N17.9 - Acute kidney failure, unspecified (3) Cellulitis Current Visit: Yes Status: Acute Plan: bilaterally. Will continue dressing changes and start her on the appropriate antiboitics Qualifiers: Site of cellulitis: extremity Site of cellulitis of extremity: lower extremity Laterality: unspecified laterality Qualified Code(s): L03.119 - Cellulitis of unspecified part of limb (4) UTI (urinary tract infection) Current Visit: Yes Status: Acute Plan: improving with the cefepime. Will continue the antibiotics Qualifiers: Urinary tract infection type: acute cystitis Hematuria presence: without hematuria Qualified Code(s): N30.00 - Acute cystitis without hematuria (5) Diarrhea Current Visit: Yes Status: Acute Plan: Possible due to infection or stress ulcer. Will get a guiac on the patient and start her on iv protonix. 40mg qday. will also order stool cultures Qualifiers: Diarrhea type: unspecified type Qualified Code(s): R19.7 - Diarrhea, unspecified (6) CHF (congestive heart failure) Current Visit: No Status: Acute Plan: She is a bit overloaded will have to hold the diuretics till the kidney function improves Qualifiers: Heart failure type: diastolic Heart failure chronicity: chronic Qualified Code(s): I50.32 - Chronic diastolic (congestive) heart failure (7) COPD (chronic obstructive pulmonary disease) with acute bronchitis Current Visit: No Status: Chronic Plan: stable no wheezing. She is not on any inhalers her or at home. Will just continue oxygen. (8) Lymphedema Current Visit: No Status: Acute Plan: will continue with wraps on the patient. Was planning on sending the patient to [facility] as an outpatient (9) Non compliance with medical treatment Current Visit: Yes Status: Acute Plan: Patient has been know to me for about a month. She has missed several appointment Confabulated about other providers. She is very difficulty. Have told her sepsis or kidney failure could lead to or dialysis. She states she still wants to go home. The patient would have to leave [facility] if she so chooses. Would like her family to speak with me. Her son has been reasonable and tries to take care of his mother. Several times he has refuted some of her stories, that he is willing to take care of her. Discharge Plan: Home Plan to discharge in: Greater than 2 days - Code Status/Comfort Care Code Status Assessed: No Critical Care: Yes Time Spent Managing Pts Care (In Minutes): 45
[2019-12-19] MEDS: CEFEPIME/SWI 1gm 10 ML IV SCH (12:17)
[2019-12-19] MEDS: PANTOPRAZOLE 40 MG INJ IVP SCH (12:17)
[2019-12-19] MEDS ORDERED: VANCOMYCIN 1 GM in NA CHLORIDE 0.9% 250 ML IVPB ONE (14:00)
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
--- NOTE | 2019-12-19 14:08 | RAD REPORT ---
EXAM DESCRIPTION: [facility] Single View12/19/2019 1:23 pm CLINICAL HISTORY: sob COMPARISON: December 16 FINDINGS: Small pleural effusions may be present Upper lobe vessels are prominent indicative of pulmonary venous hypertension Lungs probably are clear of acute infiltrate. The heart remains enlarged
[2019-12-19 14:09] LABS: Blood Gas Oxyhemoglobin 94.6 % (94-97); Blood O2 Saturation 96.7 % (92-98.5)
--- NOTE | 2019-12-19 15:18 | RAD REPORT ---
[facility]40 [facility] CLINICAL HISTORY: Device placement/central venous catheter placement IMPRESSION: Central venous catheter has been placed into the mid superior vena cava. No pneumothorax Mild interstitial pulmonary edema suspected
[2019-12-19 16:16] LABS: Arterial Blood Carboxyhemoglob 0.8 % (0-1.5); Blood O2 Saturation 96.7 % (92-98.5)
[2019-12-19] MEDS: ENOXAPARIN 30 MG/0.3 ML SQ SCH (16:58)
--- NOTE | 2019-12-19 19:38 | CON ---
Date of Consultation: 12/19/2019 History Of Present Illness: Ms. Bright is a female who is currently in the ICU with the diagnosis of possible sepsis and respiratory failure. I was consulted for 2 problems: 1.Bilateral lymphedema and cellulitis. 2.They have no peripheral access and they want an emergent central line placement. Most of information is obtained from the chart and from the patient's nurses. Patient cannot give an y information. The family cannot be contacted, even though several times they were trying to be appr oached in their phone numbers available. Apparently, patient has a history of lymphedema and erythem a, taking care by the primary doctors. Review of Systems: Unable to be obtained. Patient is responsive, on facemask. Physical Examination: HEENT: Pupils anicteric. Chest: Bilateral breath sounds. Abdomen: Soft and depressible. No guarding or rebound. Extremities: Bilateral lower extremity, patient has lymphedema with chronic superficial venous stasi s ulcers present on the bilateral lower extremity and feet. No fluctuance or crepitus present at thi s moment. Peripheral pulses diminished bilaterally. In the groin area, patient also has dermatitis present in that region and also below the breast. Laboratory Data: Blood work shows WBC count of 32.9, hemoglobin of 12, platelets of 602. INR is 1.1 2. Sodium is 134, potassium 5.3, glucose 192. Assessment: This is a 74-year-old patient with multiple problems and going into respiratory failure, possible diagnosis of sepsis, morbid obesity, current lymphedema, cellulitis of bilateral lower extr emity. They called me for 2 issues. First issue was the cellulitis of the legs, and as described be low, we mentioned that the patient's nurse the need to do dressing changes. Please see orders. Leg elevation. For the central line, primary doctor requested central line as an emergency. They cannot get a consent at this moment. I agree with him patient needed. If no good peripheral access, the p atient may need more in the next few minutes and the central line is justified. So, the a richard of the groin is full of open ulcers also from dermatitis and lymphedema, so that area is not acce ssible. Patient is morbidly obese. Patient has also a chronic neck flexion making jugular access ve ry difficult. So, we are going to try the right subclavian area. Please see procedure note. DIO/KODAK Voice ID: [id number] Report ID: [id number]
--- NOTE | 2019-12-19 22:44 | OP ---
Date of Procedure: 12/19/2019 Surgeon: Bharat Bethea MD Preoperative Diagnoses: No good peripheral access, morbid obesity, sepsis, cellulitis, lymphedema. Postoperative Diagnoses: No good peripheral access, morbid obesity, sepsis, cellulitis, lymphedema. Procedures: Emergent placement of a central line, right subclavian vein. Anesthesia: Local. Indication: This is case of a female who is right now in the ICU with multiple medical problems, and critical condition. Central line was requested by Dr. Lozano and the primary doctor and Dr. Schumacher in emergent fashion. They are trying to contact the family members who are available. The patient cannot give any information accurately, so this center line was required stat with the risks, which i nclude, but are not limited to, infection, bleeding, damage to adjacent structures, pneumothorax, hem othorax, VT, even that situation then we agree with the emergency situation Description Of Procedure: The patient was placed in Trendelenburg position. The right chest was pre pped and draped in a sterile fashion. A time-out was called. Local anesthesia was applied followed by insertion of an 18-gauge needle in the right subclavian vein at the first attempt. Needle was rem rosalio. After putting the guidewire in and then a central line triple lumen was placed using Seldinger technique. Excellent backflow and inflow. Line was secured in place with 3-0 nylon. Patient was b rought back to normal position. Patient tolerated the procedure well. Chest x-ray was ordered stat. HM/MODL Voice ID: [id number] Report ID: [id number]
[2019-12-20] MEDS: NA CHLORIDE 0.9% 1,000 ML IV SCH (03:00)
[2019-12-20] MEDS ORDERED: ONDANSETRON 4 MG/2 ML VIAL IV PRN (03:20)
[2019-12-20 05:32] LABS: Absolute Lymphocytes (CBC) 0.9 K/uL (0.7-4.9); Basophils % 0.3 % (0-1.3); Hematocrit 36.8 % (36.0-45.0); Lymphocytes % 3.4 % (15.3-44.8); MPV 8.1 fL (7.6-11.3); RBC Red Blood Cell Count 4.72 M/uL (3.86-4.86)
[2019-12-20 06:03] LABS: Potassium 6.2 mmol/L (3.5-5.1)
[2019-12-20] MEDS ORDERED: D50W 25 GM/50 ML SYRINGE/VIAL IV ONE (06:14)
[2019-12-20] MEDS ORDERED: CALCIUM GLUC 10% INJ 4.65 MEQ in NA CHLORIDE 0.9% 100 ML IV ONE (06:14)
[2019-12-20] MEDS ORDERED: INSULIN -REGULAR HUMAN 50 UNIT/0.5 ML ML IV ONE (06:15)
[2019-12-20] MEDS ORDERED: CALCIUM GLUCONATE 1 GM IVPB 1 GM/50 ML BAG IV ONE (06:37)
[2019-12-20] MEDS: INSULIN -REGULAR HUMAN 50 UNIT/0.5 ML ML SQ SCH ×4 (07:30→21:00)
[2019-12-20] MEDS ORDERED: FUROSEMIDE 40 MG/4 ML VIAL IV ONE (08:48)
[2019-12-20] MEDS: ATORVASTATIN 10 MG TAB PO SCH (08:52)
[2019-12-20] MEDS: CALCITROL 0.25 MCG CAP PO SCH (08:52)
[2019-12-20] MEDS: allopurinoL 100 MG TAB PO SCH (08:52)
[2019-12-20] MEDS: DOCUSATE NA/SENNA CONC 1 TAB PO SCH (08:52)
[2019-12-20] MEDS: PANTOPRAZOLE 40 MG INJ IVP SCH (09:07)
--- NOTE | 2019-12-20 09:13 | P.PN ---
Subjective Date of Service: 12/20/19 Primary Care Provider: Dr. Schumacher Chief Complaint: Sepsis, cellulitis Subjective: Worsening (Kidney functions, tachypnea) Review of Systems is unable to be obtained Physical Examination - Vital Signs Temperature: 97.4 F Blood Pressure: 99/46 Pulse: 67 Respirations: 14 Pulse Ox (%): 96 - Physical Exam General: Unresponsive HEENT: Atraumatic, PERRLA, EOMI Neck: Supple, JVD not distended Respiratory: Clear to auscultation bilaterally, Normal air movement Cardiovascular: Regular rate/rhythm, Normal S1 S2 Gastrointestinal: Normal bowel sounds, No tenderness Musculoskeletal: No tenderness Integumentary: No rashes Neurological: Normal speech, Normal tone, Normal affect Lymphatics: No axilla or inguinal lymphadenopathy - Studies Microbiology Data (last 24 hrs): 12/17/19 22:11 Blood - Blood Aerobic Blood Culture - Final Morganella Morganii 12/17/19 22:11 Blood - Blood Blood Culture Gram Stain - Final 12/17/19 22:11 Blood - Blood Anaerobic Blood Culture - Final Morganella Morganii 12/17/19 22:11 Blood - Blood Gram Stain - Final 12/17/19 21:47 Blood - Blood Blood Culture Gram Stain - Final 12/17/19 21:47 Blood - Blood Gram Stain - Final Assessment & Plan - Problems (Diagnosis) (1) Gram negative sepsis Current Visit: Yes Status: Acute Plan: Gram -ve in one bottle. Will start her on cefepime. await the antibiotigram to switch her to the appropriate medications. If she leaves [facility] we can switch start her on cipro and doxycycline. However this would be the worse case. 11/21/19 Patient has morganella. He is on the appropriate antibiotic in cefepime. Wbc continues to improve (2) Acute renal failure Current Visit: Yes Status: Acute Plan: will continue fluids. Hold the lasix. Continue monitoring the patients creatine. Have told her leaving [facility] could lead to kidney failure and dialysis. She still wishes just to go home. 11/21/19 Patients creatine is worsening. Poor urine output and hyperkalemi Qualifiers: Acute renal failure type: unspecified Qualified Code(s): N17.9 - Acute kidney failure, unspecified (3) Cellulitis Current Visit: Yes Status: Acute Plan: bilaterally. Will continue dressing changes and start her on the appropriate antiboitics Qualifiers: Site of cellulitis: extremity Site of cellulitis of extremity: lower extremity Laterality: unspecified laterality Qualified Code(s): L03.119 - Cellulitis of unspecified part of limb (4) UTI (urinary tract infection) Current Visit: Yes Status: Acute Plan: improving with the cefepime. Will continue the antibiotics Qualifiers: Urinary tract infection type: acute cystitis Hematuria presence: without hematuria Qualified Code(s): N30.00 - Acute cystitis without hematuria (5) Diarrhea Current Visit: Yes Status: Acute Plan: Possible due to infection or stress ulcer. Will get a guiac on the patient and start her on iv protonix. 40mg qday. will also order stool cultures Qualifiers: Diarrhea type: unspecified type Qualified Code(s): R19.7 - Diarrhea, unspecified (6) CHF (congestive heart failure) Current Visit: No Status: Acute Plan: She is a bit overloaded will have to hold the diuretics till the kidney function improves Qualifiers: Heart failure type: diastolic Heart failure chronicity: chronic Qualified Code(s): I50.32 - Chronic diastolic (congestive) heart failure (7) COPD (chronic obstructive pulmonary disease) with acute bronchitis Current Visit: No Status: Chronic Plan: stable no wheezing. She is not on any inhalers her or at home. Will just continue oxygen. (8) Lymphedema Current Visit: No Status: Acute Plan: will continue with wraps on the patient. Was planning on [facility] the [facility] an [facility] (9) Non compliance with medical treatment Current Visit: Yes Status: Acute Plan: Patient has been know to me for about a month. She has missed several appointment Confabulated about other providers. She is very difficulty. Have told her sepsis or kidney failure could lead to or dialysis. She states she still wants to go home. The patient would have to leave [facility] if she so chooses. Would like her family to speak with me. Her son has been reasonable and tries to take care of his mother. Several times he has refuted some of her stories, that he is willing to take care of her. (10) End of life care Current Visit: Yes Status: Acute Plan: Have gotten permission from the son to speak with his cousin. Shabana Mast. She is the cordinator for our hospitalist group. She is a very poor prognosis. Have discussed code status. At this point she is a full code per the son. However she will be a difficult intubation as she has severe scoliosis. Also is not likely to survive a code situation. Mr Mast is aware and will martial the family to provide support. (11) Hypercapnia Current Visit: Yes Status: Acute Plan: she had a pCO2 of 58-59 for the past 12 hours despite bipap. Will consult Dr. Torres (12) Guaiac + stool Current Visit: Yes Status: Acute Plan: will start serial Hct. Will type and screen and hold 2 units prbc Discharge Plan: Home Plan to discharge in: Greater than 2 days - Code Status/Comfort Care Code Status Assessed: Yes Code Status: Full Code Physician Review: Patient Assessed, Agree with Above Assessment and Plan ( family agreed. Patient is unable to respond) Critical Care: Yes Time Spent Managing Pts Care (In Minutes): 45
[2019-12-20 09:24] LABS: Arterial Blood Carboxyhemoglob 0.7 % (0-1.5); Blood Gas Oxyhemoglobin 95.7 % (94-97); Blood O2 Saturation 97.4 % (92-98.5)
--- NOTE | 2019-12-20 09:53 | P.CNS ---
Date of Consult: 12/20/19 Reason for Consult: Respiratory failure acute renal failure Primary Care Provider: Dr. Schumacher Chief Complaint: Sepsis, cellulitis History of Present Illness: Patient is 74 years of age poor baseline functioning lives at home no recent travel no exposure to anyone with viral illness became sick about 4 days ago started having worsening lower extremity Sarah progression of cellulitis as history of lymphedema presented here with acute renal failure patient is acidotic hypercapnic does not smoke Allergies azithromycin Allergy (Verified 10/26/19 23:45) Hives/Rash mupirocin Allergy (Verified 10/26/19 23:45) Itching/Hives/Rash Sulfa (Sulfonamide Antibiotics) Allergy (Verified 07/26/12 14:13) Anaphylaxis "all victorina for numbing" Allergy (Uncoded 03/31/19 08:36) Unknown Home Medications: Aspirin [Aspirin EC 81 MG] 1 tab PO DAILY 05/16/19 Atorvastatin Calcium 10 mg PO DAILY 05/16/19 Insulin Aspart [Novolog] See Protocol SQ TID 05/16/19 Insulin Degludec [Tresiba Flextouch U-200] 100 units SQ DAILY 05/16/19 allopurinoL [Zyloprim*] 100 mg PO DAILY 05/16/19 Cranberry Conc/Ascorbic Acid [Cranberry 12,600 mg Softgel] 1 each PO DAILY 10/26 Ciprofloxacin HCl [Cipro 500 MG Tablet] 500 mg PO BID 14 Days #28 tab 12/18/19 Docusate/Senna [Senokot-S*] 1 tab PO DAILY 12/18/19 Doxycycline Hyclate 100 mg PO BID 14 Days #28 capsule 12/18/19 - Past Medical/Surgical History Diabetic: Yes -: HTN -: DM -: Lymphedema -: Insomnia -: -: Cholecystectomy - Family History Father Medical History: Cancer Notes: prostate Mother Medical History: Hypertension - Social History Smoking Status: Former smoker Alcohol use: No CD- Drugs: No Caffeine use: Yes Place of Residence: Home Review of Systems General: Other (Patient is arousable stays wants to go home son at the bedside) Respiratory: Shortness of Breath Gastrointestinal: Nausea Integumentary: Other (Patient has a redness exfoliation lower extremities as per son this is worse in) Physical Examination Temp Pulse Resp BP Pulse Ox 97.4 F 67 14 99/46 L 96 12/20/19 09:13 12/20/19 09:13 12/20/19 09:13 12/20/19 09:13 12/20/19 09:13 General: Alert, Other (Intermittently responsive) HEENT: Atraumatic Neck: Supple Respiratory: Clear to auscultation bilaterally, Diminished Cardiovascular: Edema Gastrointestinal: Normal bowel sounds Musculoskeletal: Erythema, Tenderness - Problems (1) Sepsis Current Visit: Yes Status: Acute Plan: Patient is 74 years of age presented with sepsis blood cultures are positive patient is on cefepime cefepime use dose adjusted patient has some cardiomegaly is acute renal failure combined metabolic and respiratory acidosis from renal failure this suspect that she has baseline hypercapnia significantly elevated white count all consistent with sepsis so far oxygenation is satisfactory continue with BiPAP and wants to be intubated undergo CPR if needed confirmed by family members will discuss with Nephrology regarding the use of IV fluids and Lasix patient is only requiring 40% oxygen I suspect that she has either obesity hyperventilation syndrome or obstructive sleep apnea and need to be evaluated as an outpatient may qualify for a noninvasive ventilator while she is in the hospital Qualifiers: Sepsis type: sepsis due to unspecified organism Severe sepsis acute organ dysfunction type: acute renal failure Acute renal failure type: with acute tubular necrosis Severe sepsis shock status: without septic shock
[2019-12-20] MEDS ORDERED: NA CHLORIDE 0.9% 1,000 ML IV SCH (10:00)
[2019-12-20] MEDS ORDERED: NA CHLORIDE 0.9% 1,000 ML ONE (11:01)
[2019-12-20 11:28] LABS: Hematocrit 37.1 % (36.0-45.0)
[2019-12-20 11:54] LABS: Potassium 6.1 mmol/L (3.5-5.1)
[2019-12-20] MEDS ORDERED: SOD POLYSTYREN SUL 15 GM/60 ML UCUP PO ONE (13:21)
[2019-12-20] MEDS: CEFEPIME/SWI 1gm 10 ML IV SCH (13:52)
[2019-12-20 17:22] LABS: Hematocrit 37.1 % (36.0-45.0)
[2019-12-20 17:37] LABS: Potassium 5.8 mmol/L (3.5-5.1)
[2019-12-20] MEDS: ENOXAPARIN 30 MG/0.3 ML SQ SCH (17:39)
[2019-12-20 19:56] VITALS: O2SAT 96
[2019-12-20 23:14] LABS: Hematocrit 36.6 % (36.0-45.0)
[2019-12-21 00:01] LABS: Potassium 5.8 mmol/L (3.5-5.1)
[2019-12-21 05:39] LABS: Hematocrit 36.4 % (36.0-45.0)
[2019-12-21 05:53] LABS: Potassium 5.5 mmol/L (3.5-5.1)
[2019-12-21] MEDS: INSULIN -REGULAR HUMAN 50 UNIT/0.5 ML ML SQ SCH ×4 (07:30→21:00)
--- NOTE | 2019-12-21 08:37 | P.PN ---
Subjective Date of Service: 12/21/19 Primary Care Provider: Dr. Schumacher Chief Complaint: Sepsis, cellulitis Subjective: Worsening Review of Systems is unable to be obtained Physical Examination - Vital Signs Temperature: 96.4 F Blood Pressure: 101/83 Pulse: 59 Respirations: 18 Pulse Ox (%): 92 - Physical Exam General: Unresponsive (wakes and says yes or no) HEENT: Atraumatic, PERRLA, EOMI Neck: Supple, JVD not distended Respiratory: Clear to auscultation bilaterally, Normal air movement Cardiovascular: Regular rate/rhythm, Normal S1 S2 Gastrointestinal: Normal bowel sounds, No tenderness Musculoskeletal: No tenderness Integumentary: No rashes Neurological: Normal speech, Normal tone, Normal affect Lymphatics: No axilla or inguinal lymphadenopathy - Studies Microbiology Data (last 24 hrs): 12/17/19 21:47 Blood - Blood Aerobic Blood Culture - Final Morganella Morganii 12/17/19 21:47 Blood - Blood Blood Culture Gram Stain - Final 12/17/19 21:47 Blood - Blood Anaerobic Blood Culture - Final Morganella Morganii 12/17/19 21:47 Blood - Blood Gram Stain - Final 12/17/19 22:11 Blood - Blood Aerobic Blood Culture - Final Morganella Morganii 12/17/19 22:11 Blood - Blood Blood Culture Gram Stain - Final 12/17/19 22:11 Blood - Blood Anaerobic Blood Culture - Final Morganella Morganii 12/17/19 22:11 Blood - Blood Gram Stain - Final Assessment & Plan - Problems (Diagnosis) (1) Gram negative sepsis Current Visit: Yes Status: Acute Plan: Gram -ve in one bottle. Will start her on cefepime. await the antibiotigram to switch her to the appropriate medications. If she leaves [facility] we can switch start her on cipro and doxycycline. However this would be the worse case. 11/22/19 Patient has morganella. Afebrile. Will continue monitoring (2) Acute renal failure Current Visit: Yes Status: Acute Plan: will continue fluids. Hold the lasix. Continue monitoring the patients creatine. Have told her leaving [facility] could lead to kidney failure and dialysis. She still wishes just to go home. 11/22/19 Patients creatine is worsening. Poor urine output and hyperkalemia. Will discuss with nephrology today. Patient is not a good candidate for dialysis [facility]. Transportation is difficult. She also has heart failure. The combination of esrd and heart failure is a very poor prognosis. Qualifiers: Acute renal failure type: unspecified Qualified Code(s): N17.9 - Acute kidney failure, unspecified (3) Cellulitis Current Visit: Yes Status: Acute Plan: bilaterally. Will continue dressing changes and start her on the appropriate antiboitics Qualifiers: Site of cellulitis: extremity Site of cellulitis of extremity: lower extremity Laterality: unspecified laterality Qualified Code(s): L03.119 - Cellulitis of unspecified part of limb (4) UTI (urinary tract infection) Current Visit: Yes Status: Acute Plan: improving with the cefepime. Will continue the antibiotics Qualifiers: Urinary tract infection type: acute cystitis Hematuria presence: without hematuria Qualified Code(s): N30.00 - Acute cystitis without hematuria (5) Diarrhea Current Visit: Yes Status: Acute Plan: Possible due to infection or stress ulcer. Will get a guiac on the patient and start her on iv protonix. 40mg qday. will also order stool cultures Qualifiers: Diarrhea type: unspecified type Qualified Code(s): R19.7 - Diarrhea, unspecified (6) CHF (congestive heart failure) Current Visit: No Status: Acute Plan: She is a bit overloaded will have to hold the diuretics till the kidney function improves Qualifiers: Heart failure type: diastolic Heart failure chronicity: chronic Qualified Code(s): I50.32 - Chronic diastolic (congestive) heart failure (7) COPD (chronic obstructive pulmonary disease) with acute bronchitis Current Visit: No Status: Chronic Plan: stable no wheezing. She is not on any inhalers her or at home. Will just continue oxygen. (8) Lymphedema Current Visit: No Status: Acute Plan: will continue with wraps on the patient. Was planning [facility] the [facility] an [facility] (9) End of life care Current Visit: Yes Status: Acute Plan: Have gotten permission from the son to speak with his cousin. Shabana Mast. She is the cordinator for our hospitalist group. She is a very poor prognosis. Have discussed code status. At this point she is a full code per the son. However she will be a difficult intubation as she has severe scoliosis. Also is not likely to survive a code situation. Mr Mast is aware and will martial the family to provide support. 11/22/19. Will discuss dialysis with her niece (10) Hypercapnia Current Visit: Yes Status: Acute Plan: she had a pCO2 of 58-59 for the past 12 hours despite bipap. Will consult Dr. Torres (11) Guaiac + stool Current Visit: Yes Status: Acute Plan: will start serial Hct. Will type and screen and hold 2 units prbc 12/21/19 HB is stable (12) Non compliance with medical treatment Current Visit: Yes Status: Acute Plan: Patient has been know to me for about a month. She has missed several appointment Confabulated about other providers. She is very difficulty. Have told her sepsis or kidney failure could lead to or dialysis. She states she still wants to go home. The patient would have to leave [facility] if she so chooses. Would like her family to speak with me. Her son has been reasonable and tries to take care of his mother. Several times he has refuted some of her stories, that he is willing to take care of her. Discharge Plan: Home Plan to discharge in: Greater than 2 days - Code Status/Comfort Care Code Status Assessed: No Physician Review: Patient Assessed, Agree with Above Assessment and Plan ( family agreed. Patient is unable to respond) Critical Care: Yes Time Spent Managing Pts Care (In Minutes): 30
[2019-12-21] MEDS: CALCITROL 0.25 MCG CAP PO SCH (09:00)
[2019-12-21] MEDS: allopurinoL 100 MG TAB PO SCH (09:32)
[2019-12-21] MEDS: ATORVASTATIN 10 MG TAB PO SCH (09:32)
[2019-12-21] MEDS: DOCUSATE NA/SENNA CONC 1 TAB PO SCH (09:32)
[2019-12-21 11:14] LABS: Hematocrit 35.8 % (36.0-45.0)
[2019-12-21 11:28] LABS: Potassium 5.4 mmol/L (3.5-5.1)
[2019-12-21] MEDS: CEFEPIME/SWI 1gm 10 ML IV SCH (13:27)
[2019-12-21 13:44] LABS: Arterial Blood Carboxyhemoglob 1.1 % (0-1.5); Blood Gas Oxyhemoglobin 93.1 % (94-97); Blood O2 Saturation 94.9 % (92-98.5)
[2019-12-21] MEDS: ENOXAPARIN 30 MG/0.3 ML SQ SCH (17:00)
--- NOTE | 2019-12-21 17:00 | P.PN ---
Date of Service: 12/21/19 Had a family meeting in the hospital parking lot(due to covid precautions). Patients sister and niece(Ilya Mast) were present. With and son. Discussed the patients kidney failure. Have discussed the option of temporary dialysis for a week vs hospice. The son Cirilo stated last night she felt she was dying. The family did not feel she would survive dialysis. Have told her that the oil heaterman survival of a patient with CHF and ESRD is very poor. They [facility] would be best. Home hospice would be too difficult on the . Who is 79 and in poor health(they have been for 54 years) . Will have follow up with him. Will consult [facility]. Have spent 30 min in the family meeting. Thank you for allowing me to be a part of the patients care.
[2019-12-21 19:06] LABS: HBsAG Nonreactive (Nonreactive)
--- NOTE | 2019-12-21 21:42 | P.PN ---
Date of Service: 12/21/19 Vital Signs Temp Pulse Resp BP Pulse Ox 96.2 F L 71 26 H 119/48 L 96 12/21/19 19:00 12/21/19 19:00 12/21/19 19:00 12/21/19 19:00 12/21/19 19:00 Medications Acetaminophen (Tylenol -Extra Strength) 500 mg PO Q6H PRN PRN Reason: Pain scale 2-4 (Mild) Stop: 01/17/20 00:27 Allopurinol (Zyloprim) 100 mg PO DAILY [facility] Stop: 01/18/20 09:01 Last Admin: 12/21/19 09:32 Dose: 100 mg Atorvastatin Calcium (Lipitor) 10 mg PO DAILY [facility] Stop: 01/18/20 09:01 Last Admin: 12/21/19 09:32 Dose: 10 mg Calcitriol (Rocaltrol) 0.5 mcg PO DAILY [facility] Stop: 01/18/20 09:01 Last Admin: 12/21/19 09:00 Dose: Not Given Dextrose (Dextrose 50% Syringe/Vial) 12.5 gm IV PRN PRN; Protocol PRN Reason: HYPOGLYCEMIA Stop: 01/17/20 09:35 Enoxaparin Sodium (Lovenox 30 Mg Inj) 30 mg SQ DAILY 5 PM [facility] Stop: 01/17/20 17:01 Last Admin: 12/21/19 17:00 Dose: Not Given Glucagon (Glucagen) 1 mg IM 1X PRN; Protocol PRN Reason: HYPOGLYCEMIA Stop: 01/17/20 09:35 Cefepime HCl (Maxipime 1 Gm/10 Ml Ivp) 10 mls @ 200 mls/hr IV Q24H [facility] Stop: 01/17/20 12:01 Last Admin: 12/21/19 13:27 Dose: 10 mls Insulin Human Regular (Novolin -R) 0 unit SQ ACHS [facility]; Protocol Stop: 01/17/20 11:31 Last Admin: 12/21/19 16:30 Dose: Not Given Ondansetron HCl (Zofran) 2 mg IV Q6H PRN PRN Reason: NAUSEA / VOMITING Stop: 01/19/20 03:21 Last Admin: 12/20/19 03:30 Dose: 2 mg Senna/Docusate Sodium (Senokot-S) 1 tab PO DAILY [facility] Stop: 01/18/20 09:01 Last Admin: 12/21/19 09:32 Dose: 1 tab Sodium Chloride (Normal Saline Flush) 10 ml IV BID [facility] Stop: 01/17/20 09:01 Last Admin: 12/21/19 09:33 Dose: 10 ml Sodium Chloride (Sodium Chloride 10 Ml Inj) 10 ml IV UD PRN PRN Reason: Diluant Stop: 01/18/20 11:14 Last Admin: 12/19/19 12:17 Dose: 10 ml Microbiology Results 12/17/19 21:47 Blood - Blood Aerobic Blood Culture - Final Morganella Morganii 12/17/19 21:47 Blood - Blood Blood Culture Gram Stain - Final 12/17/19 21:47 Blood - Blood Anaerobic Blood Culture - Final Morganella Morganii 12/17/19 21:47 Blood - Blood Gram Stain - Final 12/17/19 22:11 Blood - Blood Aerobic Blood Culture - Final Morganella Morganii 12/17/19 22:11 Blood - Blood Blood Culture Gram Stain - Final 12/17/19 22:11 Blood - Blood Anaerobic Blood Culture - Final Morganella Morganii 12/17/19 22:11 Blood - Blood Gram Stain - Final Assessment/ Plan: Nephrology Currently on Bipap for respiratory failure. Limited IH/ ROS due to acute illness Vitals, medications, blood work and imaging reviewed in the chart. General: In no apparent distress, Cooperative HEENT: Mucous membr. moist/pink Neck: Supple (Kyphosis) Respiratory: Diminished Cardiovascular: Regular rate/rhythm, No rubs, Edema Gastrointestinal: Soft and benign, Non-distended, No guarding Musculoskeletal: No clubbing, No contractures, Kyphosis Integumentary: No cyanosis, Skin breakdown, Skin lesion, Tenderness/swelling, Erythema Neurological: Normal speech Urinary: Santamaria catheter Greater than 30min patient care. Laboratory Data (last 24 hrs) 12/17/19 21:30: PT 13.2 H, INR 1.12 12/17/19 21:30: WBC 28.8 H*, Hgb 12.7, Hct 41.6, Plt Count 655 H 12/17/19 21:30: Sodium 130 L, Potassium 5.5 H, BUN 133 H, Creatinine 4.44 H, Glucose 237 H, Magnesium 2.5 H D, Total Bilirubin 0.5, AST 40 H, ALT 34, Alkaline Phosphatase 264 H Imagings Data: EXAM DESCRIPTION: RAD - Chest Single View - 12/17/2019 9:34 pm CLINICAL HISTORY: COUGH Chest pain. COMPARISON: Chest Single View dated 10/26/2019; Chest Single View dated 2019; Chest Single View dated 05/16/2019; Chest Pa And Lat (2 Views) dated 2017 FINDINGS: Portable technique limits examination quality. The patient has head obscures a significant portion of the upper lobes. Mild interstitial pulmonary edema suspected. The heart is mildly enlarged in size. No displaced fractures. IMPRESSION: Mild CHF. Conclusions/Impression: A/ ARNEL likely due to ATN. Hyponatremia Hyperkalemia Hypocalcemia CKD III Diastolic CHF, chronic LE Lymphedema DM II with CKD Gout GN Sepsis with associated cellulitis. Acute hypercapnic respiratory failure. P/ Continue current POC and Medications. Furosemide as needed. Continue Abx. Follow up cultures. Continue Bipap. No NSAIDs. Send urine studies. AM labs. Daily weight. Case reviewed with Dr. Schumacher. May consider acute HD though the prognosis seems poor. Possible hospice?
[2019-12-22 05:37] LABS: Absolute Lymphocytes (CBC) 0.9 K/uL (0.7-4.9); Basophils % 0.2 % (0-1.3); Hematocrit 33.6 % (36.0-45.0); Lymphocytes % 4.5 % (15.3-44.8); MPV 8.4 fL (7.6-11.3); RBC Red Blood Cell Count 4.36 M/uL (3.86-4.86)
[2019-12-22 05:51] VITALS: BMI 41.1
[2019-12-22 06:31] LABS: Albumin 1.7 g/dL (3.4-5.0); Bilirubin Total 0.5 mg/dL (0.2-1.0); Magnesium 2.1 mg/dL (1.8-2.4); Protein, Total 6.5 g/dL (6.4-8.2); Uric Acid 10.2 mg/dL (2.6-6.0)
[2019-12-22 06:35] LABS: Potassium 5.9 mmol/L (3.5-5.1)
[2019-12-22] MEDS: INSULIN -REGULAR HUMAN 50 UNIT/0.5 ML ML SQ SCH (07:30)
[2019-12-22] MEDS: CALCITROL 0.25 MCG CAP PO SCH (08:24)
[2019-12-22] MEDS: DOCUSATE NA/SENNA CONC 1 TAB PO SCH (08:24)
[2019-12-22] MEDS: allopurinoL 100 MG TAB PO SCH (08:24)
[2019-12-22] MEDS: ATORVASTATIN 10 MG TAB PO SCH (08:24)
[2019-12-22 08:41] LABS: Anisocytosis 1+; Blood Morphology Comment NOTED (NOT SEEN); Platelet Estimate ADEQ; Poikilocytosis 1+
--- NOTE | 2019-12-22 08:56 | P.PN ---
Subjective Date of Service: 12/22/19 Primary Care Provider: Dr. Schumacher Chief Complaint: Sepsis, cellulitis Subjective: Worsening (Patient is worsening. The patient is less responsive) Review of Systems is unable to be obtained Physical Examination - Vital Signs Temperature: 98.7 F Blood Pressure: 113/45 Pulse: 81 Respirations: 28 Pulse Ox (%): 96 - Physical Exam General: Unresponsive HEENT: Atraumatic, PERRLA, EOMI Neck: Supple, JVD not distended Respiratory: Clear to auscultation bilaterally, Normal air movement Cardiovascular: Regular rate/rhythm, Normal S1 S2 Gastrointestinal: Normal bowel sounds, No tenderness Musculoskeletal: No tenderness Integumentary: No rashes Neurological: Normal speech, Normal tone, Normal affect Lymphatics: No axilla or inguinal lymphadenopathy - Studies Microbiology Data (last 24 hrs): 12/17/19 21:47 Blood - Blood Aerobic Blood Culture - Final Morganella Morganii 12/17/19 21:47 Blood - Blood Blood Culture Gram Stain - Final 12/17/19 21:47 Blood - Blood Anaerobic Blood Culture - Final Morganella Morganii 12/17/19 21:47 Blood - Blood Gram Stain - Final Assessment & Plan - Problems (Diagnosis) (1) End of life care Current Visit: Yes Status: Acute Plan: Have gotten permission from the son to speak with his cousin. Shabana Mast. She is the cordinator for our hospitalist group. She is a very poor prognosis. Have discussed code status. At this point she is a full code per the son. However she will be a difficult intubation as she has severe scoliosis. Also is not likely to survive a code situation. Mr Mast is aware and will martial the family to provide support. 11/23/19. Plan is for home hospice. Thank you for allowing us to take part in his care (2) Gram negative sepsis Current Visit: Yes Status: Acute Plan: Gram -ve in one bottle. Will start her on cefepime. await the antibiotigram to switch her to the appropriate medications. If she leaves [facility] we can switch start her on cipro and doxycycline. However this would be the worse case. 11/22/19 Patient has morganella. Afebrile. Will continue monitoring (3) Acute renal failure Current Visit: Yes Status: Acute Plan: will continue fluids. Hold the lasix. Continue monitoring the patients creatine. Have told her leaving [facility] could lead to kidney failure and dialysis. She still wishes just to go home. 11/22/19 Patients creatine is worsening. Poor urine output and hyperkalemia. Will discuss with nephrology today. Patient is not a good candidate for dialysis extract puller. Transportation is difficult. She also has heart failure. The combination of esrd and heart failure is a very poor prognosis. Qualifiers: Acute renal failure type: unspecified Qualified Code(s): N17.9 - Acute kidney failure, unspecified (4) Cellulitis Current Visit: Yes Status: Acute Plan: bilaterally. Will continue dressing changes and start her on the appropriate antiboitics Qualifiers: Site of cellulitis: extremity Site of cellulitis of extremity: lower extremity Laterality: unspecified laterality Qualified Code(s): L03.119 - Cellulitis of unspecified part of limb (5) UTI (urinary tract infection) Current Visit: Yes Status: Acute Plan: improving with the cefepime. Will continue the antibiotics Qualifiers: Urinary tract infection type: acute cystitis Hematuria presence: without hematuria Qualified Code(s): N30.00 - Acute cystitis without hematuria (6) Diarrhea Current Visit: Yes Status: Acute Plan: Possible due to infection or stress ulcer. Will get a guiac on the patient and start her on iv protonix. 40mg qday. will also order stool cultures Qualifiers: Diarrhea type: unspecified type Qualified Code(s): R19.7 - Diarrhea, unspecified (7) CHF (congestive heart failure) Current Visit: No Status: Acute Plan: She is a bit overloaded will have to hold the diuretics till the kidney function improves Qualifiers: Heart failure type: diastolic Heart failure chronicity: chronic Qualified Code(s): I50.32 - Chronic diastolic (congestive) heart failure (8) COPD (chronic obstructive pulmonary disease) with acute bronchitis Current Visit: No Status: Chronic Plan: stable no wheezing. She is not on any inhalers her or at home. Will just continue oxygen. (9) Lymphedema Current Visit: No Status: Acute Plan: will continue with wraps on the patient. Was planning on sending the patient to [facility] an outpatient (10) Hypercapnia Current Visit: Yes Status: Acute Plan: she had a pCO2 of 58-59 for the past 12 hours despite bipap. Will consult Dr. Torres (11) Guaiac + stool Current Visit: Yes Status: Acute Plan: will start serial Hct. Will type and screen and hold 2 units prbc 12/21/19 HB is stable (12) Non compliance with medical treatment Current Visit: Yes Status: Acute Plan: Patient has been know to me for about a month. She has missed several appointment Confabulated about other providers. She is very difficulty. Have told her sepsis or kidney failure could lead to or dialysis. She states she still wants to go home. The patient would have to leave a if she so chooses. Would like her family to speak with me. Her son has been reasonable and tries to take care of his mother. Several times he has refuted some of her stories, that he is willing to take care of her. Discharge Plan: Home Plan to discharge in: 24 Hours Critical Care: No Time Spent Managing Pts Care (In Minutes): 25
--- NOTE | 2019-12-22 11:45 | P.PN ---
Subjective Date of Service: 12/22/19 Primary Care Provider: Dr. Schumacher Chief Complaint: Sepsis, cellulitis Patient's condition is stable she is still her alert her although her renal function is significantly worse on BiPAP Review of Systems is unable to be obtained Physical Examination - Vital Signs Temperature: 98.7 F Blood Pressure: 116/46 Pulse: 78 Respirations: 26 Pulse Ox (%): 95 - Physical Exam General: Other (Patient does wake up) Respiratory: Clear to auscultation bilaterally, Diminished Cardiovascular: Edema Gastrointestinal: Normal bowel sounds, Soft and benign - Studies Microbiology Data (last 24 hrs): 12/17/19 21:47 Blood - Blood Aerobic Blood Culture - Final Morganella Morganii 12/17/19 21:47 Blood - Blood Blood Culture Gram Stain - Final 12/17/19 21:47 Blood - Blood Anaerobic Blood Culture - Final Morganella Morganii 12/17/19 21:47 Blood - Blood Gram Stain - Final Assessment & Plan - Problems (Diagnosis) (1) Sepsis Current Visit: Yes Status: Acute Plan: Patient admitted with sepsis is not developed ATN progressive worsening of renal function patient has a combination of both metabolic and respiratory acidosis tolerating BiPAP renal function has gotten progressively worse blood pressure is stable oxygenation satisfactory on 40% oxygen blood cultures are positive her prognosis is very poor I agree with hospice care and DNR Dannie blood gases satisfactory hypercapnia has improved cefepime his adequate antibiotic therapy has E organisms isolated sensitive Qualifiers: Sepsis type: sepsis due to unspecified organism Severe sepsis acute organ dysfunction type: acute renal failure Acute renal failure type: with acute tubular necrosis Severe sepsis shock status: without septic shock Physician Review: Patient Assessed, Agree with Above Assessment and Plan ( family agreed. Patient is unable to respond)
[2019-12-22 15:35] VITALS: BP 125/49; TEMP 96.7
--- NOTE | 2019-12-22 20:23 | P.PN ---
Date of Service: 12/22/19 Vital Signs Temp Pulse Resp BP Pulse Ox 96.7 F L 76 18 125/49 L 96 12/22/19 14:00 12/22/19 14:00 12/22/19 14:00 12/22/19 14:00 12/22/19 14:00 Microbiology Results 12/17/19 21:47 Blood - Blood Aerobic Blood Culture - Final Morganella Morganii 12/17/19 21:47 Blood - Blood Blood Culture Gram Stain - Final 12/17/19 21:47 Blood - Blood Anaerobic Blood Culture - Final Morganella Morganii 12/17/19 21:47 Blood - Blood Gram Stain - Final 12/17/19 22:11 Blood - Blood Aerobic Blood Culture - Final Morganella Morganii 12/17/19 22:11 Blood - Blood Blood Culture Gram Stain - Final 12/17/19 22:11 Blood - Blood Anaerobic Blood Culture - Final Morganella Morganii 12/17/19 22:11 Blood - Blood Gram Stain - Final Assessment/ Plan: Nephrology Currently on Bipap for respiratory failure. Limited IH/ ROS due to acute illness. Family made the patient DNR and is considering hospice. Vitals, medications, blood work and imaging reviewed in the chart. General: In no apparent distress, Cooperative HEENT: Mucous membr. moist/pink Neck: Supple (Kyphosis) Respiratory: Diminished Cardiovascular: Regular rate/rhythm, No rubs, Edema Gastrointestinal: Soft and benign, Non-distended, No guarding Musculoskeletal: No clubbing, No contractures, Kyphosis Integumentary: No cyanosis, Skin breakdown, Skin lesion, Tenderness/swelling, Erythema Neurological: Normal speech Urinary: Santamaria catheter Greater than 30min patient care. Laboratory Data (last 24 hrs) 12/17/19 21:30: PT 13.2 H, INR 1.12 12/17/19 21:30: WBC 28.8 H*, Hgb 12.7, Hct 41.6, Plt Count 655 H 12/17/19 21:30: Sodium 130 L, Potassium 5.5 H, BUN 133 H, Creatinine 4.44 H, Glucose 237 H, Magnesium 2.5 H D, Total Bilirubin 0.5, AST 40 H, ALT 34, Alkaline Phosphatase 264 H Imagings Data: EXAM DESCRIPTION: RAD - Chest Single View - 12/17/2019 9:34 pm CLINICAL HISTORY: COUGH Chest pain. COMPARISON: Chest Single View dated 10/26/2019; Chest Single View dated 2019; Chest Single View dated 05/16/2019; Chest Pa And Lat (2 Views) dated 2017 FINDINGS: Portable technique limits examination quality. The patient has head obscures a significant portion of the upper lobes. Mild interstitial pulmonary edema suspected. The heart is mildly enlarged in size. No displaced fractures. IMPRESSION: Mild CHF. Conclusions/Impression: A/ ARNEL likely due to ATN. Hyponatremia Hyperkalemia Hypocalcemia CKD III Diastolic CHF, chronic LE Lymphedema DM II with CKD Gout GN Sepsis with associated cellulitis. Acute hypercapnic respiratory failure. P/ Continue current POC and Medications. Recommend Kayexalate for hyperkalemia. Furosemide as needed. Continue Abx. Follow up cultures. Continue Bipap. Pressor therapy as needed. No NSAIDs. AM labs PRN. Daily weight. Case reviewed with Dr. Schumacher. Poor prognosis. Plan for hospice.
--- NOTE | 2019-12-23 08:45 | P.DS ---
Admission Date: 12/18/19 Discharge Date: 12/23/19 Primary Care Provider: Dr. Schumacher Disposition: HOSPICE-HOME Discharge Condition: CRITICAL Reason for Admission: Sepsis, cellulitis - Problems (1) End of life care Status: Acute (2) Gram negative sepsis Status: Acute (3) Acute renal failure Status: Acute Qualifiers: Acute renal failure type: unspecified Qualified Code(s): N17.9 - Acute kidney failure, unspecified (4) Cellulitis Status: Acute Qualifiers: Site of cellulitis: extremity Site of cellulitis of extremity: lower extremity Laterality: unspecified laterality Qualified Code(s): L03.119 - Cellulitis of unspecified part of limb (5) UTI (urinary tract infection) Status: Acute Qualifiers: Urinary tract infection type: acute cystitis Hematuria presence: without hematuria Qualified Code(s): N30.00 - Acute cystitis without hematuria (6) Diarrhea Status: Acute Qualifiers: Diarrhea type: unspecified type Qualified Code(s): R19.7 - Diarrhea, unspecified (7) CHF (congestive heart failure) Status: Acute Qualifiers: Heart failure type: diastolic Heart failure chronicity: chronic Qualified Code(s): I50.32 - Chronic diastolic (congestive) heart failure (8) COPD (chronic obstructive pulmonary disease) with acute bronchitis Status: Chronic (9) Lymphedema Status: Acute (10) Hypercapnia Status: Acute (11) Guaiac + stool Status: Acute (12) Non compliance with medical treatment Status: Acute Brief History of Present Illness: Patient came to the emergency room with swelling and reddness of her legs. She was found to have a wbc of 28. She also had an elevation of her creatine to 4. Her baseline is 1. The patient was started on antibiotics and admitted to the floor. Patient told the PA in the er that she wanted to go home. This morning she immediately stated she wants to go. This was after several discussions about how serious her condition was Hospital Course: Patient was admitted with Sepsis. Either from her leg wounds or the UTI. She had acute renal failure. Which worsened despite fluids and lasix. Met with the family. Who decided on hospice. Went home as the family wished to visit and the hospital is limiting visitors due to the pandemic. Received a message from her niece. The patient last night. I wish the patient family the best. Thank you for allowing us to take part in the situation Vital Signs/Physical Exam: Temp Pulse Resp BP Pulse Ox 96.7 F L 76 18 125/49 L 96 12/22/19 14:00 12/22/19 14:00 12/22/19 14:00 12/22/19 14:00 12/22/19 14:00 Laboratory Data at Discharge: WBC 20.4 K/uL (4.3-10.9) H* D 12/22/19 05:10 Hgb 10.6 g/dL (12.0-15.0) L 12/22/19 05:10 Hct 33.6 % (36.0-45.0) L 12/22/19 05:10 Plt Count 436 K/uL (152-406) H 12/22/19 05:10 PT 13.2 SECONDS (9.5-12.5) H 12/17/19 21:30 INR 1.12 12/17/19 21:30 Sodium 139 mmol/L (136-145) 12/22/19 05:10 Potassium 5.9 mmol/L (3.5-5.1) H* 12/22/19 05:10 BUN 177 mg/dL (7-18) H D 12/22/19 05:10 Creatinine 5.62 mg/dL (0.55-1.3) H* 12/22/19 05:10 Glucose 169 mg/dL (74-106) H 12/22/19 05:10 Uric Acid 10.2 mg/dL (2.6-6.0) H 12/22/19 05:10 Phosphorus 8.3 mg/dL (2.5-4.9) H 12/19/19 05:16 Magnesium 2.1 mg/dL (1.8-2.4) 12/22/19 05:10 Total Bilirubin 0.5 mg/dL (0.2-1.0) 12/22/19 05:10 AST 32 U/L (15-37) 12/22/19 05:10 ALT 30 U/L (12-78) 12/22/19 05:10 Alkaline Phosphatase 299 U/L (45-117) H 12/22/19 05:10 Home Medications: Aspirin [Aspirin EC 81 MG] 1 tab PO DAILY 05/16/19 Atorvastatin Calcium 10 mg PO DAILY 05/16/19 Insulin Aspart [Novolog] See Protocol SQ TID 05/16/19 Insulin Degludec [Tresiba Flextouch U-200] 100 units SQ DAILY 05/16/19 allopurinoL [Zyloprim*] 100 mg PO DAILY 05/16/19 Cranberry Conc/Ascorbic Acid [Cranberry 12,600 mg Softgel] 1 each PO DAILY 10/26 Ciprofloxacin HCl [Cipro 500 MG Tablet] 500 mg PO BID 14 Days #28 tab 12/18/19 Docusate/Senna [Senokot-S*] 1 tab PO DAILY 12/18/19 Doxycycline Hyclate 100 mg PO BID 14 Days #28 capsule 12/18/19 New Medications: Ciprofloxacin HCl [Cipro 500 MG Tablet] 500 mg PO BID 14 Days #28 tab Doxycycline Hyclate 100 mg PO BID 14 Days #28 capsule
== END 2019-12-22 14:37 | disposition hospice, home (50) | DRG 871 ==
LOC: ER 20:47 → ERHOLD 12-18 00:25 → 2ND 12-18 00:52 → 3RD-ICU 12-19 13:08
PROVIDERS: ADMIT Internal Medicine; ATTEND Internal Medicine
PROC: 02HV33Z Insertion of Infusion Device into Superior Vena Cava, Percutaneous Approach (ICD-10-PCS; principal; 2019-12-19)
DX: A41.59 Other Gram-negative sepsis (principal); I50.33 Acute on chronic diastolic (congestive) heart failure; N17.0 Acute kidney failure with tubular necrosis; J96.02 Acute respiratory failure with hypercapnia; J44.0 Chronic obstructive pulmonary disease with (acute) lower respiratory infection; E87.1 Hypo-osmolality and hyponatremia; I13.0 Hypertensive heart and chronic kidney disease with heart failure and stage 1 through stage 4 chronic kidney disease, or unspecified chronic kidney disease; N30.00 Acute cystitis without hematuria; L97.819 Non-pressure chronic ulcer of other part of right lower leg with unspecified severity; L97.829 Non-pressure chronic ulcer of other part of left lower leg with unspecified severity; Z68.43 Body mass index [BMI] 50.0-59.9, adult; L03.116 Cellulitis of left lower limb; E87.4 Mixed disorder of acid-base balance; L03.115 Cellulitis of right lower limb; R65.20 Severe sepsis without septic shock; Z79.899 Other long term (current) drug therapy; Z79.4 Long term (current) use of insulin; M32.9 Systemic lupus erythematosus, unspecified; Z88.1 Allergy status to other antibiotic agents; Z88.2 Allergy status to sulfonamides; Z90.49 Acquired absence of other specified parts of digestive tract; Z87.891 Personal history of nicotine dependence; Z91.19 Patient's noncompliance with other medical treatment and regimen; J20.9 Acute bronchitis, unspecified; I89.0 Lymphedema, not elsewhere classified; E87.5 Hyperkalemia; E83.51 Hypocalcemia; N18.3 Chronic kidney disease, stage 3 (moderate); E11.22 Type 2 diabetes mellitus with diabetic chronic kidney disease; M10.9 Gout, unspecified; T68.XXXA Hypothermia, initial encounter; R19.7 Diarrhea, unspecified; Z51.5 Encounter for palliative care; I83.018 Varicose veins of right lower extremity with ulcer other part of lower leg; I83.028 Varicose veins of left lower extremity with ulcer other part of lower leg; E66.01 Morbid (severe) obesity due to excess calories
CPT/HCPCS: 36415; 51702; 71045; 80048; 80053; 80076; 81001; 81015; 82043; 82274; 82570; 82805; 82947; 83520; 83605; 83735; 83880; 84100; 84300; 84484; 84550; 85014; 85018; 85025; 85610; 86021; 86038; 86160; 86317; 86704; 86850; 86900; 86901; 87040; 87077; 87086; 87088; 87186; 87205; 87340; 88108; 93005; 94660; 94760; 96365; 96366; 99285; C9113; J0610; J0692; J1650; J1940; J2405; J7030